=== PATIENT | male | born 1935 | race Caucasian/White ===

== ENCOUNTER 2019-04-30 08:38 | Emergency (ER) | payer MEDICARE, BC ==
[2019-04-30 08:59] VITALS: BP 128/71
[2019-04-30] MEDS ORDERED: Sodium Chloride 0.9% 10 ML Syringe FLUSH PRN (09:13)
--- NOTE | 2019-04-30 09:22 | EDM.PDOC ---
ED HPI GENERAL MEDICAL PROBLEM - General Chief Complaint: General Stated Complaint: FEELING WEAK AFTER HAVING DAILYSIS PORT PUT IN Time Seen by Provider: 04/30/19 08:53 Source of Information: Reports: Patient, Family History Limitations: Reports: No Limitations - History of Present Illness INITIAL COMMENTS - FREE TEXT/NARRATIVE: The patient presents with generalized weakness. This started yesterday. On Thursday he had a fistula put in his right arm. He had fistula put in back in December but it failed. He says his legs feel like they are giving out. He feels weak to move. He has no fever but he has chills at times. He has no cough or chest pain. He does have shortness of breath at times but that is normal for him. He has no abdominal pain, nausea or vomiting and he is eating okay. He has a history of bladder cancer that was treated with chemo. He is not sure why his kidney's failed he thought it may be related to the chemo and cancer from a few years ago. He has a pacemaker. That was put in years ago and he is not sure why. He has no dysuria or diarrhea. Onset: Gradual Duration: Day(s): (Yesterday) Severity: Moderate Improves with: Reports: None Worsens with: Reports: None Associated Symptoms: Reports: Fever/Chills, Shortness of Breath. Denies: Chest Pain, Cough, Headaches, Nausea/Vomiting - Related Data Allergies Allergy/AdvReac Type Severity Reaction Status Date / Time No Known Allergies Allergy Verified 04/30/19 08:59 Home Meds: Home Meds Aspirin 81 mg PO DAILY 09/30/15 [History] Desonide [Desowen] 60 gm TP BID PRN 09/30/15 [History] Finasteride [Proscar] 5 mg PO DAILY 09/30/15 [History] Metoprolol Succinate [Toprol XL] 50 mg PO BEDTIME 09/30/15 [History] Simvastatin [Zocor] 40 mg PO BEDTIME 09/30/15 [History] Tamsulosin [Flomax] 0.4 mg PO BEDTIME 09/30/15 [History] Cefpodoxime [Vantin] 400 mg PO BID #12 tab 10/07/15 [Rx] Past Medical History HEENT History: Reports: Hard of Hearing, Impaired Vision Other HEENT History: wears glasses Cardiovascular History: Reports: Afib, High Cholesterol, Hypertension, Pacemaker Genitourinary History: Reports: BPH, UTI, Recurrent, Other (See Below) Other Genitourinary History: enlarged prostate Musculoskeletal History: Reports: Arthritis, Gout Oncologic (Cancer) History: Reports: Bladder - Past Surgical History HEENT Surgical History: Reports: Cataract Surgery GI Surgical History: Reports: Colonoscopy Male Surgical History: Reports: TURBT-Transurethral Resection of Bladder Tumor ED ROS GENERAL - Review of Systems Review Of Systems: See Below Constitutional: Reports: Chills, Malaise, Weakness, Fatigue. Denies: Fever HEENT: Reports: No Symptoms Respiratory: Reports: No Symptoms Cardiovascular: Reports: No Symptoms Endocrine: Reports: No Symptoms GI/Abdominal: Reports: No Symptoms : Reports: No Symptoms Musculoskeletal: Reports: No Symptoms Skin: Reports: No Symptoms ED EXAM, GENERAL - Physical Exam Exam: See Below Exam Limited By: No Limitations General Appearance: Alert, No Apparent Distress Ears: Normal External Exam Nose: Normal Inspection Head: Atraumatic, Normocephalic Neck: Normal Inspection Respiratory/Chest: No Respiratory Distress, Lungs Clear, Normal Breath Sounds Cardiovascular: Regular Rate, Rhythm, No Edema, No Murmur GI/Abdominal: Soft, Non-Tender, No Organomegaly, No Mass Extremities: Other (Right arm has an incision in the distal upper arm. Palpable thril is noted. Mild edema in the distal arm.) Course - Vital Signs Last Recorded V/S: Last Vital Signs Temp 97.9 F 04/30/19 08:56 Pulse 79 04/30/19 08:56 Resp 16 04/30/19 08:56 BP 128/71 04/30/19 08:56 Pulse Ox 100 04/30/19 08:56 - Orders/Labs/Meds Orders: Active Orders 24 hr Category Date Time Status Cardiac Monitoring [RC] . DIRECTED Care 04/30/19 09:13 Active EKG Documentation Completion [RC] STAT Care 04/30/19 09:14 Active Peripheral IV Care [RC] . DIRECTED Care 04/30/19 09:14 Active Chest 1V Frontal [CR] Stat Exams 04/30/19 09:14 Taken Sodium Chloride 0.9% [Saline Flush] Med 04/30/19 09:13 Active 10 ml FLUSH ASDIRECTED PRN Peripheral IV Insertion Adult [OM.PC] Stat Oth 04/30/19 09:13 Ordered Medication Orders Sodium Chloride (Saline Flush) 10 ml FLUSH ASDIRECTED PRN PRN Reason: Keep Vein Open Labs: Laboratory Tests 04/30/19 04/30/19 04/30/19 Range/Units 09:35 09:35 11:38 WBC 8.79 (4.23-9.07) K/mm3 RBC 3.39 L (4.63-6.08) M/mm3 Hgb 9.2 L (13.7-17.5) gm/L Hct 30.6 L (40.1-51.0) % MCV 90.3 (79.0-92.2) fl MCH 27.1 (25.7-32.2) pg MCHC 30.1 L (32.2-35.5) g/dl RDW Std Deviation 46.7 H (35.1-43.9) fL Plt Count 181 (163-337) K/mm3 MPV 9.8 (9.4-12.3) fl Neut % (Auto) 73.8 H (34.0-67.9) % Lymph % (Auto) 9.6 L (21.8-53.1) % Parker % (Auto) 8.5 (5.3-12.2) % Eos % (Auto) 7.6 H (0.8-7.0) Baso % (Auto) 0.3 (0.1-1.2) % Neut # (Auto) 6.48 H (1.78-5.38) K/mm3 Lymph # (Auto) 0.84 L (1.32-3.57) K/mm3 Parker # (Auto) 0.75 (0.30-0.82) K/mm3 Eos # (Auto) 0.67 H (0.04-0.54) K/mm3 Baso # (Auto) 0.03 (0.01-0.08) K/mm3 Manual Slide Review Abnormal smear Sodium 141 (136-145) mEq/L Potassium 3.9 (3.5-5.1) mEq/L Chloride 104 (98-107) mEq/L Carbon Dioxide 22 (21-32) mEq/L Anion Gap 18.9 H (5-15) BUN 90 H D (7-18) mg/dL Creatinine 4.4 H D (0.7-1.3) mg/dL Est Cr Clr Drug Dosing 14.45 mL/min Estimated GFR (MDRD) 13 (>60) mL/min BUN/Creatinine Ratio 20.5 H (14-18) Glucose 114 (83-115) mg/dL Calcium 9.0 (8.5-10.1) mg/dL Magnesium 1.9 (1.8-2.4) mg/dl Total Bilirubin 0.3 (0.2-1.0) mg/dL AST 16 (15-37) U/L ALT 16 (16-63) U/L Alkaline Phosphatase 43 L (46-116) U/L Troponin I 0.078 H* (0.00-0.056) ng/mL Total Protein 6.3 L (6.4-8.2) g/dl Albumin 2.8 L (3.4-5.0) g/dl Globulin 3.5 gm/dL Albumin/Globulin Ratio 0.8 L (1-2) Urine Color Yellow (Yellow) Urine Appearance Clear (Clear) Urine pH 7.0 (5.0-8.0) Ur Specific [place] 1.015 (1.005-1.030) Urine Protein 2+ H (Negative) Urine Glucose (UA) Negative (Negative) Urine Ketones Negative (Negative) Urine Occult Blood 1+ H (Negative) Urine Nitrite Negative (Negative) Urine Bilirubin Negative (Negative) Urine Urobilinogen 0.2 (0.2-1.0) Ur Leukocyte Esterase 1+ H (Negative) Urine RBC 0-5 (0-5) /hpf Urine WBC 0-5 (0-5) /hpf Ur Epithelial Cells 0-5 (0-5) /hpf Urine Bacteria Rare (FEW) /hpf Urine Mucus Not seen (FEW) /hpf 04/30/19 Range/Units 12:00 WBC (4.23-9.07) K/mm3 RBC (4.63-6.08) M/mm3 Hgb (13.7-17.5) gm/L Hct (40.1-51.0) % MCV (79.0-92.2) fl MCH (25.7-32.2) pg MCHC (32.2-35.5) g/dl RDW Std Deviation (35.1-43.9) fL Plt Count (163-337) K/mm3 MPV (9.4-12.3) fl Neut % (Auto) (34.0-67.9) % Lymph % (Auto) (21.8-53.1) % Parker % (Auto) (5.3-12.2) % Eos % (Auto) (0.8-7.0) Baso % (Auto) (0.1-1.2) % Neut # (Auto) (1.78-5.38) K/mm3 Lymph # (Auto) (1.32-3.57) K/mm3 Parker # (Auto) (0.30-0.82) K/mm3 Eos # (Auto) (0.04-0.54) K/mm3 Baso # (Auto) (0.01-0.08) K/mm3 Manual Slide Review Sodium (136-145) mEq/L Potassium (3.5-5.1) mEq/L Chloride (98-107) mEq/L Carbon Dioxide (21-32) mEq/L Anion Gap (5-15) BUN (7-18) mg/dL Creatinine (0.7-1.3) mg/dL Est Cr Clr Drug Dosing mL/min Estimated GFR (MDRD) (>60) mL/min BUN/Creatinine Ratio (14-18) Glucose (83-115) mg/dL Calcium (8.5-10.1) mg/dL Magnesium (1.8-2.4) mg/dl Total Bilirubin (0.2-1.0) mg/dL AST (15-37) U/L ALT (16-63) U/L Alkaline Phosphatase (46-116) U/L Troponin I 0.080 H* (0.00-0.056) ng/mL Total Protein (6.4-8.2) g/dl Albumin (3.4-5.0) g/dl Globulin gm/dL Albumin/Globulin Ratio (1-2) Urine Color (Yellow) Urine Appearance (Clear) Urine pH (5.0-8.0) Ur Specific [place] (1.005-1.030) Urine Protein (Negative) Urine Glucose (UA) (Negative) Urine Ketones (Negative) Urine Occult Blood (Negative) Urine Nitrite (Negative) Urine Bilirubin (Negative) Urine Urobilinogen (0.2-1.0) Ur Leukocyte Esterase (Negative) Urine RBC (0-5) /hpf Urine WBC (0-5) /hpf Ur Epithelial Cells (0-5) /hpf Urine Bacteria (FEW) /hpf Urine Mucus (FEW) /hpf Meds: Medications Generic Name Dose Route Start Last Admin Trade Name Freq PRN Reason Stop Dose Admin Sodium Chloride 10 ml 04/30/19 09:13 Saline Flush FLUSH ASDIRECTED PRN Keep Vein Open - Re-Assessments/Exams Free Text/Narrative Re-Assessment/Exam: 04/30/19 09:24 I ordered an IV saline lock, EKG, CXR, labs and UA. 04/30/19 13:14 His EKG shows a NSR with PVCs and Q waves in the anterior leads. 04/30/19 13:15 His WBC is normal at 8.79. His Hgb was low at 9.2. That is near baseline for him of 9.4. His anion gap was elevated at 18.9. His BUN was is elevated at 90. His creatinine was elevated at 4.4. His troponin is elevated at 0.078. I rechecked a troponin and it was 0.08. I called [facility] and talked to the coil repair technician Dr Lopez and he said this is normal. I will discharge him to home. Departure - Departure Time of Disposition: 13:20 Disposition: Home, Self-Care 01 Condition: Good Clinical Impression: Generalized weakness, Kidney disease Anemia Qualifiers: Anemia type: other cause Other causes of anemia: other cause, not classified Qualified Code(s): D64.89 - Other specified anemias - Discharge Information *PRESCRIPTION DRUG MONITORING PROGRAM REVIEWED*: No *COPY OF PRESCRIPTION DRUG MONITORING REPORT IN PATIENT [place]: No Referrals: Jasper Haines MD [Primary Care Provider] - 1 Week Forms: ED Department Discharge Additional Instructions: Take your medication as prescribed. Follow up with your doctor within 1 week. Please return if you are worse. - My Orders Last 24 Hours: My Active Orders 04/30/19 09:13 Cardiac Monitoring [RC] . DIRECTED Sodium Chloride 0.9% [Saline Flush] 10 ml FLUSH ASDIRECTED PRN Peripheral IV Insertion Adult [OM.PC] Stat 04/30/19 09:14 EKG Documentation Completion [RC] STAT Peripheral IV Care [RC] . DIRECTED Chest 1V Frontal [CR] Stat - Assessment/Plan Last 24 Hours: My Active Orders 04/30/19 09:13 Cardiac Monitoring [RC] . DIRECTED Sodium Chloride 0.9% [Saline Flush] 10 ml FLUSH ASDIRECTED PRN Peripheral IV Insertion Adult [OM.PC] Stat 04/30/19 09:14 EKG Documentation Completion [RC] STAT Peripheral IV Care [RC] . DIRECTED Chest 1V Frontal [CR] Stat
--- NOTE | 2019-05-01 11:46 | CR ---
Chest: Portable view of the chest was obtained. Comparison: Prior chest x-ray of 10/02/15. Heart size and mediastinum are within normal limits for portable technique. Nodular density is seen adjacent to the upper left cardiac apex within the left lung which appears stable from previous exam. No acute parenchymal change is appreciated. Bichamber pacemaker is present. Bony structures are grossly intact. Impression: 1. Stable findings as noted above. 2. Nothing acute is appreciated on portable chest x-ray. Diagnostic code #2
== END 2019-04-30 13:34 | disposition home or self-care (01) ==
LOC: JD.ED 08:38
DX: R53.1 Weakness (principal); D64.89 Other specified anemias; N28.9 Disorder of kidney and ureter, unspecified; I10 Essential (primary) hypertension; I48.91 Unspecified atrial fibrillation; E78.00 Pure hypercholesterolemia, unspecified; N40.0 Benign prostatic hyperplasia without lower urinary tract symptoms; M19.90 Unspecified osteoarthritis, unspecified site; M10.9 Gout, unspecified; Z79.82 Long term (current) use of aspirin; Z79.899 Other long term (current) drug therapy
CPT/HCPCS: 36415; 71045; 71045-26; 80053; 81001; 83735; 84484; 85025; 93005; 99285-25

== ENCOUNTER 2019-05-06 01:47 | Emergency (ER) | payer MEDICARE, BC ==
[2019-05-06 01:58] VITALS: BP 124/66
--- NOTE | 2019-05-06 02:37 | EDM.PDOC ---
ED HPI GENERAL MEDICAL PROBLEM - General Chief Complaint: Fever Stated Complaint: [facility] Time Seen by Provider: 05/06/19 02:11 Source of Information: Reports: Patient, Family (, son) History Limitations: Reports: No Limitations - History of Present Illness INITIAL COMMENTS - FREE TEXT/NARRATIVE: Mr. Tucker is a very pleasant 83-year-old gentleman with a past medical history significant for stage V renal insufficiency and paroxysmal atrial fibrillation, who underwent a right AV fistula placement on 04/26/2019 at [facility]. He was seen in our emergency department on 04/30/2019 with a complaint of generalized weakness. He was found to be hemodynamically stable and afebrile. Workup included a CBC, a CMP, a troponin I, a urinalysis, a chest x- ray, and an ECG. His workup was, for the most part, unremarkable, with the exception that his BUN/Cr were elevated at 90/4.4, and his troponin elevated at 0.078, likely due to his renal insufficiency. The patient was discharged home with a prescription for Bactrim, to treat possible right arm cellulitis. The patient now returns to the ED with a complaint of continued generalized weakness, worse since 21:00 last night, then a fever of 102.8 measured just before midnight tonight. The patient also vomited once tonight. He has not had a cough. No recent watery diarrhea. The patient reports chronic mild dyspnea, that is unchanged. In the ED, the patient was found to be in atrial fibrillation, confirmed by ECG. He is afebrile, saturating 95% on room air. The patient's PCP is Dr. Jasper Haines. His Vascular Surgeon is Dr. Chas Bernard. His Health Lead is Dr. Danial Cohen. His Steel Sampler is Dr. Mala Flanagan. - Related Data Allergies Allergy/AdvReac Type Severity Reaction Status Date / Time No Known Allergies Allergy Verified 04/30/19 08:59 Home Meds: Home Meds Aspirin 81 mg PO DAILY 09/30/15 [History] Metoprolol Succinate [Toprol XL] 50 mg PO BEDTIME 09/30/15 [History] Simvastatin [Zocor] 40 mg PO BEDTIME 09/30/15 [History] Tamsulosin [Flomax] 0.4 mg PO BEDTIME 09/30/15 [History] Allopurinol [Zyloprim] 200 mg PO DAILY 05/06/19 [History] Dutasteride [Avodart] 0.5 mg PO DAILY 05/06/19 [History] Furosemide 20 mg PO DAILY 05/06/19 [History] Sodium Bicarbonate 650 mg PO DAILY 05/06/19 [History] Past Medical History HEENT History: Reports: Hard of Hearing, Impaired Vision Other HEENT History: wears glasses Cardiovascular History: Reports: Afib (paroxysmal), High Cholesterol, Hypertension Genitourinary History: Reports: BPH, Chronic Renal Insuffiency (Stage V) Musculoskeletal History: Reports: Arthritis, Gout (suspected, not confirmed) Oncologic (Cancer) History: Reports: Bladder (dx'd 2013, s/p TURBT + CTx) - Past Surgical History HEENT Surgical History: Reports: Cataract Surgery (bilateral) Cardiovascular Surgical History: Reports: Brook (2009) GI Surgical History: Reports: Colonoscopy (x 1). Denies: EGD Male Surgical History: Reports: TURBT-Transurethral Resection of Bladder Tumor (2013) Social & Family History - Tobacco Use Smoking Status *Q: Former Smoker Years of Tobacco use: 12 Packs/Tins Daily: 0.8 Month/Year Tobacco Last Used: Quit 1975 - Caffeine Use Caffeine Use: Reports: Coffee - Alcohol Use Alcohol Use History: No - Recreational Drug Use Recreational Drug Use: No - Living Situation & Occupation Living situation: Reports: , with Spouse Occupation: Retired ED ROS GENERAL - Review of Systems Review Of Systems: ROS reveals no pertinent complaints other than HPI. ED EXAM, SEPSIS - Physical Exam Exam: See Below Exam Limited By: No Limitations General Appearance: Alert, WD/WN, No Apparent Distress Eye Exam: Bilateral Eye: EOMI, Normal Inspection Ears: Normal External Exam, Hearing Loss Nose: Normal Inspection Throat/Mouth: Normal Inspection, Normal Lips, Normal Voice, No Airway Compromise Head: Atraumatic, Normocephalic Neck: Normal Inspection, Full Range of Motion. No: Lymphadenopathy (L), Lymphadenopathy (R) Respiratory/Chest: No Respiratory Distress, Lungs Clear, Normal Breath Sounds, No Accessory Muscle Use. No: Decreased Breath Sounds, Crackles, Rhonchi, Wheezing, Stridor, Prolonged Expiration Cardiovascular: Normal Peripheral Pulses, No Gallop, No JVD, No Murmur, No Rub, Tachycardia, Irregularly Irregular Peripheral Pulses: 4+: Radial (L), Radial (R) GI/Abdominal Exam: Normal Bowel Sounds, Soft, Non-Tender, No Organomegaly, No Distention, No Abnormal Bruit, No Mass (Male) Exam: Deferred Rectal (Males) Exam: Deferred Back: Normal Inspection, Full Range of Motion, NT Extremities: Normal Inspection, Normal Range of Motion, Normal Capillary Refill , Other (1+ pitting pretibial edema bilaterally. Good thrill over right antecubetal AVF. No associated erythema, swelling, or tenderness.) Neurological: Alert, Oriented, Normal Cognition, No Motor/Sensory Deficits Psychiatric: Normal Affect Skin: Warm, Dry, Intact, Normal Color, No Rash Lymphatic: Bilateral: No Adenopathy EKG INTERPRETATION EKG Date: 05/06/19 Time: 02:11 Rhythm: Other (NSR with 2 PVCs to A-fib with RVR) Rate (Beats/Min): 157 [place]: Normal P-Wave: Present (for part of the ECG. When present, no AE or AVB) QRS: Normal ST-T: Normal QT: Normal Comparison: Change From Previous EKG (Was in NSR 04/30/2019) Course - Vital Signs Last Recorded V/S: Last Vital Signs Temp 37.8 C 05/06/19 01:54 Pulse 136 H 05/06/19 01:54 Resp 15 05/06/19 01:54 BP 124/66 05/06/19 01:54 Pulse Ox 95 05/06/19 01:54 - Orders/Labs/Meds Orders: Active Orders 24 hr Category Date Time Status EKG Documentation Completion [RC] ROUTINE Care 05/06/19 02:03 Active Chest 1V Frontal [CR] Stat Exams 05/06/19 02:13 Taken CULTURE BLOOD [BC] Stat Lab 05/06/19 02:45 Received CULTURE BLOOD [BC] Stat Lab 05/06/19 03:00 Received Linezolid [Zyvox] 600 mg Med 05/06/19 04:09 Active Premix Bag 1 bag IV ONETIME Sodium Chloride 0.9% [Normal Saline] 1,000 ml Med 05/06/19 02:45 Active IV ASDIRECTED Blood Culture x2 Reflex Set [OM.PC] Stat Oth 05/06/19 02:13 Ordered Medication Orders Sodium Chloride (Normal Saline) 1,000 mls @ 150 mls/hr IV ASDIRECTED DOUGLAS Last Admin: 05/06/19 02:51 Dose: 150 mls/hr Linezolid 600 mg/ Premix 300 mls @ 300 mls/hr IV ONETIME STA Stop: 05/06/19 05:08 Last Admin: 05/06/19 04:23 Dose: 300 mls/hr Labs: Laboratory Tests 05/06/19 05/06/19 05/06/19 Range/Units 02:35 02:45 02:45 WBC 11.24 H (4.23-9.07) K/mm3 RBC 3.04 L (4.63-6.08) M/mm3 Hgb 8.3 L (13.7-17.5) gm/L Hct 26.8 L (40.1-51.0) % MCV 88.2 (79.0-92.2) fl MCH 27.3 (25.7-32.2) pg MCHC 31.0 L (32.2-35.5) g/dl RDW Std Deviation 45.6 H (35.1-43.9) fL Plt Count 208 (163-337) K/mm3 MPV 9.3 L (9.4-12.3) fl Neutrophils % (Manual) 81 H (40-60) % Band Neutrophils % 5 (0-10) % Lymphocytes % (Manual) 3 L (20-40) % Atypical Lymphs % 0 % Monocytes % (Manual) 9 (2-10) % Eosinophils % (Manual) 2 (0.8-7.0) % Basophils % (Manual) 0 L (0.2-1.2) Toxic Granulation 1+ slight Platelet Estimate Adequate Plt Morphology Comment Normal Hypochromasia 1+ slight Anisocytosis 1+ slight Ovalocytes 1+ slight RBC Morph Comment Not Reportable D-Dimer, Quantitative 3.18 H (0.19-0.50) mg/L Puncture Site Lt radial ABG pH 7.47 H (7.35-7.45) ABG pCO2 23.0 L (35.0-45.0) mmHg ABG pO2 64.0 L (80.0-100.0) mmHg ABG HCO3 16.4 L (22.0-26.0) meq/L ABG O2 Saturation 93.3 L (96.0-97.0) % ABG Base Excess -6.1 L (-2-2.0) Chirag Test Positive A-a Gradient 57 mmHg O2 Delivery Device Room air Oxygen Flow Rate 0.0 FiO2 21.00 (21.00-100.00) % Sodium (136-145) mEq/L Potassium (3.5-5.1) mEq/L Chloride (98-107) mEq/L Carbon Dioxide (21-32) mEq/L Anion Gap (5-15) BUN (7-18) mg/dL Creatinine (0.7-1.3) mg/dL Est Cr Clr Drug Dosing mL/min Estimated GFR (MDRD) (>60) mL/min BUN/Creatinine Ratio (14-18) Glucose (83-115) mg/dL Lactic Acid (0.4-2.0) mmol/L Calcium (8.5-10.1) mg/dL Magnesium (1.8-2.4) mg/dl Total Bilirubin (0.2-1.0) mg/dL AST (15-37) U/L ALT (16-63) U/L Alkaline Phosphatase (46-116) U/L Troponin I (0.00-0.056) ng/mL Total Protein (6.4-8.2) g/dl Albumin (3.4-5.0) g/dl Globulin gm/dL Albumin/Globulin Ratio (1-2) Urine Color (Yellow) Urine Appearance (Clear) Urine pH (5.0-8.0) Ur Specific [place] (1.005-1.030) Urine Protein (Negative) Urine Glucose (UA) (Negative) Urine Ketones (Negative) Urine Occult Blood (Negative) Urine Nitrite (Negative) Urine Bilirubin (Negative) Urine Urobilinogen (0.2-1.0) Ur Leukocyte Esterase (Negative) Urine RBC (0-5) /hpf Urine WBC (0-5) /hpf Ur Squamous Epith Cells (0-5) /hpf Urine Bacteria (FEW) /hpf Hyaline Casts (0-5) /lpf Urine Mucus (FEW) /hpf 05/06/19 05/06/19 05/06/19 Range/Units 02:45 02:45 03:15 WBC (4.23-9.07) K/mm3 RBC (4.63-6.08) M/mm3 Hgb (13.7-17.5) gm/L Hct (40.1-51.0) % MCV (79.0-92.2) fl MCH (25.7-32.2) pg MCHC (32.2-35.5) g/dl RDW Std Deviation (35.1-43.9) fL Plt Count (163-337) K/mm3 MPV (9.4-12.3) fl Neutrophils % (Manual) (40-60) % Band Neutrophils % (0-10) % Lymphocytes % (Manual) (20-40) % Atypical Lymphs % % Monocytes % (Manual) (2-10) % Eosinophils % (Manual) (0.8-7.0) % Basophils % (Manual) (0.2-1.2) Toxic Granulation Platelet Estimate Plt Morphology Comment Hypochromasia Anisocytosis Ovalocytes RBC Morph Comment D-Dimer, Quantitative (0.19-0.50) mg/L Puncture Site ABG pH (7.35-7.45) ABG pCO2 (35.0-45.0) mmHg ABG pO2 (80.0-100.0) mmHg ABG HCO3 (22.0-26.0) meq/L ABG O2 Saturation (96.0-97.0) % ABG Base Excess (-2-2.0) Chirag Test A-a Gradient mmHg O2 Delivery Device Oxygen Flow Rate FiO2 (21.00-100.00) % Sodium 136 (136-145) mEq/L Potassium 4.3 (3.5-5.1) mEq/L Chloride 102 (98-107) mEq/L Carbon Dioxide 18 L (21-32) mEq/L Anion Gap 20.3 H (5-15) BUN 104 H (7-18) mg/dL Creatinine 5.6 H D (0.7-1.3) mg/dL Est Cr Clr Drug Dosing 11.36 mL/min Estimated GFR (MDRD) 10 (>60) mL/min BUN/Creatinine Ratio 18.6 H (14-18) Glucose 131 H (83-115) mg/dL Lactic Acid 1.5 (0.4-2.0) mmol/L Calcium 8.6 (8.5-10.1) mg/dL Magnesium 2.0 (1.8-2.4) mg/dl Total Bilirubin 0.2 (0.2-1.0) mg/dL AST 16 (15-37) U/L ALT 20 (16-63) U/L Alkaline Phosphatase 45 L (46-116) U/L Troponin I 0.098 H* (0.00-0.056) ng/mL Total Protein 6.4 (6.4-8.2) g/dl Albumin 2.8 L (3.4-5.0) g/dl Globulin 3.6 gm/dL Albumin/Globulin Ratio 0.8 L (1-2) Urine Color Yellow (Yellow) Urine Appearance Clear (Clear) Urine pH 7.0 (5.0-8.0) Ur Specific [place] 1.020 (1.005-1.030) Urine Protein 2+ H (Negative) Urine Glucose (UA) Negative (Negative) Urine Ketones Negative (Negative) Urine Occult Blood 1+ H (Negative) Urine Nitrite Negative (Negative) Urine Bilirubin Negative (Negative) Urine Urobilinogen 0.2 (0.2-1.0) Ur Leukocyte Esterase 1+ H (Negative) Urine RBC 0-5 (0-5) /hpf Urine WBC 0-5 (0-5) /hpf Ur Squamous Epith Cells 0-5 (0-5) /hpf Urine Bacteria Moderate H (FEW) /hpf Hyaline Casts 0-5 (0-5) /lpf Urine Mucus Few (FEW) /hpf Meds: Medications Generic Name Dose Route Start Last Admin Trade Name Freq PRN Reason Stop Dose Admin Sodium Chloride 1,000 mls @ 150 mls/hr 05/06/19 02:45 05/06/19 02:51 Normal Saline IV 150 mls/hr ASDIRECTED DOUGLAS Administration Linezolid 600 mg/ Premix 300 mls @ 300 mls/hr 05/06/19 04:09 05/06/19 04:23 IV 05/06/19 05:08 300 mls/hr ONETIME STA Administration Discontinued Medications Generic Name Dose Route Start Last Admin Trade Name Freq PRN Reason Stop Dose Admin Ondansetron HCl 4 mg 05/06/19 04:19 05/06/19 04:27 Zofran IVPUSH 05/06/19 04:20 4 mg ONETIME ONE Administration - Re-Assessments/Exams Free Text/Narrative Re-Assessment/Exam: 05/06/19 02:35 Although the patient is afebrile here in the ED, I am concerned by the 's report of a temperature of 102.8 at home, and the patient's generalized weakness and vomiting. His physical exam is nonfocal. He has a good thrill in his right AV fistula, but I'm concerned about an underlying infection, in particular, endocarditis. I have ordered a workup that included blood cultures, as well as a lactic acid, a CBC with a manual differential, and a chest x-ray. 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 I would consider treating with diltiazem, however, his blood pressure is only 91 /55, therefore I don't believe that would be holloway. At this time, I will treat him with some IV fluid. 05/06/19 03:19 Portable chest radiograph reviewed. The cardiac silhouette is within normal limits. No pulmonary vascular congestion. No pleural effusions seen on this AP view. No focal infiltrate. No pneumothorax. 3 granulomas noted within the left lung. 2-chamber left-sided pacer incidentally noted. Formal read per the Radiologist pending. 05/06/19 03:35 The patient's CBC is remarkable for a WBC count elevated at 11.24 with 5% bandemia, and an H/H depressed at 8.3/26.8. The remainder of the CBC is unremarkable. His CMP is remarkable for a bicarbonate depressed at 18, with an anion gap of 20.3. His BUN/Cr are significantly elevated at 104/5.6. His blood glucose is slightly elevated at 131. His albumin is depressed at 2.8. The remainder of the CMP is unremarkable. His magnesium level is within normal limits at 2.0. His troponin is slightly elevated at 0.098. His lactic acid is within normal limits at 1.5. His D-dimer is elevated at 3.18. His ABG demonstrates either a partially compensated primary respiratory alkalosis, versus acute on chronic respiratory alkalosis, versus a mixed primary respiratory alkalosis with small metabolic acidosis. The urinalysis results are still pending. Albeit modest, the patient does have an elevated WBC count with a left shift, indicating an underlying bacterial infection. While I do not hear a murmur on cardiac auscultation, I am concerned about infective endocarditis. The patient's metabolic acidosis may be in part in response to the patient's primary respiratory alkalosis, however, is most likely related to his renal insufficiency. Similarly, the patient's elevated troponin and D-dimer are most likely due to his renal insufficiency. There is a possibility that he could have a pulmonary embolus as the cause of his respiratory alkalosis, and this should not be discounted, however, given the degree of his renal insufficiency, I don't believe that it would be prudent to perform a CT angiogram of the chest , as the iodinated contrast could conceivably push the patient into dialysis. I think it is more likely that the patient's respiratory alkalosis is in response to his atrial fibrillation with RVR. 05/06/19 04:08 Case discussed with Sid at [facility] One Call at 03:44. Case then discussed with Dr. Farmer, Hospitalist at [facility], at 04:04. He accepted the patient for transfer to their facility. When asked what empiric antibiotic he would prefer, he recommended linezolid (Zyvox). I will order 600 mg of IV linezolid. The patient will be transported by ground ambulance. 05/06/19 04:38 The patient's urinalysis is unremarkable. Departure - Departure Time of Disposition: 04:20 Disposition: DC/Tfer to Acute Hospital 02 Condition: Fair Clinical Impression: Fever, Nausea & vomiting, Paroxysmal atrial fibrillation with rapid ventricular response, Chronic renal insufficiency, stage V, Respiratory alkalosis, High anion gap metabolic acidosis - Discharge Information *PRESCRIPTION DRUG MONITORING PROGRAM REVIEWED*: Not Applicable *COPY OF PRESCRIPTION DRUG MONITORING REPORT IN PATIENT SAVANAH: Not Applicable Referrals: Jasper Haines MD [Primary Care Provider] - Danial Cohen MD [Ordering Only Provider] - Chas Bernard MD [Ordering Only Provider] - Mala Flanagan MD [Ordering Only Provider] - - My Orders Last 24 Hours: My Active Orders 05/06/19 02:03 EKG Documentation Completion [RC] ROUTINE 05/06/19 02:13 Chest 1V Frontal [CR] Stat Blood Culture x2 Reflex Set [OM.PC] Stat 05/06/19 02:45 CULTURE BLOOD [BC] Stat Sodium Chloride 0.9% [Normal Saline] 1,000 ml IV ASDIRECTED 05/06/19 03:00 CULTURE BLOOD [BC] Stat 05/06/19 04:09 Linezolid [Zyvox] 600 mg Premix Bag 1 bag IV ONETIME - Assessment/Plan Last 24 Hours: My Active Orders 05/06/19 02:03 EKG Documentation Completion [RC] ROUTINE 05/06/19 02:13 Chest 1V Frontal [CR] Stat Blood Culture x2 Reflex Set [OM.PC] Stat 05/06/19 02:45 CULTURE BLOOD [BC] Stat Sodium Chloride 0.9% [Normal Saline] 1,000 ml IV ASDIRECTED 05/06/19 03:00 CULTURE BLOOD [BC] Stat 05/06/19 04:09 Linezolid [Zyvox] 600 mg Premix Bag 1 bag IV ONETIME
[2019-05-06] MEDS ORDERED: Sodium Chloride 0.9% 1,000 ML IV SCH (02:45)
[2019-05-06] MEDS ORDERED: Linezolid 600 MG in Premix Bag 1 BAG IV STA (04:09)
[2019-05-06] MEDS ORDERED: Ondansetron 4 MG/2 ML SDV IVPUSH ONE (04:19)
--- NOTE | 2019-05-06 09:10 | CR ---
Chest: Frontal view of the chest was obtained. Comparison: Prior chest x-ray of 04/30/19. Heart size and mediastinum are within normal limits. Bichamber pacemaker is seen. Lungs are clear with no acute parenchymal change. Bony structures are grossly intact. Impression: 1. Nothing acute is seen on frontal chest x-ray. Diagnostic code #2
== END 2019-05-06 04:56 ==
LOC: JD.ED 01:47
DX: I48.0 Paroxysmal atrial fibrillation (principal); I13.11 Hypertensive heart and chronic kidney disease without heart failure, with stage 5 chronic kidney disease, or end stage renal disease; N18.5 Chronic kidney disease, stage 5; E87.3 Alkalosis; E87.2 Acidosis; R50.9 Fever, unspecified; E78.00 Pure hypercholesterolemia, unspecified; M10.9 Gout, unspecified; N40.0 Benign prostatic hyperplasia without lower urinary tract symptoms; Z87.891 Personal history of nicotine dependence; Z79.82 Long term (current) use of aspirin; Z79.899 Other long term (current) drug therapy
CPT/HCPCS: 36415; 36600; 71045; 80053; 81001; 82803; 83605; 83735; 84484; 85007; 85027; 85379; 87040; 93005; 96361; 96365; 96375; 99285; J2020; J2405; J7040; 93010

== ENCOUNTER 2020-04-14 18:32 | Emergency (ER) | payer MEDICARE, BC ==
--- NOTE | 2020-04-14 19:06 | EDM.PDOC ---
ED HPI GENERAL MEDICAL PROBLEM - General Chief Complaint: Fever Stated Complaint: FEVER Time Seen by Provider: 04/14/20 19:05 - History of Present Illness INITIAL COMMENTS - FREE TEXT/NARRATIVE: 84-year-old male presents the emergency room with fevers today. Patient has noticed fevers little higher than 101 today he does not seem to hurt anywhere. Patient has had a history of urinary tract infections however he is on hemodialysis. His last dialysis was today his next 1 will be Thursday.. Patient has had new nausea vomiting and no significant abdominal pain he really does not feel sick at this point but is worried about getting sicker. He denies a cough. - Related Data Allergies Allergy/AdvReac Type Severity Reaction Status Date / Time No Known Allergies Allergy Verified 04/30/19 08:59 Home Meds: Home Meds Aspirin 81 mg PO DAILY 09/30/15 [History] Metoprolol Succinate [Toprol XL] 50 mg PO BEDTIME 09/30/15 [History] Tamsulosin [Flomax] 0.4 mg PO BEDTIME 09/30/15 [History] Dutasteride [Avodart] 0.5 mg PO DAILY 05/06/19 [History] Furosemide 20 mg PO DAILY 05/06/19 [History] Sodium Bicarbonate 650 mg PO DAILY 05/06/19 [History] allopurinoL [Zyloprim] 200 mg PO DAILY 05/06/19 [History] levoFLOXacin [Levaquin] 250 mg PO ASDIRECTED #3 tab 04/14/20 [Rx] Past Medical History HEENT History: Reports: Hard of Hearing, Impaired Vision Other HEENT History: wears glasses Cardiovascular History: Reports: Afib (paroxysmal), High Cholesterol, Hyperten reyes Other Cardiovascular History: sick sinus syndrome Genitourinary History: Reports: BPH, Chronic Renal Insuffiency (Stage V) Other Genitourinary History: enlarged prostate Musculoskeletal History: Reports: Arthritis, Gout (suspected, not confirmed) Oncologic (Cancer) History: Reports: Bladder (dx'd 2013, s/p TURBT + CTx) - Past Surgical History HEENT Surgical History: Reports: Cataract Surgery (bilateral) Cardiovascular Surgical History: Reports: Pacer (2008) GI Surgical History: Reports: Colonoscopy (x 1). Denies: EGD Male Surgical History: Reports: TURBT-Transurethral Resection of Bladder Tumor (2013) Social & Family History - Family History Family Medical History: Noncontributory - Caffeine Use Caffeine Use: Reports: Coffee - Living Situation & Occupation Living situation: Reports: , with Spouse Occupation: Retired ED ROS GENERAL - Review of Systems Review Of Systems: See Below Constitutional: Reports: Fever. Denies: Chills, Weakness, Decreased Appetite, Weight Loss HEENT: Reports: No Symptoms Respiratory: Reports: No Symptoms Cardiovascular: Reports: No Symptoms GI/Abdominal: Reports: No Symptoms : Reports: No Symptoms Musculoskeletal: Reports: No Symptoms Skin: Reports: No Symptoms Neurological: Reports: No Symptoms Psychiatric: Reports: No Symptoms ED EXAM, GENERAL - Physical Exam Exam: See Below Exam Limited By: No Limitations General Appearance: Alert, No Apparent Distress Head: Atraumatic, Normocephalic Neck: Normal Inspection, Supple, Non-Tender, Full Range of Motion. No: Lymphadenopathy (L), Lymphadenopathy (R) Respiratory/Chest: No Respiratory Distress, Lungs Clear, Normal Breath Sounds Cardiovascular: Normal Peripheral Pulses, Regular Rate, Rhythm, No Edema GI/Abdominal: Normal Bowel Sounds, Soft, Non-Tender Back Exam: Normal Inspection. No: CVA Tenderness (L), CVA Tenderness (R) Extremities: Normal Inspection, No Pedal Edema Course - Vital Signs Last Recorded V/S: Last Vital Signs Temp 38.8 C H 04/14/20 19:07 Pulse 92 04/14/20 19:07 Resp 20 04/14/20 19:07 BP 114/68 04/14/20 19:07 Pulse Ox 91 L 04/14/20 19:07 - Orders/Labs/Meds Orders: Active Orders 24 hr Category Date Time Status Chest 1V Frontal [CR] Stat Exams 04/14/20 19:59 Taken CULTURE BLOOD [BC] Stat Lab 04/14/20 20:15 Received CULTURE BLOOD [BC] Stat Lab 04/14/20 20:20 Received CULTURE URINE [RM] Stat Lab 04/14/20 20:28 Received Blood Culture x2 Reflex Set [OM.PC] Stat Oth 04/14/20 19:55 Ordered Labs: Laboratory Tests 04/14/20 04/14/20 04/14/20 Range/Units 20:15 20:20 20:20 WBC 9.30 H (4.23-9.07) K/mm3 RBC 3.70 L (4.63-6.08) M/mm3 Hgb 11.6 L D (13.7-17.5) gm/dl Hct 37.4 L (40.1-51.0) % MCV 101.1 H D (79.0-92.2) fl MCH 31.4 (25.7-32.2) pg MCHC 31.0 L (32.2-35.5) g/dl RDW Std Deviation 48.4 H (35.1-43.9) fL Plt Count 210 (163-337) K/mm3 MPV 9.1 L (9.4-12.3) fl Neut % (Auto) 77.9 H (34.0-67.9) % Lymph % (Auto) 9.4 L (21.8-53.1) % [place] % (Auto) 11.0 (5.3-12.2) % Eos % (Auto) 1.1 (0.8-7.0) Baso % (Auto) 0.3 (0.1-1.2) % Neut # (Auto) 7.25 H (1.78-5.38) K/mm3 Lymph # (Auto) 0.87 L (1.32-3.57) K/mm3 [place]er # (Auto) 1.02 H (0.30-0.82) K/mm3 Eos # (Auto) 0.10 (0.04-0.54) K/mm3 Baso # (Auto) 0.03 (0.01-0.08) K/mm3 Manual Slide Review Abnormal smear Sodium 135 L (136-145) mEq/L Potassium 4.1 (3.5-5.1) mEq/L Chloride 97 L (98-107) mEq/L Carbon Dioxide 32 D (21-32) mEq/L Anion Gap 10.1 (5-15) BUN 31 H D (7-18) mg/dL Creatinine 4.0 H D (0.7-1.3) mg/dL Est Cr Clr Drug Dosing 15.63 mL/min Estimated GFR (MDRD) 14 (>60) mL/min BUN/Creatinine Ratio 7.8 L (14-18) Glucose 100 (83-115) mg/dL Lactic Acid 1.1 (0.4-2.0) mmol/L Calcium 8.5 (8.5-10.1) mg/dL Total Bilirubin 0.4 (0.2-1.0) mg/dL AST 11 L (15-37) U/L ALT 17 (16-63) U/L Alkaline Phosphatase 64 (46-116) U/L Total Protein 7.0 (6.4-8.2) g/dl Albumin 3.1 L (3.4-5.0) g/dl Globulin 3.9 gm/dL Albumin/Globulin Ratio 0.8 L (1-2) Urine Color (Yellow) Urine Appearance (Clear) Urine pH (5.0-8.0) Ur Specific [place] (1.005-1.030) Urine Protein (Negative) Urine Glucose (UA) (Negative) Urine Ketones (Negative) Urine Occult Blood (Negative) Urine Nitrite (Negative) Urine Bilirubin (Negative) Urine Urobilinogen (0.2-1.0) Ur Leukocyte Esterase (Negative) Urine RBC (0-5) /hpf Urine WBC (0-5) /hpf Ur Squamous Epith Cells (0-5) /hpf Urine Bacteria (FEW) /hpf Urine Mucus (FEW) /hpf 08/15/20 Range/Units 20:28 WBC (4.23-9.07) K/mm3 RBC (4.63-6.08) M/mm3 Hgb (13.7-17.5) gm/dl Hct (40.1-51.0) % MCV (79.0-92.2) fl MCH (25.7-32.2) pg MCHC (32.2-35.5) g/dl RDW Std Deviation (35.1-43.9) fL Plt Count (163-337) K/mm3 MPV (9.4-12.3) fl Neut % (Auto) (34.0-67.9) % Lymph % (Auto) (21.8-53.1) % [place] % (Auto) (5.3-12.2) % Eos % (Auto) (0.8-7.0) Baso % (Auto) (0.1-1.2) % Neut # (Auto) (1.78-5.38) K/mm3 Lymph # (Auto) (1.32-3.57) K/mm3 [place] # (Auto) (0.30-0.82) K/mm3 Eos # (Auto) (0.04-0.54) K/mm3 Baso # (Auto) (0.01-0.08) K/mm3 Manual Slide Review Sodium (136-145) mEq/L Potassium (3.5-5.1) mEq/L Chloride (98-107) mEq/L Carbon Dioxide (21-32) mEq/L Anion Gap (5-15) BUN (7-18) mg/dL Creatinine (0.7-1.3) mg/dL Est Cr Clr Drug Dosing mL/min Estimated GFR (MDRD) (>60) mL/min BUN/Creatinine Ratio (14-18) Glucose (83-115) mg/dL Lactic Acid (0.4-2.0) mmol/L Calcium (8.5-10.1) mg/dL Total Bilirubin (0.2-1.0) mg/dL AST (15-37) U/L ALT (16-63) U/L Alkaline Phosphatase (46-116) U/L Total Protein (6.4-8.2) g/dl Albumin (3.4-5.0) g/dl Globulin gm/dL Albumin/Globulin Ratio (1-2) Urine Color Yellow (Yellow) Urine Appearance Turbid H (Clear) Urine pH 8.5 H (5.0-8.0) Ur Specific [place] 1.025 (1.005-1.030) Urine Protein 3+ H (Negative) Urine Glucose (UA) Negative (Negative) Urine Ketones Negative (Negative) Urine Occult Blood 2+ H (Negative) Urine Nitrite Negative (Negative) Urine Bilirubin Negative (Negative) Urine Urobilinogen 0.2 (0.2-1.0) Ur Leukocyte Esterase 3+ H (Negative) Urine RBC 0-5 (0-5) /hpf Urine WBC >100 H (0-5) /hpf Ur Squamous Epith Cells 0-5 (0-5) /hpf Urine Bacteria Moderate H (FEW) /hpf Urine Mucus Not seen (FEW) /hpf Meds: Medications Discontinued Medications Generic Name Dose Route Start Last Admin Trade Name Freq PRN Reason Stop Dose Admin Levofloxacin 500 mg 04/14/20 21:06 Levaquin PO 04/14/20 21:07 ONETIME ONE - Re-Assessments/Exams Free Text/Narrative Re-Assessment/Exam: 04/14/20 20:57 cHest x-ray nondiagnostic urinalysis is suspicious. Even on dialysis he still makes some urine, and this is suspicious for an infection. Labs noncontributory for gentleman on dialysis. 04/14/20 21:11 Discussed treatment options with Dr. Oneill, on-call for Dr. Cohen. We will start the patient on Levaquin 500 mg p.o. now then 250 mg after dialysis on Thursday and Thursday. They will recheck his urine at dialysis on the . Departure - Departure Time of Disposition: 21:13 Disposition: Home, Self-Care 01 Clinical Impression: UTI (urinary tract infection) - Discharge Information Referrals: Jasper Haines MD [Primary Care Provider] - Forms: ED Department Discharge Additional Instructions: Return to the emergency room with any questions problems or worsening symptoms. You have been started on Levaquin, this is an antibiotic, for the urinary tract infection. This medication is cleared by the kidneys. You have been given a dose here in the emergency room take your next 3 doses after dialysis this coming Thursday and Thursday and then you will be done. On the you should have a repeat urinalysis done at dialysis. Sepsis Event Note (ED) - Focused Exam Vital Signs: Vital Signs Temp Pulse Resp BP Pulse Ox 04/14/20 19:07 38.8 C H 92 20 114/68 91 L - My Orders Last 24 Hours: My Active Orders 04/14/20 19:55 Blood Culture x2 Reflex Set [OM.PC] Stat 04/14/20 19:59 Chest 1V Frontal [CR] Stat 04/14/20 20:15 CULTURE BLOOD [BC] Stat 04/14/20 20:20 CULTURE BLOOD [BC] Stat 04/14/20 20:28 CULTURE URINE [RM] Stat - Assessment/Plan Last 24 Hours: My Active Orders 04/14/20 19:55 Blood Culture x2 Reflex Set [OM.PC] Stat 04/14/20 19:59 Chest 1V Frontal [CR] Stat 04/14/20 20:15 CULTURE BLOOD [BC] Stat 04/14/20 20:20 CULTURE BLOOD [BC] Stat 04/14/20 20:28 CULTURE URINE [RM] Stat
[2020-04-14 19:13] VITALS: BP 114/68; PULSE 92
[2020-04-14] MEDS ORDERED: Levofloxacin 500 MG Tab PO ONE (21:06)
--- NOTE | 2020-04-15 13:29 | CR ---
Chest: Frontal view of the chest was obtained. Comparison: Prior chest x-ray of 05/06/19. Bichamber pacemaker is noted. Lungs are clear with no acute parenchymal change. Bony structures are grossly intact. Impression: 1. Nothing acute is seen on frontal chest x-ray. Diagnostic code #2 This report was dictated in MDT
== END 2020-04-14 21:24 | disposition home or self-care (01) ==
LOC: JD.ED 18:32
DX: N39.0 Urinary tract infection, site not specified (principal); I48.0 Paroxysmal atrial fibrillation; E78.00 Pure hypercholesterolemia, unspecified; I12.9 Hypertensive chronic kidney disease with stage 1 through stage 4 chronic kidney disease, or unspecified chronic kidney disease; N18.9 Chronic kidney disease, unspecified; Z79.82 Long term (current) use of aspirin; Z79.899 Other long term (current) drug therapy
CPT/HCPCS: 36415; 71045; 80053; 81001; 83605; 85025; 87040; 87086; 99284; A9270; 99283

== ENCOUNTER 2020-08-07 16:56 | Emergency (ER) | payer MEDICARE, BC ==
[2020-08-07 17:24] VITALS: BP 134/80; PULSE 100
[2020-08-07] MEDS ORDERED: Sodium Chloride 0.9% 10 ML Syringe FLUSH PRN (17:31)
[2020-08-07] MEDS ORDERED: Ondansetron 4 MG/2 ML SDV IVPUSH ONE (17:36)
--- NOTE | 2020-08-07 17:39 | EDM.PDOC ---
ED HPI GENERAL MEDICAL PROBLEM - General Chief Complaint: General Stated Complaint: CHILLS/SHAKING/NAUSEA Time Seen by Provider: 08/07/20 17:21 Source of Information: Reports: Patient History Limitations: Reports: No Limitations - History of Present Illness INITIAL COMMENTS - FREE TEXT/NARRATIVE: The patient presents for not feeling well after dialysis. He was here this morning for dialysis and everything was fine. He went home feeling good. He got lightheaded and has nausea. He also has some shortness of breath. He denies fever, chills, and cough. He has no chest pain. He has no dysuria. He still makes urine. He has a history of UTIs. He has no abdominal pain, diarrhea or vomiting. Onset: Gradual Duration: Hour(s): Severity: Moderate Improves with: Reports: None Worsens with: Reports: None Associated Symptoms: Reports: Nausea/Vomiting, Shortness of Breath. Denies: Chest Pain, Cough, Fever/Chills, Headaches - Related Data Allergies Allergy/AdvReac Type Severity Reaction Status Date / Time No Known Allergies Allergy Verified 08/07/20 17:24 Home Meds: Home Meds Aspirin 81 mg PO DAILY 09/30/15 [History] Metoprolol Succinate [Toprol XL] 50 mg PO BEDTIME 09/30/15 [History] Tamsulosin [Flomax] 0.4 mg PO BEDTIME 09/30/15 [History] Dutasteride [Avodart] 0.5 mg PO DAILY 05/06/19 [History] Furosemide 20 mg PO DAILY 05/06/19 [History] Sodium Bicarbonate 650 mg PO DAILY 05/06/19 [History] allopurinoL [Zyloprim] 200 mg PO DAILY 05/06/19 [History] levoFLOXacin [Levaquin] 250 mg PO ASDIRECTED #3 tab 04/14/20 [Rx] Past Medical History HEENT History: Reports: Hard of Hearing, Impaired Vision Other HEENT History: wears glasses Cardiovascular History: Reports: Afib, High Cholesterol, Hypertension Other Cardiovascular History: sick sinus syndrome Genitourinary History: Reports: BPH, Chronic Renal Insuffiency, UTI, Recurrent Other Genitourinary History: enlarged prostate Musculoskeletal History: Reports: Arthritis, Gout Oncologic (Cancer) History: Reports: Bladder - Past Surgical History HEENT Surgical History: Reports: Cataract Surgery Cardiovascular Surgical History: Reports: Pacer GI Surgical History: Reports: Colonoscopy Male Surgical History: Reports: TURBT-Transurethral Resection of Bladder Tumor Social & Family History - Family History Family Medical History: No Pertinent Family History - Tobacco Use Tobacco Use Status *Q: Never Tobacco User Second Hand Smoke Exposure: No - Caffeine Use Caffeine Use: Reports: Coffee - Recreational Drug Use Recreational Drug Use: No - Living Situation & Occupation Living situation: Reports: , with Spouse Occupation: Retired ED ROS GENERAL - Review of Systems Review Of Systems: See Below Constitutional: Reports: Malaise, Weakness. Denies: Fever, Chills HEENT: Reports: No Symptoms Respiratory: Reports: Shortness of Breath. Denies: Cough Cardiovascular: Reports: No Symptoms Endocrine: Reports: No Symptoms GI/Abdominal: Reports: Nausea. Denies: Abdominal Pain, Diarrhea, Vomiting : Reports: No Symptoms Musculoskeletal: Reports: No Symptoms Skin: Reports: No Symptoms Neurological: Reports: No Symptoms ED EXAM, GENERAL - Physical Exam Exam: See Below Exam Limited By: No Limitations General Appearance: Alert, No Apparent Distress Ears: Normal External Exam Nose: Normal Inspection Head: Atraumatic, Normocephalic Neck: Normal Inspection Respiratory/Chest: No Respiratory Distress, Lungs Clear, Normal Breath Sounds Cardiovascular: Regular Rate, Rhythm, No Edema, No Murmur GI/Abdominal: Soft, Non-Tender, No Organomegaly, No Mass Back Exam: Normal Inspection Extremities: Normal Inspection Course - Vital Signs Last Recorded V/S: Last Vital Signs Temp 99.0 F 08/07/20 17:21 Pulse 100 08/07/20 17:21 Resp 14 08/07/20 17:21 BP 134/80 08/07/20 17:21 Pulse Ox 90 L 08/07/20 17:21 - Orders/Labs/Meds Orders: Active Orders 24 hr Category Date Time Status Peripheral IV Care [RC] . DIRECTED Care 08/07/20 17:32 Active COVID-19/FLU A+B [MOLEC] Stat Lab 08/07/20 18:40 Received CULTURE BLOOD [BC] Stat Lab 08/07/20 17:50 Received CULTURE BLOOD [BC] Stat Lab 08/07/20 18:00 Received Sodium Chloride 0.9% [Normal Saline] 1,000 ml Med 08/07/20 18:45 Active IV ASDIRECTED Sodium Chloride 0.9% [Saline Flush] Med 08/07/20 17:31 Active 10 ml FLUSH ASDIRECTED PRN cefTRIAXone [Rocephin] 2 gm Med 08/07/20 18:44 Active Sodium Chloride 0.9% [Normal Saline] 100 ml IV ONETIME Blood Culture x2 Reflex Set [OM.PC] Stat Ot 08/07/20 17:31 Ordered Peripheral IV Insertion Adult [OM.PC] Stat Oth 08/07/20 17:31 Ordered Medication Orders Sodium Chloride (Normal Saline) 1,000 mls @ 150 mls/hr IV ASDIRECTED DOUGLAS Last Admin: 08/07/20 18:52 Dose: 150 mls/hr Documented by: HOWARD Sodium Chloride (Saline Flush) 10 ml FLUSH ASDIRECTED PRN PRN Reason: Keep Vein Open Last Admin: 08/07/20 17:58 Dose: 10 ml Documented by: HOWARD Labs: Laboratory Tests 08/07/20 08/07/20 08/07/20 Range/Units 17:50 17:50 17:50 WBC 13.90 H (4.23-9.07) K/mm3 RBC 3.53 L (4.63-6.08) M/mm3 Hgb 11.5 L (13.7-17.5) gm/dl Hct 36.6 L (40.1-51.0) % MCV 103.7 H (79.0-92.2) fl MCH 32.6 H (25.7-32.2) pg MCHC 31.4 L (32.2-35.5) g/dl RDW Std Deviation 52.0 H (35.1-43.9) fL Plt Count 203 (163-337) K/mm3 MPV 9.8 (9.4-12.3) fl Neut % (Auto) 88.1 H (34.0-67.9) % Lymph % (Auto) 4.0 L (21.8-53.1) % [place] % (Auto) 7.3 (5.3-12.2) % Eos % (Auto) 0.2 L (0.8-7.0) Baso % (Auto) 0.1 (0.1-1.2) % Neut # (Auto) 12.24 H (1.78-5.38) K/mm3 Lymph # (Auto) 0.56 L (1.32-3.57) K/mm3 [place] # (Auto) 1.01 H (0.30-0.82) K/mm3 Eos # (Auto) 0.03 L (0.04-0.54) K/mm3 Baso # (Auto) 0.02 (0.01-0.08) K/mm3 Manual Slide Review Abnormal smear Sodium 135 L (136-145) mEq/L Potassium 4.0 (3.5-5.1) mEq/L Chloride 96 L (98-107) mEq/L Carbon Dioxide 29 (21-32) mEq/L Anion Gap 14.0 (5-15) BUN 28 H (7-18) mg/dL Creatinine 3.8 H (0.7-1.3) mg/dL Est Cr Clr Drug Dosing 16.45 mL/min Estimated GFR (MDRD) 15 (>60) mL/min BUN/Creatinine Ratio 7.4 L (14-18) Glucose 109 (83-115) mg/dL Lactic Acid 2.1 H* (0.4-2.0) mmol/L Calcium 9.1 (8.5-10.1) mg/dL Total Bilirubin 0.4 (0.2-1.0) mg/dL AST 20 (15-37) U/L ALT 24 (16-63) U/L Alkaline Phosphatase 79 (46-116) U/L Troponin I 0.041 (0.00-0.056) ng/mL Total Protein 7.3 (6.4-8.2) g/dl Albumin 3.6 (3.4-5.0) g/dl Globulin 3.7 gm/dL Albumin/Globulin Ratio 1.0 (1-2) Urine Color (Yellow) Urine Appearance (Clear) Urine pH (5.0-8.0) Ur Specific [place] (1.005-1.030) Urine Protein (Negative) Urine Glucose (UA) (Negative) Urine Ketones (Negative) Urine Occult Blood (Negative) Urine Nitrite (Negative) Urine Bilirubin (Negative) Urine Urobilinogen (0.2-1.0) Ur Leukocyte Esterase (Negative) Urine RBC (0-5) /hpf Urine WBC (0-5) /hpf Ur Squamous Epith Cells (0-5) /hpf Ur Renal Epithelial Cell (0-5) /hpf Urine Bacteria (FEW) /hpf Urine Mucus (FEW) /hpf 08/07/20 Range/Units 18:00 WBC (4.23-9.07) K/mm3 RBC (4.63-6.08) M/mm3 Hgb (13.7-17.5) gm/dl Hct (40.1-51.0) % MCV (79.0-92.2) fl MCH (25.7-32.2) pg MCHC (32.2-35.5) g/dl RDW Std Deviation (35.1-43.9) fL Plt Count (163-337) K/mm3 MPV (9.4-12.3) fl Neut % (Auto) (34.0-67.9) % Lymph % (Auto) (21.8-53.1) % [place] % (Auto) (5.3-12.2) % Eos % (Auto) (0.8-7.0) Baso % (Auto) (0.1-1.2) % Neut # (Auto) (1.78-5.38) K/mm3 Lymph # (Auto) (1.32-3.57) K/mm3 [place] # (Auto) (0.30-0.82) K/mm3 Eos # (Auto) (0.04-0.54) K/mm3 Baso # (Auto) (0.01-0.08) K/mm3 Manual Slide Review Sodium (136-145) mEq/L Potassium (3.5-5.1) mEq/L Chloride (98-107) mEq/L Carbon Dioxide (21-32) mEq/L Anion Gap (5-15) BUN (7-18) mg/dL Creatinine (0.7-1.3) mg/dL Est Cr Clr Drug Dosing mL/min Estimated GFR (MDRD) (>60) mL/min BUN/Creatinine Ratio (14-18) Glucose (83-115) mg/dL Lactic Acid (0.4-2.0) mmol/L Calcium (8.5-10.1) mg/dL Total Bilirubin (0.2-1.0) mg/dL AST (15-37) U/L ALT (16-63) U/L Alkaline Phosphatase (46-116) U/L Troponin I (0.00-0.056) ng/mL Total Protein (6.4-8.2) g/dl Albumin (3.4-5.0) g/dl Globulin gm/dL Albumin/Globulin Ratio (1-2) Urine Color Yellow (Yellow) Urine Appearance Slt cloudy H (Clear) Urine pH 8.5 H (5.0-8.0) Ur Specific [place] 1.020 (1.005-1.030) Urine Protein 2+ H (Negative) Urine Glucose (UA) Negative (Negative) Urine Ketones Negative (Negative) Urine Occult Blood 2+ H (Negative) Urine Nitrite Negative (Negative) Urine Bilirubin Negative (Negative) Urine Urobilinogen 0.2 (0.2-1.0) Ur Leukocyte Esterase Negative (Negative) Urine RBC 40-50 H (0-5) /hpf Urine WBC 0-5 (0-5) /hpf Ur Squamous Epith Cells 0-5 (0-5) /hpf Ur Renal Epithelial Cell 0-5 (0-5) /hpf Urine Bacteria Few (FEW) /hpf Urine Mucus Not seen (FEW) /hpf Meds: Medications Generic Name Dose Route Start Last Admin Trade Name Freq PRN Reason Stop Dose Admin Sodium Chloride 1,000 mls @ 150 mls/hr 08/07/20 18:45 08/07/20 18:52 Normal Saline IV 150 mls/hr ASDIRECTED DOUGLAS Administration Sodium Chloride 10 ml 08/07/20 17:31 08/07/20 17:58 Saline Flush FLUSH 10 ml ASDIRECTED PRN Administration Keep Vein Open Discontinued Medications Generic Name Dose Route Start Last Admin Trade Name Freq PRN Reason Stop Dose Admin Ceftriaxone Sodium 2 gm/ 100 mls @ 200 mls/hr 08/07/20 18:44 08/07/20 18:53 Sodium Chloride IV 08/07/20 19:13 200 mls/hr ONETIME ONE Administration Ondansetron HCl 4 mg 08/07/20 17:36 08/07/20 17:55 Zofran IVPUSH 08/07/20 17:37 4 mg ONETIME ONE Administration - Re-Assessments/Exams Free Text/Narrative Re-Assessment/Exam: 08/07/20 19:20 I ordered an IV saline lock, CXR, COVID 19 test, UA, blood cultures, and lactic acid. His CXR looks good. His WBC was elevated at 13.9. His Hgb was a little low at 11.5. His Na was 135. His creatinine is elevated at 3.8. His GFR is low at 15. His lactic acid is elevated at 2.1. His troponin is negative. He rules in for severe sepsis. I ordered IV NS at 150ml/hr and rocephin 2 grams IV. His UA shows no UTI. He could still have bacteremia. I feel he needs to be admitted for IV antibiotics pending the results of the blood cultures. He is a dialysis patient so he needs to be admitted in [place]. We also have no beds here. I am waiting for the COVID results before I call [facility] in [place]. 08/07/20 19:38 He is COVID negative. 08/07/20 19:46 I called [facility] in [place] and [facility] in [place] and both hospitals are full. I called [facility] in [place] and talked with Dr Pickard with the hospitalist service and he accepted the patient. 08/07/20 19:51. Dr Pickard requested a culture off of the dialysis cath but no one here was comfortable doing it. The patient will go by [facility]. Departure - Departure Time of Disposition: 20:10 Disposition: DC/Tfer to Acute Hospital 02 Condition: Serious Clinical Impression: Chronic kidney disease with end stage renal failure on dialysis, Severe sepsis - Discharge Information Referrals: Jasper Haines MD [Primary Care Provider] - Forms: ED Department Discharge Sepsis Event Note (ED) - Evaluation Sepsis Screening Result: No Definite Risk - Focused Exam Vital Signs: Vital Signs Temp Pulse Resp BP Pulse Ox 08/07/20 17:21 99.0 F 100 14 134/80 90 L - My Orders Last 24 Hours: My Active Orders 08/07/20 17:31 Sodium Chloride 0.9% [Saline Flush] 10 ml FLUSH ASDIRECTED PRN Blood Culture x2 Reflex Set [OM.PC] Stat Peripheral IV Insertion Adult [OM.PC] Stat 08/07/20 17:32 Peripheral IV Care [RC] . DIRECTED 08/07/20 17:50 CULTURE BLOOD [BC] Stat 08/07/20 18:00 CULTURE BLOOD [BC] Stat 08/07/20 18:40 COVID-19/FLU A+B [MOLEC] Stat 08/07/20 18:44 cefTRIAXone [Rocephin] 2 gm Sodium Chloride 0.9% [Normal Saline] 100 ml IV ONETIME 08/07/20 18:45 Sodium Chloride 0.9% [Normal Saline] 1,000 ml IV ASDIRECTED - Assessment/Plan Last 24 Hours: My Active Orders 08/07/20 17:31 Sodium Chloride 0.9% [Saline Flush] 10 ml FLUSH ASDIRECTED PRN Blood Culture x2 Reflex Set [OM.PC] Stat Peripheral IV Insertion Adult [OM.PC] Stat 08/07/20 17:32 Peripheral IV Care [RC] . DIRECTED 08/07/20 17:50 CULTURE BLOOD [BC] Stat 08/07/20 18:00 CULTURE BLOOD [BC] Stat 08/07/20 18:40 COVID-19/FLU A+B [MOLEC] Stat 08/07/20 18:44 cefTRIAXone [Rocephin] 2 gm Sodium Chloride 0.9% [Normal Saline] 100 ml IV ONETIME 08/07/20 18:45 Sodium Chloride 0.9% [Normal Saline] 1,000 ml IV ASDIRECTED
--- NOTE | 2020-08-07 18:31 | CR ---
Chest: Portable view of the chest was obtained. Comparison: Prior chest x-ray of 04/14/20. Findings: Heart size and mediastinum: Heart size and mediastinum are normal. No discrete mediastinal mass is seen. There is a right-sided infusion catheter being seen as an interval change from prior study which appears within normal limits by radiographic technique. Bichamber pacemaker is noted. Lungs: Lungs are clear with no acute parenchymal change. Osseous structures: No discrete bony abnormality is appreciated. Impression: 1. Findings as noted above. 2. Nothing acute is appreciated. Diagnostic code #2
[2020-08-07] MEDS ORDERED: cefTRIAXone 2 GM in Sodium Chloride 0.9% 100 ML IV ONE (18:44)
[2020-08-07] MEDS ORDERED: Sodium Chloride 0.9% 1,000 ML IV SCH (18:45)
[2020-08-07 19:24] LABS: CORONAVIRUS COVID-19 NAA NEGATIVE (NEGATIVE)
== END 2020-08-07 20:39 ==
LOC: JD.ED 16:56
DX: A41.9 Sepsis, unspecified organism (principal); N18.6 End stage renal disease; R65.20 Severe sepsis without septic shock; I12.0 Hypertensive chronic kidney disease with stage 5 chronic kidney disease or end stage renal disease; D72.829 Elevated white blood cell count, unspecified; R74.8 Abnormal levels of other serum enzymes; I48.91 Unspecified atrial fibrillation; N40.0 Benign prostatic hyperplasia without lower urinary tract symptoms; M10.9 Gout, unspecified; Z99.2 Dependence on renal dialysis; Z79.82 Long term (current) use of aspirin; Z79.899 Other long term (current) drug therapy; Z20.828 Contact with and (suspected) exposure to other viral communicable diseases
CPT/HCPCS: 0240U; 36415; 71045; 80053; 81001; 83605; 84484; 85025; 87040; 87077; 87186; 96365; 96375; 99285; J0696; J2405; J7030; J7050

== ENCOUNTER 2020-09-12 21:41 | Emergency (ER) | payer MEDICARE, BC ==
[2020-09-12 22:02] VITALS: BP 132/74; PULSE 86
[2020-09-12] MEDS ORDERED: Sodium Chloride 0.9% 10 ML Syringe FLUSH PRN (22:15)
--- NOTE | 2020-09-12 22:21 | EDM.PDOC ---
ED HPI GENERAL MEDICAL PROBLEM - General Chief Complaint: Fever Stated Complaint: FEVER/CHILLS/JUST GOT OVER A STAFF INFECTION Time Seen by Provider: 09/12/20 22:16 Source of Information: Reports: Patient, Family (spouse) History Limitations: Reports: No Limitations - History of Present Illness INITIAL COMMENTS - FREE TEXT/NARRATIVE: 85-year-old male who looks younger than his stated age presents to the ED complaining of some mild chills last night before going to bed and then recurrent chills this afternoon and again this evening. Patient is leery as he had a staph aureus sepsis with all 4 blood cultures growing out staph coccus aureus infection August 07. He was sent to [facility] in [place] for treatment due to no beds being available in [place]. He is a hemodialysis patient for the last 1 year. He is not sure why he has renal failure. He does not have diabetes. He states his appetite has been fair today. No documented fever. He is still making about 2 tablespoons of urine daily. Has not noticed a foul smell to the urine. Tends to dribble urine at nighttime. Known to have a very large prostate. Previous history of urinary bladder cancer 5 years ago treated with fulguration and cauterization and I believe BCG treatments. He has not been identified to have any recurrence. When he was in [place] the source of the infection was felt to be illnesses catheter right upper anterior chest or Broviac catheter had been used only sparingly. Previous dialysis catheter in that area had plugged up and was not able to be opened. A second catheter was placed was used only the one time. Otherwise they have been using his AV fistula right arm. And it was removed. He has dialysis is being done Tuesdays and Saturdays through an AV fistula in the medial distal right arm. Last dialysis was yesterday. No past history of COVID-19 illness or exposure. Denies cough or sputum production. No diarrhea no abdominal pain no sore throat. Onset: Gradual Onset Date: 09/11/20 (Appreciated some mild chills before going to bed last night. Recurrence of chills this afternoon and again this evening.) Duration: Hour(s):, Intermittent, Waxing/Waning Location: Reports: Generalized (Generalized chills with need to cover up with more blankets.) Quality: Reports: Other Severity: Moderate (Recurrent chills with no defined fever) Improves with: Reports: None Worsens with: Reports: None Context: Reports: Other (He is at risk as he is immunocompromised). Denies: Activity, Exercise, Lifting, Sick Contact, Trauma Associated Symptoms: Reports: Fever/Chills, Malaise, Other (Leaking some urine or dribbling.). Denies: Confusion ( due to being a hemodialysis patient.), Chest Pain, Cough, cough w sputum, Diaphoresis, Headaches, Loss of Appetite, Nausea/Vomiting (Chills but no documented fever), Rash, Seizure, Shortness of Breath, Syncope, Weakness Treatments [employer] WR[employer]: Reports: Other (see below) (Only his regular medications.) - Related Data Allergies Allergy/AdvReac Type Severity Reaction Status Date / Time No Known Allergies Allergy Verified 09/12/20 22:02 Home Meds: Home Meds Aspirin 81 mg PO DAILY 09/30/15 [History] Metoprolol Succinate [Toprol XL] 50 mg PO BEDTIME 09/30/15 [History] Dutasteride [Avodart] 0.5 mg PO DAILY 05/06/19 [History] Furosemide 20 mg PO DAILY 05/06/19 [History] allopurinoL [Zyloprim] 200 mg PO DAILY 05/06/19 [History] Cefdinir [Omnicef] 300 mg PO BID #16 cap 09/13/20 [Rx] Past Medical History HEENT History: Reports: Hard of Hearing, Impaired Vision Other HEENT History: wears glasses Cardiovascular History: Reports: Afib, High Cholesterol, Hypertension Other Cardiovascular History: sick sinus syndrome Genitourinary History: Reports: BPH, Chronic Renal Insuffiency, UTI, Recurrent Other Genitourinary History: enlarged prostate--he states he dribbles urine often during the night. He believes he is down to passing about 2 tablespoons of urine only per day. Has been a hemodialysis patient for 1 year. Musculoskeletal History: Reports: Arthritis, Gout Oncologic (Cancer) History: Reports: Bladder - Past Surgical History HEENT Surgical History: Reports: Cataract Surgery Cardiovascular Surgical History: Reports: Pacer GI Surgical History: Reports: Colonoscopy Male Surgical History: Reports: TURBT-Transurethral Resection of Bladder Tumor Social & Family History - Family History Family Medical History: No Pertinent Family History - Tobacco Use Tobacco Use Status *Q: Former Tobacco User Used Tobacco, but Quit: Yes Month/Year Tobacco Last Used: 1979 - Caffeine Use Caffeine Use: Reports: Coffee - Recreational Drug Use Recreational Drug Use: No - Living Situation & Occupation Living situation: Reports: , with Spouse Occupation: Retired ED ROS GENERAL - Review of Systems Review Of Systems: See Below Constitutional: Reports: Chills, Malaise, Weakness, Fatigue. Denies: Fever, Night Sweats, Diaphoresis, Decreased Appetite, Weight Loss HEENT: Reports: Glasses (Glasses for reading.) Respiratory: Denies: Shortness of Breath, Wheezing, Pleuritic Chest Pain, Cough, Sputum Cardiovascular: Reports: Blood Pressure Problem (Controlled with medication), Dyspnea on Exertion, Edema (Both lower extremities chronically.). Denies: Chest Pain, Claudication, Lightheadedness, Orthopnea, Palpitations Endocrine: Reports: Fatigue GI/Abdominal: Reports: No Symptoms. Denies: Diarrhea, Decreased Appetite, Nausea, Vomiting : Reports: Urgency, Other (States he leaks urine during the night. He believes he is only passing about 2 tablespoons of urine per day. He is a hemodialysis patient.) Musculoskeletal: Reports: No Symptoms Skin: Reports: No Symptoms Neurological: Reports: No Symptoms Psychiatric: Reports: No Symptoms Hematologic/Lymphatic: Reports: No Symptoms Immunologic: Reports: No Symptoms ED EXAM, SEPSIS - Physical Exam Exam: See Below Exam Limited By: No Limitations General Appearance: Alert, WD/WN, No Apparent Distress, Other (He is afebrile on exam temperature is 36.8 heart rate 86 in sinus respiratory of 17 with O2 sats 94 to 95% room air BP 1 3274) Eye Exam: Bilateral Eye: Normal Inspection (Patient does have very mild blepharal pallor. No scleral icterus.), PERRL Ears: Normal TMs Throat/Mouth: Normal Inspection, Normal Lips, Normal Oropharynx, Other Head: Atraumatic (Tongue is minimally dry.), Normocephalic Neck: Normal Inspection, Supple, Non-Tender, Full Range of Motion. No: Lymphadenopathy (L), Lymphadenopathy (R) Respiratory/Chest: No Respiratory Distress, Lungs Clear, Normal Breath Sounds, No Accessory Muscle Use, Other (Wound right upper anterior chest at previous dialysis catheter placement site is healed well. Pacemaker is present left upper anterior chest quite lateral in the anterior axillary line.) Cardiovascular: Regular Rate, Rhythm, No Gallop, No Murmur, No Rub Peripheral Pulses: 1+: Posterior Tibial (L) (Is difficult to palpate his at the posterior tibials due to), Posterior Tibial (R), Dorsalis Pedis (L), Dorsalis Pedis (R), 2+: Carotid (L), Carotid (R) GI/Abdominal Exam: Normal Bowel Sounds ( bilateral dependent edema in the lower extremities up to the tibial tuberosities.), Soft, Non-Tender, No Organomegaly, No Mass, Pelvis Stable, Other. No: Guarding, Rigid (Jose obese. No masses identified), Rebound, Tender Back: Normal Inspection, Full Range of Motion. No: CVA Tenderness (L), CVA Tenderness (R) Extremities: Normal Inspection, Normal Range of Motion, Non-Tender, Pedal Edema (2-3+ pitting edema up to the tibial tuberosities bilaterally. Slightly worse on the right as compared to the left) Neurological: Alert, Oriented, CN II-XII Intact, Normal Cognition Psychiatric: Normal Affect, Normal Mood Skin: Warm, Dry, Intact, Normal Color, No Rash #1 Interpretation EKG Date: 09/12/20 Time: 23:00 Rhythm: NSR Rate (Beats/Min): 77 (Occasional PVCs) [place]: LAD-Left [place] Deviation (Minimal left axis deviation of -6 degrees.) P-Wave: Enlarged QRS: Other (Consider left atrial hypertrophy Q wave V1 and V2 consider old anteroseptal myocardial infarction. Decreased voltage throughout the limb leads.) QT: Prolonged (Mildly prolonged) EKG Interpretation Comments: Abnormal ECG Course - Vital Signs Last Recorded V/S: Last Vital Signs Temp 36.8 C 09/12/20 21:59 Pulse 86 09/12/20 21:59 Resp 17 09/12/20 21:59 BP 132/74 09/12/20 21:59 Pulse Ox 94 L 09/12/20 21:59 - Orders/Labs/Meds Orders: Active Orders 24 hr Category Date Time Status Chest 1V Frontal [CR] Stat Exams 09/12/20 22:13 Taken CULTURE BLOOD [BC] Stat Lab 09/12/20 22:40 Received CULTURE BLOOD [BC] Stat Lab 09/12/20 22:52 Received Blood Culture x2 Reflex Set [OM.PC] Stat Oth 09/12/20 22:14 Ordered Peripheral IV Insertion Adult [OM.PC] Stat Ot 09/12/20 22:14 Ordered Labs: Laboratory Tests 09/12/20 09/12/20 09/12/20 Range/Units 22:40 22:40 22:40 WBC 8.71 (4.23-9.07) K/mm3 RBC 3.40 L (4.63-6.08) M/mm3 Hgb 10.8 L (13.7-17.5) gm/dl Hct 34.6 L (40.1-51.0) % MCV 101.8 H (79.0-92.2) fl MCH 31.8 (25.7-32.2) pg MCHC 31.2 L (32.2-35.5) g/dl RDW Std Deviation 49.7 H (35.1-43.9) fL Plt Count 147 L (163-337) K/mm3 MPV 9.9 (9.4-12.3) fl Neutrophils % (Manual) 84 H (40-60) % Band Neutrophils % 0 (0-10) % Lymphocytes % (Manual) 13 L (20-40) % Atypical Lymphs % 0 % Monocytes % (Manual) 1 L (2-10) % Eosinophils % (Manual) 1 (0.8-7.0) % Basophils % (Manual) 1 (0.2-1.2) Platelet Estimate Adequate Anisocytosis 1+ slight Macrocytosis 1+ slight ESR (0-15) mm/hr PT 10.7 (9.7-12.0) SECONDS INR 1.00 APTT 28.3 (21.7-31.4) SECONDS Sodium 138 (136-145) mEq/L Potassium 4.8 (3.5-5.1) mEq/L Chloride 101 (98-107) mEq/L Carbon Dioxide 27 (21-32) mEq/L Anion Gap 14.8 (5-15) BUN 64 H D (7-18) mg/dL Creatinine 5.3 H D (0.7-1.3) mg/dL Est Cr Clr Drug Dosing 11.59 mL/min Estimated GFR (MDRD) 10 (>60) mL/min BUN/Creatinine Ratio 12.1 L (14-18) Glucose 102 (83-115) mg/dL Lactic Acid (0.4-2.0) mmol/L Uric Acid (3.5-7.2) mg/dL Calcium 8.6 (8.5-10.1) mg/dL Magnesium 1.7 L (1.8-2.4) mg/dl Total Bilirubin 0.4 (0.2-1.0) mg/dL AST 31 (15-37) U/L ALT 24 (16-63) U/L Alkaline Phosphatase 86 (46-116) U/L Troponin I 0.036 (0.00-0.056) ng/mL C-Reactive Protein 6.6 H* (<1.0) mg/dL NT-Pro-B Natriuret Pep (0-450) pg/mL Total Protein 6.4 (6.4-8.2) g/dl Albumin 3.3 L (3.4-5.0) g/dl Globulin 3.1 gm/dL Albumin/Globulin Ratio 1.1 (1-2) Urine Color (Yellow) Urine Appearance (Clear) Urine pH (5.0-8.0) Ur Specific Warner (1.005-1.030) Urine Protein (Negative) Urine Glucose (UA) (Negative) Urine Ketones (Negative) Urine Occult Blood (Negative) Urine Nitrite (Negative) Urine Bilirubin (Negative) Urine Urobilinogen (0.2-1.0) Ur Leukocyte Esterase (Negative) U Hyaline Cast (Auto) (0-5) /lpf Urine RBC (0-5) /hpf Urine WBC (0-5) /hpf Ur Squamous Epith Cells (0-5) /hpf Urine Bacteria (FEW) /hpf Urine Mucus (FEW) /hpf SARS-CoV-2 RNA (NATHANIEL) (NEGATIVE) 09/12/20 09/12/20 09/12/20 Range/Units 22:40 22:40 22:40 WBC (4.23-9.07) K/mm3 RBC (4.63-6.08) M/mm3 Hgb (13.7-17.5) gm/dl Hct (40.1-51.0) % MCV (79.0-92.2) fl MCH (25.7-32.2) pg MCHC (32.2-35.5) g/dl RDW Std Deviation (35.1-43.9) fL Plt Count (163-337) K/mm3 MPV (9.4-12.3) fl Neutrophils % (Manual) (40-60) % Band Neutrophils % (0-10) % Lymphocytes % (Manual) (20-40) % Atypical Lymphs % % Monocytes % (Manual) (2-10) % Eosinophils % (Manual) (0.8-7.0) % Basophils % (Manual) (0.2-1.2) Platelet Estimate Anisocytosis Macrocytosis ESR 40 H (0-15) mm/hr PT (9.7-12.0) SECONDS INR APTT (21.7-31.4) SECONDS Sodium (136-145) mEq/L Potassium (3.5-5.1) mEq/L Chloride (98-107) mEq/L Carbon Dioxide (21-32) mEq/L Anion Gap (5-15) BUN (7-18) mg/dL Creatinine (0.7-1.3) mg/dL Est Cr Clr Drug Dosing mL/min Estimated GFR (MDRD) (>60) mL/min BUN/Creatinine Ratio (14-18) Glucose (83-115) mg/dL Lactic Acid 0.9 (0.4-2.0) mmol/L Uric Acid (3.5-7.2) mg/dL Calcium (8.5-10.1) mg/dL Magnesium (1.8-2.4) mg/dl Total Bilirubin (0.2-1.0) mg/dL AST (15-37) U/L ALT (16-63) U/L Alkaline Phosphatase (46-116) U/L Troponin I (0.00-0.056) ng/mL C-Reactive Protein (<1.0) mg/dL NT-Pro-B Natriuret Pep 1965 H (0-450) pg/mL Total Protein (6.4-8.2) g/dl Albumin (3.4-5.0) g/dl Globulin gm/dL Albumin/Globulin Ratio (1-2) Urine Color (Yellow) Urine Appearance (Clear) Urine pH (5.0-8.0) Ur Specific Warner (1.005-1.030) Urine Protein (Negative) Urine Glucose (UA) (Negative) Urine Ketones (Negative) Urine Occult Blood (Negative) Urine Nitrite (Negative) Urine Bilirubin (Negative) Urine Urobilinogen (0.2-1.0) Ur Leukocyte Esterase (Negative) U Hyaline Cast (Auto) (0-5) /lpf Urine RBC (0-5) /hpf Urine WBC (0-5) /hpf Ur Squamous Epith Cells (0-5) /hpf Urine Bacteria (FEW) /hpf Urine Mucus (FEW) /hpf SARS-CoV-2 RNA (NATHANIEL) (NEGATIVE) 09/12/20 09/12/20 09/12/20 Range/Units 22:40 22:45 23:47 WBC (4.23-9.07) K/mm3 RBC (4.63-6.08) M/mm3 Hgb (13.7-17.5) gm/dl Hct (40.1-51.0) % MCV (79.0-92.2) fl MCH (25.7-32.2) pg MCHC (32.2-35.5) g/dl RDW Std Deviation (35.1-43.9) fL Plt Count (163-337) K/mm3 MPV (9.4-12.3) fl Neutrophils % (Manual) (40-60) % Band Neutrophils % (0-10) % Lymphocytes % (Manual) (20-40) % Atypical Lymphs % % Monocytes % (Manual) (2-10) % Eosinophils % (Manual) (0.8-7.0) % Basophils % (Manual) (0.2-1.2) Platelet Estimate Anisocytosis Macrocytosis ESR (0-15) mm/hr PT (9.7-12.0) SECONDS INR APTT (21.7-31.4) SECONDS Sodium (136-145) mEq/L Potassium (3.5-5.1) mEq/L Chloride (98-107) mEq/L Carbon Dioxide (21-32) mEq/L Anion Gap (5-15) BUN (7-18) mg/dL Creatinine (0.7-1.3) mg/dL Est Cr Clr Drug Dosing mL/min Estimated GFR (MDRD) (>60) mL/min BUN/Creatinine Ratio (14-18) Glucose (83-115) mg/dL Lactic Acid (0.4-2.0) mmol/L Uric Acid 4.6 (3.5-7.2) mg/dL Calcium (8.5-10.1) mg/dL Magnesium (1.8-2.4) mg/dl Total Bilirubin (0.2-1.0) mg/dL AST (15-37) U/L ALT (16-63) U/L Alkaline Phosphatase (46-116) U/L Troponin I (0.00-0.056) ng/mL C-Reactive Protein (<1.0) mg/dL NT-Pro-B Natriuret Pep (0-450) pg/mL Total Protein (6.4-8.2) g/dl Albumin (3.4-5.0) g/dl Globulin gm/dL Albumin/Globulin Ratio (1-2) Urine Color Yellow (Yellow) Urine Appearance Clear (Clear) Urine pH 7.5 (5.0-8.0) Ur Specific [place] 1.020 (1.005-1.030) Urine Protein 2+ H (Negative) Urine Glucose (UA) Negative (Negative) Urine Ketones Negative (Negative) Urine Occult Blood 2+ H (Negative) Urine Nitrite Negative (Negative) Urine Bilirubin Negative (Negative) Urine Urobilinogen 0.2 (0.2-1.0) Ur Leukocyte Esterase Negative (Negative) U Hyaline Cast (Auto) 0-5 (0-5) /lpf Urine RBC 10-20 H (0-5) /hpf Urine WBC Not seen (0-5) /hpf Ur Squamous Epith Cells 0-5 (0-5) /hpf Urine Bacteria Rare (FEW) /hpf Urine Mucus Rare (FEW) /hpf SARS-CoV-2 RNA (NATHANIEL) Negative (NEGATIVE) Meds: Medications Discontinued Medications Generic Name Dose Route Start Last Admin Trade Name Umerq PRN Reason Stop Dose Admin Ceftriaxone Sodium 2 gm/ 100 mls @ 200 mls/hr 09/12/20 23:45 09/12/20 23:57 Sodium Chloride IV 09/13/20 00:14 200 mls/hr ONETIME ONE Administration Sodium Chloride 10 ml 09/12/20 22:15 09/12/20 22:31 Saline Flush FLUSH 10 ml ASDIRECTED PRN Administration Keep Vein Open - Radiology Interpretation Free Text/Narrative:: 85-year-old male presents to the ED with some chills that he first experienced last night before going to bed and then they reoccurred about mid afternoon today and again a little bit before bed tonight. No noted fever. He is a hemodialysis patient for the last 1 year. He is currently using an AV fistula in his right medial distal arm. He was admitted to hospital in [facility] August 07 after he presented to our hospital with sepsis symptoms and was diagnosed with all 4 blood cultures growing out Staph aureus. The source of the infection was felt to be his Broviac catheters or dialysis catheters and they were removed from his right upper anterior chest. He still makes 2 tablespoons of urine per day has not noticed any foul smell but he dribbles urine to good deal during the night. He has a history of previous bladder cancer treated 5 years ago with fulguration and cauterization and I believe BCG treatments. So far he has had no evidence of recurrence on recurrent cystoscopy. He has not sure why he went into renal failure. He is currently receiving dialysis Tuesdays and Saturdays. His AV fistula appears to be normal with no signs of increased warmth or tenderness at recent puncture sites. He denies cough or sputum production benign abdominal exam. Therefore no obvious source of infection is present. He will have a repeat COVID-19 screen although he is not been exposed to it to his knowledge. Chest x-ray septic work-up to be carried out. - Re-Assessments/Exams Free Text/Narrative Re-Assessment/Exam: 09/12/20 23:25 PT is 10.7 with an INR of 1.00 PTT is 28.3. Portable chest x-ray reveals some scar tissue in the inferior portion of the right lung field. Cardiac silhouette upper limits of normal pacemaker left upper anterior chest no pneumothorax no pulmonary infiltrate to suggest pneumonia 09/12/20 23:41 White count is 8.71 with 84% neutrophils however. No bands cells reported hemoglobin is 10.8 with a hematocrit of 34.6. MCV elevated 1-1.8. Platelet count low normal 147,000. The slide shows a few anisocytosis and macrocytosis. Sodium 138 with a potassium of 4.8 chloride 101 with a bicarb of 27 anion gap is 14.8. BUN is 64 with a creatinine of 5.3. Glucose is 102 lactic acid 0.9. Uric acid 4.6 calcium 8.6. Magnesium slightly low at 1.7 liver function normal troponin I less than 0.036 C-reactive protein mildly elevated at 6.6. BNP 1965. Total protein 6.4 with an albumin fraction of 3.3 COVID-19 screen is negative. Patient has passed some urine and it will be sent over for analysis. Since he is not acutely ill I am going to start him on 2 g of Rocephin intravenously with the plan then to send him home. He will then be started on Omnicef 300 mg twice daily for another 8 days. 09/13/20 00:46 Urinalysis obtained by catheterization shows 2+ proteinuria 2+ occult blood leukocyte esterase negative with 10-20 RBCs per high-power field no signs of white blood cells. Patient has completed his 2 g of IV Rocephin. He will be discharged home at this time. We will await the results of his blood cultures. He is going home since he is afebrile low white count and not really sick in any other way. He will return to care if he continues to have any fever chills over the next 48 hours. Departure - Departure Time of Disposition: 00:49 Disposition: Home, Self-Care 01 Condition: Fair Clinical Impression: Chills (without fever), Dialysis patient - Discharge Information *PRESCRIPTION DRUG MONITORING PROGRAM REVIEWED*: Not Applicable *COPY OF PRESCRIPTION DRUG MONITORING REPORT IN PATIENT SAVANAH: Not Applicable Prescriptions: Cefdinir [Omnicef] 300 mg PO BID #16 cap Referrals: Jasper Haines MD [Primary Care Provider] - Forms: ED Department Discharge Additional Instructions: Evaluation in the emergency room tonight in regards to development of some chills last evening and then again this afternoon and tonight before bed. The source of the chills is unclear. No documented fever identified while in the emergency department. History of recent staph aureus bloodstream infection in July of last year which was felt to be coming from right upper anterior chest catheter is being used for dialysis management. These were removed while you were in [place]. At the present time I cannot identify any obvious source of infection to account for chills. However the white blood cell count is normal but does show a left shift suggesting it is fighting off an infection and markers for inflammation called a CRP are mildly elevated as well. The urinalysis came back negative for infection. Decision made to treat you with antibiotics to be on the safe side. You were given a dose of Rocephin 2 g intravenously while in the emergency department. You will need to start an oral antibiotic called Omnicef 300 mg twice daily with the first tablet taken tomorrow after your dialysis treatment for the next 8 days to clear up any staph aureus infection sinus or chest infection. You would need to return to medical care if you continue to have fever and chills over the next 48- 72 hours. Ultras have been done and may shed some light on potential source of an infection. Notified immediately if any of these come back positive. Sepsis Event Note (ED) - Evaluation Sepsis Screening Result: No Definite Risk - Focused Exam Vital Signs: Vital Signs Temp Pulse Resp BP Pulse Ox 09/12/20 21:59 36.8 C 86 17 132/74 94 L - My Orders Last 24 Hours: My Active Orders 09/12/20 22:13 Chest 1V Frontal [CR] Stat 09/12/20 22:14 Blood Culture x2 Reflex Set [OM.PC] Stat Peripheral IV Insertion Adult [OM.PC] Stat 09/12/20 22:40 CULTURE BLOOD [BC] Stat 09/12/20 22:52 CULTURE BLOOD [BC] Stat - Assessment/Plan Last 24 Hours: My Active Orders 09/12/20 22:13 Chest 1V Frontal [CR] Stat 09/12/20 22:14 Blood Culture x2 Reflex Set [OM.PC] Stat Peripheral IV Insertion Adult [OM.PC] Stat 09/12/20 22:40 CULTURE BLOOD [BC] Stat 09/12/20 22:52 CULTURE BLOOD [BC] Stat
[2020-09-12] MEDS ORDERED: cefTRIAXone 2 GM in Sodium Chloride 0.9% 100 ML IV ONE (23:45)
--- NOTE | 2020-09-13 09:40 | CR ---
Chest: Portable view of the chest was obtained. Comparison: Prior chest x-ray of 08/07/20. Heart size and mediastinum are within normal limits. Lungs show no acute parenchymal change. Bichamber pacemaker is noted. Osseous structures show nothing acute. Impression: 1. Pacemaker. 2. Nothing acute is identified. Diagnostic code #2
== END 2020-09-13 01:02 | disposition home or self-care (01) ==
LOC: JD.ED 21:41
DX: R68.83 Chills (without fever) (principal); I48.91 Unspecified atrial fibrillation; N40.0 Benign prostatic hyperplasia without lower urinary tract symptoms; I12.9 Hypertensive chronic kidney disease with stage 1 through stage 4 chronic kidney disease, or unspecified chronic kidney disease; N18.9 Chronic kidney disease, unspecified; Z99.2 Dependence on renal dialysis; Z79.82 Long term (current) use of aspirin; Z79.899 Other long term (current) drug therapy; Z87.891 Personal history of nicotine dependence; Z20.822 Contact with and (suspected) exposure to COVID-19
CPT/HCPCS: 36415; 71045; 80053; 81001; 83605; 83735; 83880; 84484; 84550; 85007; 85027; 85610; 85652; 85730; 86140; 87040; 93005; 96365; 99284; J0696; J7050; U0002; 93010; 99283

== ENCOUNTER 2020-09-15 06:55 | Emergency (ER) | payer MEDICARE, BC ==
[2020-09-15 07:35] VITALS: BP 134/85; PULSE 81
--- NOTE | 2020-09-15 07:57 | EDM.PDOC ---
ED HPI GENERAL MEDICAL PROBLEM - General Chief Complaint: Respiratory Problem Stated Complaint: CHILLS/WEAKNESS/FATIGUE Time Seen by Provider: 09/15/20 07:30 Source of Information: Reports: Patient, Family, RN Notes Reviewed - History of Present Illness INITIAL COMMENTS - FREE TEXT/NARRATIVE: 85 yr old male comes in with concern about generalized weakness, dizziness this morning. Has been have chills off and on the past few days. Was seen here in the ED with similar sx 3 days ago, had full septic workup at that time, see that record for details. He is a dialysis pt, hx of staph sepsis about a month ago. He has not been coughing or short of breath. His covid screen 3 days ago was neg. No abd pain, vomiting or diarrhea. He is supposed to be getting dialysis this AM, Last run 2 days ago. - Related Data Allergies Allergy/AdvReac Type Severity Reaction Status Date / Time No Known Allergies Allergy Verified 09/15/20 07:27 Home Meds: Home Meds Aspirin 81 mg PO DAILY 09/30/15 [History] Metoprolol Succinate [Toprol XL] 50 mg PO BEDTIME 09/30/15 [History] Dutasteride [Avodart] 0.5 mg PO DAILY 05/06/19 [History] allopurinoL [Zyloprim] 200 mg PO DAILY 05/06/19 [History] Cefdinir [Omnicef] 300 mg PO BID #16 cap 09/13/20 [Rx] Simvastatin 5 mg PO DAILY 09/15/20 [History] Past Medical History HEENT History: Reports: Hard of Hearing, Impaired Vision Other HEENT History: wears glasses Cardiovascular History: Reports: Afib, High Cholesterol, Hypertension Other Cardiovascular History: sick sinus syndrome Genitourinary History: Reports: BPH, Chronic Renal Insuffiency, UTI, Recurrent Other Genitourinary History: enlarged prostate--he states he dribbles urine often during the night. He believes he is down to passing about 2 tablespoons of urine only per day. Has been a hemodialysis patient for 1 year. Musculoskeletal History: Reports: Arthritis, Gout Oncologic (Cancer) History: Reports: Bladder - Past Surgical History HEENT Surgical History: Reports: Cataract Surgery Cardiovascular Surgical History: Reports: Pacer GI Surgical History: Reports: Colonoscopy Male Surgical History: Reports: TURBT-Transurethral Resection of Bladder Tumor Social & Family History - Family History Family Medical History: No Pertinent Family History - Tobacco Use Tobacco Use Status *Q: Never Tobacco User - Caffeine Use Caffeine Use: Reports: None - Recreational Drug Use Recreational Drug Use: No - Living Situation & Occupation Living situation: Reports: , with Spouse Occupation: Retired ED ROS GENERAL - Review of Systems Review Of Systems: See Below Constitutional: Reports: Fever, Chills. Denies: Diaphoresis HEENT: Reports: Throat Pain (last evening, gone) Respiratory: Denies: No Symptoms, Shortness of Breath Cardiovascular: Denies: Chest Pain Endocrine: Reports: Fatigue GI/Abdominal: Denies: Abdominal Pain, Diarrhea, Nausea, Vomiting Musculoskeletal: Reports: No Symptoms Skin: Reports: No Symptoms Neurological: Reports: Dizziness, Weakness (generalized) ED EXAM, GENERAL - Physical Exam Exam: See Below General Appearance: Alert, No Apparent Distress Eye Exam: Bilateral Eye: PERRL Throat/Mouth: Normal Inspection Head: Atraumatic. No: Facial Swelling Neck: Supple, Full Range of Motion Respiratory/Chest: No Respiratory Distress, Lungs Clear, Normal Breath Sounds. No: Rales, Rhonchi, Wheezing Cardiovascular: Regular Rate, Rhythm GI/Abdominal: Soft, Non-Tender Extremities: Normal Inspection. No: Pedal Edema, Leg Pain, Increased Warmth, Redness Neurological: Alert, Oriented, No Motor/Sensory Deficits Skin Exam: Warm, Dry, Normal Color, No Rash Course - Vital Signs Last Recorded V/S: Last Vital Signs Temp 99.4 F 09/15/20 11:03 Pulse 81 09/15/20 07:29 Resp 13 09/15/20 07:29 BP 134/85 09/15/20 07:29 Pulse Ox 99 09/15/20 07:29 - Orders/Labs/Meds Orders: Active Orders 24 hr Category Date Time Status CULTURE BLOOD [BC] Stat Lab 09/15/20 08:20 Received CULTURE BLOOD [BC] Stat Lab 09/15/20 08:35 Received CULTURE URINE [RM] Stat Lab 09/15/20 09:31 Received Labs: Laboratory Tests 09/15/20 09/15/20 09/15/20 Range/Units 08:20 08:20 08:20 WBC 9.65 H (4.23-9.07) K/mm3 RBC 3.50 L (4.63-6.08) M/mm3 Hgb 11.1 L (13.7-17.5) gm/dl Hct 35.1 L (40.1-51.0) % MCV 100.3 H (79.0-92.2) fl MCH 31.7 (25.7-32.2) pg MCHC 31.6 L (32.2-35.5) g/dl RDW Std Deviation 48.6 H (35.1-43.9) fL Plt Count 180 (163-337) K/mm3 MPV 9.7 (9.4-12.3) fl Neut % (Auto) 83.6 H (34.0-67.9) % Lymph % (Auto) 5.2 L (21.8-53.1) % Gates % (Auto) 7.8 (5.3-12.2) % Eos % (Auto) 3.1 (0.8-7.0) Baso % (Auto) 0.1 (0.1-1.2) % Neut # (Auto) 8.07 H (1.78-5.38) K/mm3 Lymph # (Auto) 0.50 L (1.32-3.57) K/mm3 Gates # (Auto) 0.75 (0.30-0.82) K/mm3 Eos # (Auto) 0.30 (0.04-0.54) K/mm3 Baso # (Auto) 0.01 (0.01-0.08) K/mm3 Manual Slide Review Abnormal smear Sodium 137 (136-145) mEq/L Potassium 4.3 (3.5-5.1) mEq/L Chloride 99 (98-107) mEq/L Carbon Dioxide 28 (21-32) mEq/L Anion Gap 14.3 (5-15) BUN 57 H (7-18) mg/dL Creatinine 5.3 H (0.7-1.3) mg/dL Est Cr Clr Drug Dosing 12.62 mL/min Estimated GFR (MDRD) 10 (>60) mL/min BUN/Creatinine Ratio 10.8 L (14-18) Glucose 97 (83-115) mg/dL Lactic Acid 0.9 (0.4-2.0) mmol/L Calcium 9.0 (8.5-10.1) mg/dL Ferritin (26-388) ng/ml Total Bilirubin 0.5 (0.2-1.0) mg/dL AST 34 (15-37) U/L ALT 34 (16-63) U/L Alkaline Phosphatase 106 (46-116) U/L Lactate Dehydrogenase 227 (85-227) U/L C-Reactive Protein 12.7 H* (<1.0) mg/dL Total Protein 6.7 (6.4-8.2) g/dl Albumin 3.1 L (3.4-5.0) g/dl Globulin 3.6 gm/dL Albumin/Globulin Ratio 0.9 L (1-2) Urine Color (Yellow) Urine Appearance (Clear) Urine pH (5.0-8.0) Ur Specific [place] (1.005-1.030) Urine Protein (Negative) Urine Glucose (UA) (Negative) Urine Ketones (Negative) Urine Occult Blood (Negative) Urine Nitrite (Negative) Urine Bilirubin (Negative) Urine Urobilinogen (0.2-1.0) Ur Leukocyte Esterase (Negative) Urine RBC (0-5) /hpf Urine WBC (0-5) /hpf Ur Epithelial Cells (0-5) /hpf Urine Bacteria (FEW) /hpf Urine Mucus (FEW) /hpf SARS-CoV-2 RNA (NATHANIEL) (NEGATIVE) 09/15/20 09/15/20 09/15/20 Range/Units 08:20 09:31 09:35 WBC (4.23-9.07) K/mm3 RBC (4.63-6.08) M/mm3 Hgb (13.7-17.5) gm/dl Hct (40.1-51.0) % MCV (79.0-92.2) fl MCH (25.7-32.2) pg MCHC (32.2-35.5) g/dl RDW Std Deviation (35.1-43.9) fL Plt Count (163-337) K/mm3 MPV (9.4-12.3) fl Neut % (Auto) (34.0-67.9) % Lymph % (Auto) (21.8-53.1) % Gates % (Auto) (5.3-12.2) % Eos % (Auto) (0.8-7.0) Baso % (Auto) (0.1-1.2) % Neut # (Auto) (1.78-5.38) K/mm3 Lymph # (Auto) (1.32-3.57) K/mm3 Gates # (Auto) (0.30-0.82) K/mm3 Eos # (Auto) (0.04-0.54) K/mm3 Baso # (Auto) (0.01-0.08) K/mm3 Manual Slide Review Sodium (136-145) mEq/L Potassium (3.5-5.1) mEq/L Chloride (98-107) mEq/L Carbon Dioxide (21-32) mEq/L Anion Gap (5-15) BUN (7-18) mg/dL Creatinine (0.7-1.3) mg/dL Est Cr Clr Drug Dosing mL/min Estimated GFR (MDRD) (>60) mL/min BUN/Creatinine Ratio (14-18) Glucose (83-115) mg/dL Lactic Acid (0.4-2.0) mmol/L Calcium (8.5-10.1) mg/dL Ferritin 1396 H (26-388) ng/ml Total Bilirubin (0.2-1.0) mg/dL AST (15-37) U/L ALT (16-63) U/L Alkaline Phosphatase (46-116) U/L Lactate Dehydrogenase (85-227) U/L C-Reactive Protein (<1.0) mg/dL Total Protein (6.4-8.2) g/dl Albumin (3.4-5.0) g/dl Globulin gm/dL Albumin/Globulin Ratio (1-2) Urine Color Yellow (Yellow) Urine Appearance Clear (Clear) Urine pH 8.5 H (5.0-8.0) Ur Specific [place] 1.020 (1.005-1.030) Urine Protein 2+ H (Negative) Urine Glucose (UA) Negative (Negative) Urine Ketones Negative (Negative) Urine Occult Blood 1+ H (Negative) Urine Nitrite Negative (Negative) Urine Bilirubin Negative (Negative) Urine Urobilinogen 0.2 (0.2-1.0) Ur Leukocyte Esterase Trace H (Negative) Urine RBC 10-20 H (0-5) /hpf Urine WBC 0-5 (0-5) /hpf Ur Epithelial Cells 0-5 (0-5) /hpf Urine Bacteria Not seen (FEW) /hpf Urine Mucus Not seen (FEW) /hpf SARS-CoV-2 RNA (NATHANIEL) Negative (NEGATIVE) - Re-Assessments/Exams Free Text/Narrative Re-Assessment/Exam: 09/15/20 11:22 CXR nl, covid again was neg. UA shows trace leukocyte positive. urine culture ordered. He is on cefdinir. He is afebrile., WBC 9,600. He is stable to go over for his dialysis. Discharge instr. as documented. He has a Urology appt. next week. Departure - Departure Time of Disposition: 10:32 Disposition: Home, Self-Care 01 Condition: Fair Clinical Impression: UTI (urinary tract infection), Dizziness - Discharge Information Instructions: Urinary Tract Infection, Adult, [id number] Referrals: Jasper Haines MD [Primary Care Provider] - Forms: ED Department Discharge Additional Instructions: Ua shows mild evidence for UTI. Continue the cefdinir antibiotic prescribed 3 days ago. Urine culture has been done. Dialysis today as planned. See your Urologist next week as planned. Bring your discharge paperwork and lab work from today for that appointment. Return to ED as needed if symptoms worsening in any way. Sepsis Event Note (ED) - Evaluation Sepsis Screening Result: No Definite Risk - Focused Exam Vital Signs: Vital Signs Temp Pulse Resp BP Pulse Ox 09/15/20 11:03 99.4 F 09/15/20 07:29 98.6 F 81 13 134/85 99 - My Orders Last 24 Hours: My Active Orders 09/15/20 08:20 CULTURE BLOOD [BC] Stat 09/15/20 08:35 CULTURE BLOOD [BC] Stat 09/15/20 09:31 CULTURE URINE [RM] Stat - Assessment/Plan Last 24 Hours: My Active Orders 09/15/20 08:20 CULTURE BLOOD [BC] Stat 09/15/20 08:35 CULTURE BLOOD [BC] Stat 09/15/20 09:31 CULTURE URINE [RM] Stat
--- NOTE | 2020-09-15 08:52 | CR ---
Chest: Portable view of the chest was obtained. Comparison: Prior chest x-ray of 09/12/20. Heart size and mediastinum are normal. Bichamber pacemaker is present. Lungs are clear with no acute parenchymal change. No acute osseous abnormality is appreciated. Impression: 1. Nothing acute is seen on portable chest x-ray. Diagnostic code #2
== END 2020-09-15 11:04 | disposition home or self-care (01) ==
LOC: JD.ED 06:55
DX: N39.0 Urinary tract infection, site not specified (principal); R42 Dizziness and giddiness; Z20.822 Contact with and (suspected) exposure to COVID-19; I48.91 Unspecified atrial fibrillation; E78.00 Pure hypercholesterolemia, unspecified; I12.9 Hypertensive chronic kidney disease with stage 1 through stage 4 chronic kidney disease, or unspecified chronic kidney disease; N18.9 Chronic kidney disease, unspecified; M10.9 Gout, unspecified; Z79.82 Long term (current) use of aspirin; Z79.899 Other long term (current) drug therapy
CPT/HCPCS: 36415; 71045; 80053; 81001; 82728; 83605; 83615; 85025; 86140; 87040; 87086; 99285; U0002; 99283

== ENCOUNTER 2020-10-25 12:50 | Emergency (ER) | payer MEDICARE, BC ==
[2020-10-25 13:14] VITALS: BP 109/85; PULSE 70
--- NOTE | 2020-10-25 13:25 | EDM.PDOC ---
ED HPI GENERAL MEDICAL PROBLEM - General Chief Complaint: Syncope Stated Complaint: [facility] Time Seen by Provider: 10/25/20 12:52 Source of Information: Reports: Patient, EMS, Family () - History of Present Illness INITIAL COMMENTS - FREE TEXT/NARRATIVE: Pt was standing, walking not long after getting home from dialysis when he became very dizzy, weak, lightheaded. He did not pass out but felt he was about to pass out. No chest pain or difficulty breathing. He states he did experience a fair amount of bleeding during dialysis, there was unnoticed bleeding for awhile from his shunt. No recent vomiting or diarrha. Labs checked about 6 weeks ago showed a hgb of 11.1. - Related Data Allergies Allergy/AdvReac Type Severity Reaction Status Date / Time No Known Allergies Allergy Verified 09/15/20 07:27 Home Meds: Home Meds Aspirin 81 mg PO DAILY 09/30/15 [History] Metoprolol Succinate [Toprol XL] 50 mg PO BEDTIME 09/30/15 [History] Dutasteride [Avodart] 0.5 mg PO DAILY 05/06/19 [History] allopurinoL [Zyloprim] 200 mg PO DAILY 05/06/19 [History] Cefdinir [Omnicef] 300 mg PO BID #16 cap 09/13/20 [Rx] Simvastatin 5 mg PO DAILY 09/15/20 [History] Past Medical History HEENT History: Reports: Hard of Hearing, Impaired Vision Other HEENT History: wears glasses Cardiovascular History: Reports: Afib, High Cholesterol, Hypertension Other Cardiovascular History: sick sinus syndrome Genitourinary History: Reports: BPH, Chronic Renal Insuffiency, Dialysis, UTI, Recurrent Other Genitourinary History: enlarged prostate--he states he dribbles urine often during the night. He believes he is down to passing about 2 tablespoons of urine only per day. Has been a hemodialysis patient for 1 year. 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: Immunosuppression Oncologic (Cancer) History: Reports: Bladder - Past Surgical History HEENT Surgical History: Reports: Cataract Surgery Cardiovascular Surgical History: Reports: Pacer GI Surgical History: Reports: Colonoscopy Male Surgical History: Reports: TURBT-Transurethral Resection of Bladder Tumor Social & Family History - Family History Family Medical History: No Pertinent Family History - Tobacco Use Tobacco Use Status *Q: Never Tobacco User Second Hand Smoke Exposure: No - Caffeine Use Caffeine Use: Reports: Coffee - Recreational Drug Use Recreational Drug Use: No - Living Situation & Occupation Living situation: Reports: , with Spouse Occupation: Retired ED ROS GENERAL - Review of Systems Review Of Systems: See Below Constitutional: Denies: Fever, Chills HEENT: Reports: No Symptoms Respiratory: Denies: Shortness of Breath, Cough Cardiovascular: Denies: Chest Pain GI/Abdominal: Denies: Abdominal Pain, Nausea Musculoskeletal: Reports: No Symptoms Skin: Reports: Pallor Neurological: Reports: Dizziness (severe lightheadedness, gone) ED EXAM, DIZZINESS - Physical Exam Exam: See Below General Appearance: Alert, No Apparent Distress Eye Exam: Bilateral Eye: PERRL, Other (has a small R sunconjunctival hemorrhage) Ears: Normal External Exam Nose: Normal Inspection Head Exam: Atraumatic Neck: Supple Respiratory/Chest: No Respiratory Distress, Lungs Clear, Normal Breath Sounds. No: Rhonchi, Wheezing Cardiovascular: Regular Rate, Rhythm Neurological: Alert, No Motor/Sensory Deficits Extremities: Normal Inspection, Pedal Edema (mild bilat) Skin Exam: Warm, Dry, Normal Color Course - Vital Signs Last Recorded V/S: Last Vital Signs Temp 95.8 F L 10/25/20 12:50 Pulse 70 10/25/20 12:50 Resp 12 10/25/20 12:50 BP 109/85 10/25/20 12:50 Pulse Ox 98 10/25/20 12:50 - Orders/Labs/Meds Labs: Laboratory Tests 10/25/20 Range/Units 13:22 WBC 5.45 (4.23-9.07) K/mm3 RBC 3.34 L (4.63-6.08) M/mm3 Hgb 10.3 L (13.7-17.5) gm/dl Hct 33.6 L (40.1-51.0) % MCV 100.6 H (79.0-92.2) fl MCH 30.8 (25.7-32.2) pg MCHC 30.7 L (32.2-35.5) g/dl RDW Std Deviation 52.7 H (35.1-43.9) fL Plt Count 144 L (163-337) K/mm3 MPV 10.2 (9.4-12.3) fl Neut % (Auto) 71.0 H (34.0-67.9) % Lymph % (Auto) 17.4 L (21.8-53.1) % [place] % (Auto) 8.6 (5.3-12.2) % Eos % (Auto) 2.4 (0.8-7.0) Baso % (Auto) 0.2 (0.1-1.2) % Neut # (Auto) 3.87 (1.78-5.38) K/mm3 Lymph # (Auto) 0.95 L (1.32-3.57) K/mm3 [place] # (Auto) 0.47 (0.30-0.82) K/mm3 Eos # (Auto) 0.13 (0.04-0.54) K/mm3 Baso # (Auto) 0.01 (0.01-0.08) K/mm3 - Re-Assessments/Exams Free Text/Narrative Re-Assessment/Exam: 10/25/20 14:22 Hgb today is 10.3, down from about 11.1 6 wks ago, likely a reflection of the bleeding he had at dialysis this past morning. His BP has been good while here int ED, have given about 400 ml IV fluid. He has been resting comfortably. Discharge instr. as documented. Departure - Departure Time of Disposition: 13:57 Disposition: Home, Self-Care 01 Condition: Fair Clinical Impression: Near syncope Anemia Qualifiers: Anemia type: other cause Other causes of anemia: other cause, not classified Qualified Code(s): D64.89 - Other specified anemias - Discharge Information Instructions: Near-Syncope, [id number] Referrals: Jasper Haines MD [Primary Care Provider] - Forms: ED Department Discharge Care Plan Goals: Rest. Continue current medications. If you do get dizzy or lightheaded sitting or standing lie down or get your head down as discussed. Return to ED as needed if symptoms worsening in any way. Sepsis Event Note (ED) - Evaluation Sepsis Screening Result: No Definite Risk - Focused Exam Vital Signs: Vital Signs Temp Pulse Resp BP Pulse Ox 10/25/20 12:50 95.8 F L 70 12 109/85 98
== END 2020-10-25 14:15 | disposition home or self-care (01) ==
LOC: SUPCPDRO 12:50 → JD.ED 12:50
DX: R55 Syncope and collapse (principal); D64.89 Other specified anemias; H11.31 Conjunctival hemorrhage, right eye; I48.91 Unspecified atrial fibrillation; E78.00 Pure hypercholesterolemia, unspecified; I12.0 Hypertensive chronic kidney disease with stage 5 chronic kidney disease or end stage renal disease; E11.22 Type 2 diabetes mellitus with diabetic chronic kidney disease; N18.6 End stage renal disease; M10.9 Gout, unspecified; Z99.2 Dependence on renal dialysis; Z79.82 Long term (current) use of aspirin; Z79.899 Other long term (current) drug therapy
CPT/HCPCS: 36415; 85025; 99283; 99285

== ENCOUNTER 2021-03-24 17:18 | Emergency (ER) | payer MEDICARE, BC ==
--- NOTE | 2021-03-24 17:41 | EDM.PDOC ---
ED HPI GENERAL MEDICAL PROBLEM - General Chief Complaint: Genitourinary Problem Stated Complaint: BURNING WHILE URINATING Time Seen by Provider: 03/24/21 17:39 - History of Present Illness INITIAL COMMENTS - FREE TEXT/NARRATIVE: 85-year-old male presents the emergency room with painful urination. Patient is a dialysis patient last had dialysis yesterday. He still makes urine. On Thursday, now 2 days ago the patient had a cystoscopy I believe for follow-up with a history of bladder cancer in the past. Since that time the patient has had worsening discomfort with voiding. He is also running fevers and feeling weak. He has been feverish he has decreased appetite. - Related Data Allergies Allergy/AdvReac Type Severity Reaction Status Date / Time No Known Allergies Allergy Verified 03/24/21 17:44 Home Meds: Home Meds Aspirin 81 mg PO DAILY 09/30/15 [History] Metoprolol Succinate [Toprol XL] 50 mg PO BEDTIME 09/30/15 [History] Dutasteride [Avodart] 0.5 mg PO DAILY 05/06/19 [History] allopurinoL [Zyloprim] 200 mg PO DAILY 05/06/19 [History] Simvastatin 5 mg PO DAILY 09/15/20 [History] Midodrine 10 mg PO ASDIRECTED 03/24/21 [History] Past Medical History HEENT History: Reports: Hard of Hearing, Impaired Vision Other HEENT History: wears glasses Cardiovascular History: Reports: Afib, High Cholesterol, Hypertension Other Cardiovascular History: sick sinus syndrome Genitourinary History: Reports: BPH, Chronic Renal Insuffiency, Dialysis, UTI, Recurrent Other Genitourinary History: enlarged prostate--he states he dribbles urine often during the night. He believes he is down to passing about 2 tablespoons of urine only per day. Has been a hemodialysis patient for 1 year. 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: Immunosuppression Oncologic (Cancer) History: Reports: Bladder - Past Surgical History HEENT Surgical History: Reports: Cataract Surgery Cardiovascular Surgical History: Reports: Pacer GI Surgical History: Reports: Colonoscopy Male Surgical History: Reports: TURBT-Transurethral Resection of Bladder Tumor Social & Family History - Family History Family Medical History: No Pertinent Family History - Caffeine Use Caffeine Use: Reports: Coffee - Living Situation & Occupation Living situation: Reports: , with Spouse Occupation: Retired ED ROS GENERAL - Review of Systems Review Of Systems: See Below Constitutional: Reports: Fever, Chills, Weakness, Fatigue HEENT: Reports: No Symptoms Respiratory: Reports: No Symptoms Cardiovascular: Reports: No Symptoms Endocrine: Reports: No Symptoms GI/Abdominal: Reports: No Symptoms : Reports: Dysuria Musculoskeletal: Reports: No Symptoms Skin: Reports: No Symptoms Neurological: Reports: No Symptoms Psychiatric: Reports: No Symptoms ED EXAM, GENERAL - Physical Exam Exam: See Below Exam Limited By: No Limitations General Appearance: Alert, No Apparent Distress Head: Atraumatic, Normocephalic Neck: Normal Inspection, Supple, Non-Tender, Full Range of Motion Respiratory/Chest: No Respiratory Distress, Lungs Clear, Normal Breath Sounds Cardiovascular: Regular Rate, Rhythm, No Edema, No Murmur GI/Abdominal: Normal Bowel Sounds, Soft, Tender (Suprapubic discomfort), Other (Mild suprapubic discomfort). No: Guarding, Rigid, Rebound Back Exam: Normal Inspection. No: CVA Tenderness (L), CVA Tenderness (R) Extremities: Normal Inspection, Pedal Edema (Scant amount) Neurological: Alert, Oriented, Normal Cognition Psychiatric: Normal Affect, Normal Mood Skin Exam: Warm, Dry, Intact #1 Interpretation EKG Date: 03/24/21 Rhythm: NSR [place]: LAD-Left [place] Deviation (Borderline) P-Wave: Present QRS: Other (Waves V1 V2 decreased voltage in the limb leads) ST-T: Normal QT: Prolonged Comparison: Change From Previous EKG (QTC is slightly prolonged compared to September 12 of this year) EKG Interpretation Comments: Abnormal EKG Course - Vital Signs Last Recorded V/S: Last Vital Signs Temp 38.2 C H 03/24/21 17:41 Pulse 109 H 03/24/21 17:41 Resp 16 03/24/21 17:41 BP 165/84 H 03/24/21 17:41 Pulse Ox 93 L 03/24/21 17:41 - Orders/Labs/Meds Orders: Active Orders 24 hr Category Date Time Status EKG Documentation Completion [RC] STAT Care 03/24/21 17:53 Active BLOOD CULTURE [MREF] Stat Lab 03/24/21 18:15 Received BLOOD CULTURE [MREF] Stat Lab 03/24/21 18:25 Received CORONAVIRUS COVID-19 NATHANIEL [MOLEC] Stat Lab 03/24/21 20:45 Received CULTURE URINE [MREF] Stat Lab 03/24/21 19:00 Received cefTRIAXone [Rocephin] 1 gm Med 03/24/21 21:00 Active Sodium Chloride 0.9% [Normal Saline] 100 ml IV Q24H Blood Culture x2 Reflex Set [OM.PC] Stat Oth 03/24/21 17:52 Ordered Medication Orders Ceftriaxone Sodium 1 gm/ (Sodium Chloride) 100 mls @ 200 mls/hr IV Q24H DOUGLAS Last Admin: 03/24/21 21:00 Dose: 200 mls/hr Documented by: Labs: Laboratory Tests 03/24/21 03/24/21 03/24/21 Range/Units 17:45 17:45 17:45 WBC 13.79 H (4.23-9.07) K/mm3 RBC 3.81 L (4.63-6.08) M/mm3 Hgb 11.6 L (13.7-17.5) gm/dl Hct 37.2 L (40.1-51.0) % MCV 97.6 H D (79.0-92.2) fl MCH 30.4 (25.7-32.2) pg MCHC 31.2 L (32.2-35.5) g/dl RDW Std Deviation 49.7 H (35.1-43.9) fL Plt Count 199 (163-337) K/mm3 MPV 9.6 (9.4-12.3) fl Neut % (Auto) 82.7 H (34.0-67.9) % Lymph % (Auto) 7.7 L (21.8-53.1) % [place] % (Auto) 8.9 (5.3-12.2) % Eos % (Auto) 0.4 L (0.8-7.0) Baso % (Auto) 0.1 (0.1-1.2) % Neut # (Auto) 11.40 H (1.78-5.38) K/mm3 Lymph # (Auto) 1.06 L (1.32-3.57) K/mm3 [place] # (Auto) 1.23 H (0.30-0.82) K/mm3 Eos # (Auto) 0.05 (0.04-0.54) K/mm3 Baso # (Auto) 0.02 (0.01-0.08) K/mm3 Manual Slide Review Abnormal smear PT 10.6 (9.7-12.0) SECONDS INR 0.99 APTT 28.6 (21.7-31.4) SECONDS Sodium 139 (136-145) mEq/L Potassium 4.3 (3.5-5.1) mEq/L Chloride 102 (98-107) mEq/L Carbon Dioxide 27 (21-32) mEq/L Anion Gap 14.3 (5-15) BUN 30 H D (7-18) mg/dL Creatinine 4.2 H (0.7-1.3) mg/dL Est Cr Clr Drug Dosing 14.63 mL/min Estimated GFR (MDRD) 14 (>60) mL/min BUN/Creatinine Ratio 7.1 L (14-18) Glucose 118 H (70-99) mg/dL Lactic Acid (0.4-2.0) mmol/L Calcium 9.1 (8.5-10.1) mg/dL Total Bilirubin 0.5 (0.2-1.0) mg/dL AST 11 L (15-37) U/L ALT 13 L (16-63) U/L Alkaline Phosphatase 75 (46-116) U/L Troponin I 0.046 (0.00-0.056) ng/mL Total Protein 7.0 (6.4-8.2) g/dl Albumin 3.6 (3.4-5.0) g/dl Globulin 3.4 gm/dL Albumin/Globulin Ratio 1.1 (1-2) Urine Color (Yellow) Urine Appearance (Clear) Urine pH (5.0-8.0) Ur Specific [place] (1.005-1.030) Urine Protein (Negative) Urine Glucose (UA) (Negative) Urine Ketones (Negative) Urine Occult Blood (Negative) Urine Nitrite (Negative) Urine Bilirubin (Negative) Urine Urobilinogen (0.2-1.0) Ur Leukocyte Esterase (Negative) Urine RBC (0-5) /hpf Urine WBC (0-5) /hpf Ur Epithelial Cells (0-5) /hpf Urine Bacteria (FEW) /hpf Urine Mucus (FEW) /hpf 03/24/21 03/24/21 Range/Units 18:15 19:00 WBC (4.23-9.07) K/mm3 RBC (4.63-6.08) M/mm3 Hgb (13.7-17.5) gm/dl Hct (40.1-51.0) % MCV (79.0-92.2) fl MCH (25.7-32.2) pg MCHC (32.2-35.5) g/dl RDW Std Deviation (35.1-43.9) fL Plt Count (163-337) K/mm3 MPV (9.4-12.3) fl Neut % (Auto) (34.0-67.9) % Lymph % (Auto) (21.8-53.1) % [place] % (Auto) (5.3-12.2) % Eos % (Auto) (0.8-7.0) Baso % (Auto) (0.1-1.2) % Neut # (Auto) (1.78-5.38) K/mm3 Lymph # (Auto) (1.32-3.57) K/mm3 [place] # (Auto) (0.30-0.82) K/mm3 Eos # (Auto) (0.04-0.54) K/mm3 Baso # (Auto) (0.01-0.08) K/mm3 Manual Slide Review PT (9.7-12.0) SECONDS INR APTT (21.7-31.4) SECONDS Sodium (136-145) mEq/L Potassium (3.5-5.1) mEq/L Chloride (98-107) mEq/L Carbon Dioxide (21-32) mEq/L Anion Gap (5-15) BUN (7-18) mg/dL Creatinine (0.7-1.3) mg/dL Est Cr Clr Drug Dosing mL/min Estimated GFR (MDRD) (>60) mL/min BUN/Creatinine Ratio (14-18) Glucose (70-99) mg/dL Lactic Acid 1.3 (0.4-2.0) mmol/L Calcium (8.5-10.1) mg/dL Total Bilirubin (0.2-1.0) mg/dL AST (15-37) U/L ALT (16-63) U/L Alkaline Phosphatase (46-116) U/L Troponin I (0.00-0.056) ng/mL Total Protein (6.4-8.2) g/dl Albumin (3.4-5.0) g/dl Globulin gm/dL Albumin/Globulin Ratio (1-2) Urine Color [place] H (Yellow) Urine Appearance Cloudy H (Clear) Urine pH 8.5 H (5.0-8.0) Ur Specific [place] 1.020 (1.005-1.030) Urine Protein 3+ H (Negative) Urine Glucose (UA) Negative (Negative) Urine Ketones Negative (Negative) Urine Occult Blood 3+ H (Negative) Urine Nitrite Negative (Negative) Urine Bilirubin Negative (Negative) Urine Urobilinogen 0.2 (0.2-1.0) Ur Leukocyte Esterase 3+ H (Negative) Urine RBC >100 H (0-5) /hpf Urine WBC Too numerous to cnt H (0-5) /hpf Ur Epithelial Cells Not seen (0-5) /hpf Urine Bacteria Moderate H (FEW) /hpf Urine Mucus Not seen (FEW) /hpf Meds: Medications Generic Name Dose Route Start Last Admin Trade Name Freq PRN Reason Stop Dose Admin Ceftriaxone Sodium 1 gm/ 100 mls @ 200 mls/hr 03/24/21 21:00 03/24/21 21:00 Sodium Chloride IV 200 mls/hr Q24H DOUGLAS Administration - Re-Assessments/Exams Free Text/Narrative Re-Assessment/Exam: 03/24/21 19:03 Urine sample just obtained 03/24/21 20:52 Patient appears to have pyuria. Case discussed with Dr. Rojas, hospitalist at who is kind enough to accept the patient we will give him a gram of Rocephin prior to transfer please refer to labs. Limited fluids given to the patient because of fluids dialysis Departure - Departure Time of Disposition: 20:53 Disposition: DC/Tfer to Acute Hospital 02 Clinical Impression: Bacteriuria with pyuria - Discharge Information Referrals: Jasper Haines MD [Primary Care Provider] - Forms: ED Department Discharge Sepsis Event Note (ED) - Focused Exam Vital Signs: Vital Signs Temp Pulse Resp BP Pulse Ox 03/24/21 17:41 38.2 C H 109 H 16 165/84 H 93 L - My Orders Last 24 Hours: My Active Orders 03/24/21 17:52 Blood Culture x2 Reflex Set [OM.PC] Stat 03/24/21 17:53 EKG Documentation Completion [RC] STAT 03/24/21 18:15 BLOOD CULTURE [MREF] Stat 03/24/21 18:25 BLOOD CULTURE [MREF] Stat 03/24/21 19:00 CULTURE URINE [MREF] Stat 03/24/21 20:45 CORONAVIRUS COVID-19 NATHANIEL [MOLEC] Stat 03/24/21 21:00 cefTRIAXone [Rocephin] 1 gm Sodium Chloride 0.9% [Normal Saline] 100 ml IV Q24H - Assessment/Plan Last 24 Hours: My Active Orders 03/24/21 17:52 Blood Culture x2 Reflex Set [OM.PC] Stat 03/24/21 17:53 EKG Documentation Completion [RC] STAT 03/24/21 18:15 BLOOD CULTURE [MREF] Stat 03/24/21 18:25 BLOOD CULTURE [MREF] Stat 03/24/21 19:00 CULTURE URINE [MREF] Stat 03/24/21 20:45 CORONAVIRUS COVID-19 NATHANIEL [MOLEC] Stat 03/24/21 21:00 cefTRIAXone [Rocephin] 1 gm Sodium Chloride 0.9% [Normal Saline] 100 ml IV Q24H
[2021-03-24 17:44] VITALS: BP 165/84; PULSE 109
--- NOTE | 2021-03-24 19:34 | CR ---
Chest: Portable view of the chest was obtained. Comparison: Prior chest x-rays of 09/15/20 and 09/12/20. Heart size and mediastinum are within normal limits. Bichamber pacemaker is seen. Lungs show very slight increased central lung markings most likely representing mild bronchitis. Lungs otherwise are clear. Bony structures are grossly intact. Impression: 1. Findings suspicious for mild bronchitis. This could be viral in etiology. 2. Other findings as noted above which are stable. Diagnostic code #3
[2021-03-24] MEDS ORDERED: cefTRIAXone 1 GM in Sodium Chloride 0.9% 100 ML IV SCH (21:00)
== END 2021-03-24 21:23 ==
LOC: JD.ED 17:18
DX: R82.81 Pyuria (principal); R82.71 Bacteriuria; I48.91 Unspecified atrial fibrillation; E78.00 Pure hypercholesterolemia, unspecified; I12.9 Hypertensive chronic kidney disease with stage 1 through stage 4 chronic kidney disease, or unspecified chronic kidney disease; E11.22 Type 2 diabetes mellitus with diabetic chronic kidney disease; N18.9 Chronic kidney disease, unspecified; M10.9 Gout, unspecified; Z79.899 Other long term (current) drug therapy
CPT/HCPCS: 36415; 71045; 80053; 81001; 83605; 84484; 85025; 85610; 85730; 87040; 87086; 93005; 96365; 99285; J0696; 93010; 99284

== ENCOUNTER 2021-04-13 10:56 | Emergency (ER) | payer MEDICARE, BC ==
[2021-04-13 11:12] VITALS: BP 143/85; PULSE 86
--- NOTE | 2021-04-13 11:41 | EDM.PDOC ---
ED HPI GENERAL MEDICAL PROBLEM - General Chief Complaint: General Stated Complaint: LETHARGIC/DIZZY/WEAK/CONFUSION Time Seen by Provider: 04/13/21 11:11 Source of Information: Reports: Patient, Family, RN Notes Reviewed History Limitations: Reports: No Limitations - History of Present Illness INITIAL COMMENTS - FREE TEXT/NARRATIVE: Patient is an 85-year-old male presenting to the emergency department with complaints of weakness, confusion, and nausea with a single episode of vomiting this morning. Patient reports that he took a tramadol late yesterday afternoon and has been feeling somewhat confused and disoriented since that time. He has been having problems with the neck pain for which she has seen his primary care provider. He has been having weakness ever since his neck pain started. Had imaging completed at [place] on Thursday. He was advised to take the tramadol and yesterday was the first time that he is used it. This morning, he had a single episode of vomiting but denies any significant nausea at this time. Denies sudden onset of headache or vision changes. He has had no chest pain, shortness of breath, fever, chills, or diarrhea. He does have a history of urinary tract infections which his states seem to occur after each time he has cystoscopy completed. He has this done every 6 months for history of bladder cancer. They report it was a couple weeks ago when he had his last cystoscopy done. Patient in end-stage renal failure and was scheduled to be at dialysis this morning, however was told by the individual at the door to come to ER instead of going to dialysis. - Related Data Allergies Allergy/AdvReac Type Severity Reaction Status Date / Time No Known Allergies Allergy Verified 04/13/21 11:08 Home Meds: Home Meds Aspirin 81 mg PO DAILY 09/30/15 [History] Metoprolol Succinate [Toprol XL] 50 mg PO BEDTIME 09/30/15 [History] Dutasteride [Avodart] 0.5 mg PO DAILY 05/06/19 [History] allopurinoL [Zyloprim] 200 mg PO DAILY 05/06/19 [History] Simvastatin 5 mg PO DAILY 09/15/20 [History] Midodrine 10 mg PO ASDIRECTED 03/24/21 [History] Sulfamethoxazole/Trimethoprim [Bactrim 400-80 MG] 1 each PO BID #14 tablet 04/13/21 [Rx] Past Medical History HEENT History: Reports: Hard of Hearing, Impaired Vision Other HEENT History: wears glasses Cardiovascular History: Reports: Afib, High Cholesterol, Hypertension Other Cardiovascular History: sick sinus syndrome Genitourinary History: Reports: BPH, Chronic Renal Insuffiency, Dialysis, UTI, Recurrent Other Genitourinary History: enlarged prostate--he states he dribbles urine often during the night. He believes he is down to passing about 2 tablespoons of urine only per day. Has been a hemodialysis patient for 1 year. 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: Immunosuppression Oncologic (Cancer) History: Reports: Bladder - Past Surgical History HEENT Surgical History: Reports: Cataract Surgery Cardiovascular Surgical History: Reports: Pacer GI Surgical History: Reports: Colonoscopy Male Surgical History: Reports: TURBT-Transurethral Resection of Bladder Tumor Musculoskeletal Surgical History: Reports: Knee Replacement Social & Family History - Family History Family Medical History: No Pertinent Family History - Tobacco Use Tobacco Use Status *Q: Never Tobacco User Second Hand Smoke Exposure: No - Caffeine Use Caffeine Use: Reports: Coffee - Recreational Drug Use Recreational Drug Use: No - Living Situation & Occupation Living situation: Reports: , with Spouse Occupation: Retired ED ROS GENERAL - Review of Systems Review Of Systems: Comprehensive ROS is negative, except as noted in HPI. ED EXAM, GENERAL - Physical Exam Exam: See Below Exam Limited By: No Limitations General Appearance: Alert, WD/WN, No Apparent Distress Eye Exam: Bilateral Eye: PERRL Head: Atraumatic, Normocephalic Respiratory/Chest: No Respiratory Distress, Lungs Clear, Normal Breath Sounds, No Accessory Muscle Use, Chest Non-Tender Cardiovascular: Normal Peripheral Pulses, Regular Rate, Rhythm, No Edema, No Gallop, No JVD, No Murmur, No Rub GI/Abdominal: Normal Bowel Sounds, Soft, Non-Tender, No Organomegaly, No Distention, No Abnormal Bruit, No Mass Neurological: Alert, Oriented, CN II-XII Intact, Normal Cognition, Normal Gait, Normal Reflexes, No Motor/Sensory Deficits Psychiatric: Normal Affect, Normal Mood Skin Exam: Warm, Dry, Intact, Normal Color, No Rash #1 Interpretation EKG Date: 04/13/21 Time: 11:03 Rhythm: NSR Rate (Beats/Min): 88 [place]: Normal P-Wave: Present QRS: Normal ST-T: Normal QT: Prolonged Course - Vital Signs Last Recorded V/S: Last Vital Signs Temp 97.6 F 04/13/21 11:08 Pulse 86 04/13/21 11:08 Resp 16 04/13/21 11:08 BP 143/85 H 04/13/21 11:08 Pulse Ox 94 L 04/13/21 11:08 - Orders/Labs/Meds Labs: Laboratory Tests 04/13/21 04/13/21 04/13/21 Range/Units 11:10 11:10 11:26 WBC 7.72 (4.23-9.07) K/mm3 RBC 3.81 L (4.63-6.08) M/mm3 Hgb 11.5 L (13.7-17.5) gm/dl Hct 37.2 L (40.1-51.0) % MCV 97.6 H (79.0-92.2) fl MCH 30.2 (25.7-32.2) pg MCHC 30.9 L (32.2-35.5) g/dl RDW Std Deviation 51.1 H (35.1-43.9) fL Plt Count 238 (163-337) K/mm3 MPV 9.7 (9.4-12.3) fl Neut % (Auto) 76.9 H (34.0-67.9) % Lymph % (Auto) 13.1 L (21.8-53.1) % [place] % (Auto) 6.7 (5.3-12.2) % Eos % (Auto) 2.7 (0.8-7.0) Baso % (Auto) 0.5 (0.1-1.2) % Neut # (Auto) 5.93 H (1.78-5.38) K/mm3 Lymph # (Auto) 1.01 L (1.32-3.57) K/mm3 [place] # (Auto) 0.52 (0.30-0.82) K/mm3 Eos # (Auto) 0.21 (0.04-0.54) K/mm3 Baso # (Auto) 0.04 (0.01-0.08) K/mm3 Sodium 139 (136-145) mEq/L Potassium 4.3 (3.5-5.1) mEq/L Chloride 101 (98-107) mEq/L Carbon Dioxide 28 (21-32) mEq/L Anion Gap 14.3 (5-15) BUN 39 H (7-18) mg/dL Creatinine 4.5 H (0.7-1.3) mg/dL Est Cr Clr Drug Dosing 13.65 mL/min Estimated GFR (MDRD) 13 (>60) mL/min BUN/Creatinine Ratio 8.7 L (14-18) Glucose 142 H (70-99) mg/dL Calcium 9.0 (8.5-10.1) mg/dL Total Bilirubin 0.4 (0.2-1.0) mg/dL AST 14 L (15-37) U/L ALT 15 L (16-63) U/L Alkaline Phosphatase 65 (46-116) U/L Total Protein 6.9 (6.4-8.2) g/dl Albumin 3.4 (3.4-5.0) g/dl Globulin 3.5 gm/dL Albumin/Globulin Ratio 1.0 (1-2) Urine Color Yellow (Yellow) Urine Appearance Clear (Clear) Urine pH 8.5 H (5.0-8.0) Ur Specific [place] 1.020 (1.005-1.030) Urine Protein 2+ H (Negative) Urine Glucose (UA) Negative (Negative) Urine Ketones Negative (Negative) Urine Occult Blood 2+ H (Negative) Urine Nitrite Negative (Negative) Urine Bilirubin Negative (Negative) Urine Urobilinogen 0.2 (0.2-1.0) Ur Leukocyte Esterase 1+ H (Negative) Urine RBC 30-40 H (0-5) /hpf Urine WBC 5-10 H (0-5) /hpf Ur Squamous Epith Cells 0-5 (0-5) /hpf Urine Bacteria Few (FEW) /hpf Urine Mucus Few (FEW) /hpf - Re-Assessments/Exams Free Text/Narrative Re-Assessment/Exam: 04/13/21 13:35 Hematology was significant for hemoglobin 11.5, BUN 39, creatinine 4.5. Urinalysis was positive for UTI. Head CT, chest x-ray, and EKG showed no acute abnormalities. Patient symptoms are likely due to urinary tract infection however, tramadol is likely contributing as well. We will discharge him so that he may dialyze. This will help to remove the tramadol. I will send prescription for Bactrim and recommend he take this after his dialysis run. Discussed return precautions. Discharge instructions as documented. Departure - Departure Time of Disposition: 11:55 Disposition: Home, Self-Care 01 Condition: Good Clinical Impression: UTI (urinary tract infection) Qualifiers: Urinary tract infection type: site unspecified Hematuria presence: with hematuria Qualified Code(s): N39.0 - Urinary tract infection, site not specified - Discharge Information *PRESCRIPTION DRUG MONITORING PROGRAM REVIEWED*: No *COPY OF PRESCRIPTION DRUG MONITORING REPORT IN PATIENT SAVANAH: No Prescriptions: Sulfamethoxazole/Trimethoprim [Bactrim 400-80 MG] 1 each PO BID #14 tablet Instructions: Urinary Tract Infection, Adult Referrals: Jasper Haines MD [Primary Care Provider] - Forms: ED Department Discharge Additional Instructions: You were seen in the emergency department today for weakness, confusion, nausea, and occasional dizziness. Work-up included blood work, EKG of your heart, chest x-ray, head CT, and urinalysis. Results of your work-up do show that you have a urinary tract infection. The tramadol you took yesterday may also be contributing to your symptoms. I have sent prescription for Bactrim to [facility]. Begin taking this as prescribed after your dialysis run today. Recommend going directly to dialysis. If you should experience any new or wor sening symptoms, please do not hesitate to return to the emergency department for reevaluation. Sepsis Event Note (ED) - Evaluation Sepsis Screening Result: No Definite Risk
--- NOTE | 2021-04-14 07:10 | CR ---
Chest: 2 views of the chest were obtained. Comparison: Prior chest x-ray of 03/24/21. Heart size and mediastinum are normal. Bichamber pacemaker is present. Slight parenchymal density is noted within the left lung base. Blunting of both posterior costophrenic angles are seen presumably due to small pleural effusions. Lungs appear somewhat hyperinflated. No acute osseous abnormality is appreciated. Impression: 1. Findings suspicious for small bilateral pleural effusions. 2. Lungs are hyperinflated compatible with emphysematous change. 3. Minimal density within the left lung base either due to atelectasis or an area of small pneumonia. Diagnostic code #3
--- NOTE | 2021-04-14 08:19 | CT ---
Head CT Technique: Multiple axial sections through the brain were obtained. Intravenous contrast was not utilized. Reconstructed coronal and sagittal images were obtained. Comparison: Prior head CT study of 10/18/11 and prior MRI brain of 10/20/11. Findings: Ventricles along with basal cisterns and sulci over the convexities are mildly prominent. Mild areas of diminished density are seen within the periventricular white matter which is most likely due to small vessel ischemic demyelination change. No other abnormal parenchymal densities are seen. No evidence of intracranial hemorrhage is seen. No midline shift or mass-effect is seen. Bone window settings were reviewed. Visualized mastoid sinuses and paranasal sinuses show nothing acute. Atherosclerotic calcification is seen within the carotid siphon. No acute calvarial abnormality is appreciated. Impression: 1. Senescent change as noted above which has progressed from previous imaging. 2. Nothing acute is appreciated on noncontrast head CT study. Diagnostic code #2 I agree with preliminary report from [facility], finalized on 04/13/21, 1:11 PM CDT, code 1
== END 2021-04-13 12:03 | disposition home or self-care (01) ==
LOC: JD.ED 10:56
DX: N39.0 Urinary tract infection, site not specified (principal); R31.9 Hematuria, unspecified; I12.9 Hypertensive chronic kidney disease with stage 1 through stage 4 chronic kidney disease, or unspecified chronic kidney disease; N18.9 Chronic kidney disease, unspecified; E78.00 Pure hypercholesterolemia, unspecified; E11.9 Type 2 diabetes mellitus without complications; Z79.82 Long term (current) use of aspirin; Z79.899 Other long term (current) drug therapy; R41.0 Disorientation, unspecified
CPT/HCPCS: 36415; 70450; 70450-26; 71046; 71046-26; 80053; 81001; 85025; 87086; 87088; 87186; 93005; 93010; 99284; 99285-25

== ENCOUNTER 2021-04-16 01:26 | Emergency (ER) | payer MEDICARE, BC ==
--- NOTE | 2021-04-16 02:53 | EDM.PDOC ---
ED HPI GENERAL MEDICAL PROBLEM - General Chief Complaint: Neuro Symptoms/Deficits Stated Complaint: CONFUSION/HEADACHES/WAS HERE 3 DAYS AGO FOR UTI Time Seen by Provider: 04/16/21 01:55 Source of Information: Reports: Patient, Family (, son) History Limitations: Reports: No Limitations - History of Present Illness INITIAL COMMENTS - FREE TEXT/NARRATIVE: Mr. Tucker is a very pleasant 85-year-old gentleman who is now brought to the ED by his and son for confusion. The patient's son tells me that the patient was diagnosed with pyelonephritis about 2 weeks ago, and was admitted to [facility] for about 1 week. He then followed up with his PCP this past , 04/11/2021. A urinalysis was not performed, but the patient was complaining of a neck ache that was causing him to have a headache for 2 weeks. Imaging studies of his head and cervical spine were performed, which I am told were unremarkable. He was prescribed tramadol. The patient took his first dose of tramadol this past 04/12/2021, which then caused him to have nausea and confusion. Medical records indicate that the patient was then seen in this ED on 04/13/2021 with a complaint at that time of weakness, confusion, and nausea, with a single episode of emesis that morning. He was found to be hemodynamically stable, afebrile, saturating 94% on room air. His physical exam was unremarkable. Work-up included a CBC, CMP, urinalysis, CT of the head, and chest x-ray. His urinalysis was suggestive of a UTI, while the rest of his work-up was unremarkable. A sample of his urine was sent for culture, and patient was started on oral Bactrim DS, 1 tab po BID #14, which he has been taking as prescribed. Since the patient started taking Bactrim DS, his dysuria, chills, and nausea have resolved, however, his neck and headache and confusion have continued. Examples of his confusion include him having trouble finding the bathroom, and once in the bathroom, having difficulty finding his way out of it, and having difficulty figuring out how to get into a car. Here in the ED tonight, the patient is found to be hemodynamically stable, afebrile, saturating 96% on room air. He appears to be comfortable, in no acute distress. He also appears to be alert and lucid, and the patient's and son agree that the patient is considerably less confused than he was earlier. The patient denies having a recent fever, chills, sore throat, ear pain, nasal or sinus congestion, cough, dyspnea, chest pain, palpitations, constipation, diarrhea, abdominal pain, recent weight gain or weight loss, recent bloody bowel movements or black bowel movements, recent joint aches, or rashes. The patient's PCP is Dr. Jasper Haines. His Monitoring Coordinator is Dr. Danial Cohen. His Urologist is Dr. Mehran Maxwell. His Coat Baster is Dr. Mala Flanagan. He has received 2 COVID vaccinations. - Related Data Allergies Allergy/AdvReac Type Severity Reaction Status Date / Time No Known Allergies Allergy Verified 04/16/21 01:58 Home Meds: Home Meds Aspirin 81 mg PO DAILY 09/30/15 [History] Metoprolol Succinate [Toprol XL] 50 mg PO BEDTIME 09/30/15 [History] Dutasteride [Avodart] 0.5 mg PO DAILY 05/06/19 [History] allopurinoL [Zyloprim] 200 mg PO DAILY 05/06/19 [History] Simvastatin 5 mg PO DAILY 09/15/20 [History] Midodrine 10 mg PO ASDIRECTED 03/24/21 [History] Sulfamethoxazole/Trimethoprim [Bactrim 400-80 MG] 1 each PO BID #14 tablet 04/13/21 [Rx] levoFLOXacin [Levofloxacin] 1 tab PO QAM #5 tablet 04/16/21 [Rx] Past Medical History HEENT History: Reports: Hard of Hearing, Impaired Vision (wears glasses) Cardiovascular History: Reports: Afib (paroxysmal), Arrhythmia (sick sinus syndrome), High Cholesterol, Hypertension Genitourinary History: Reports: BPH, Dialysis (Q , , Sa x 2019) Musculoskeletal History: Reports: Gout (suspected, not confirmed), Osteoarthritis Oncologic (Cancer) History: Reports: Bladder (s/p TURBT, CTx) - Past Surgical History HEENT Surgical History: Reports: Cataract Surgery (bilateral) Cardiovascular Surgical History: Reports: Pacer, Vascular Surgery (RUE AVF) GI Surgical History: Reports: Colonoscopy (x 1 or 2) Male Surgical History: Reports: TURBT-Transurethral Resection of Bladder Tumor Musculoskeletal Surgical History: Reports: Knee Replacement (right) Social & Family History - Tobacco Use Tobacco Use Status *Q: Former Tobacco User Years of Tobacco use: 17 Packs/Tins Daily: 1 Month/Year Tobacco Last Used: Quit 1974 Tobacco Use Comment: Started smoking 1957 - Caffeine Use Caffeine Use: Reports: Coffee - Alcohol Use Alcohol Use History: No - Recreational Drug Use Recreational Drug Use: No - Living Situation & Occupation Living situation: Reports: , with Spouse Occupation: Retired ED ROS GENERAL - Review of Systems Review Of Systems: Comprehensive ROS is negative, except as noted in HPI. ED EXAM, GENERAL - Physical Exam Exam: See Below Exam Limited By: No Limitations General Appearance: Alert, WD/WN, No Apparent Distress Eye Exam: Bilateral Eye: EOMI, Normal Inspection Ears: Normal External Exam, Hearing Grossly Normal Nose: Normal Inspection Throat/Mouth: Normal Inspection, Normal Lips, Normal Voice, No Airway Compromise Head: Atraumatic, Normocephalic Neck: Normal Inspection, Full Range of Motion Respiratory/Chest: No Respiratory Distress, Lungs Clear, Normal Breath Sounds, No Accessory Muscle Use Cardiovascular: Normal Peripheral Pulses, Regular Rate, Rhythm, No Gallop, No JVD, No Murmur, No Rub Peripheral Pulses: 3+: Radial (L), Radial (R) GI/Abdominal: Normal Bowel Sounds, Soft, Non-Tender, No Organomegaly, No Distention, No Abnormal Bruit, No Mass Back Exam: Normal Inspection, Full Range of Motion, NT Extremities: Normal Inspection, Normal Range of Motion, Normal Capillary Refill Neurological: Alert, Oriented, CN II-XII Intact, Normal Cognition, No Motor/Sensory Deficits Psychiatric: Normal Affect Skin Exam: Warm, Dry, Intact, Normal Color, No Rash Course - Vital Signs Last Recorded V/S: Last Vital Signs Temp 36.6 C 04/16/21 01:55 Pulse 80 04/16/21 03:00 Resp 18 04/16/21 03:00 BP 118/73 04/16/21 03:00 Pulse Ox 96 04/16/21 03:00 - Orders/Labs/Meds Orders: Active Orders 24 hr Category Date Time Status CULTURE URINE [MREF] Stat Lab 04/16/21 03:10 Received Labs: Laboratory Tests 04/16/21 04/16/21 04/16/21 Range/Units 03:10 03:14 03:14 WBC 7.07 (4.23-9.07) K/mm3 RBC 3.77 L (4.63-6.08) M/mm3 Hgb 11.3 L (13.7-17.5) gm/dl Hct 35.8 L (40.1-51.0) % MCV 95.0 H (79.0-92.2) fl MCH 30.0 (25.7-32.2) pg MCHC 31.6 L (32.2-35.5) g/dl RDW Std Deviation 49.3 H (35.1-43.9) fL Plt Count 174 (163-337) K/mm3 MPV 9.4 (9.4-12.3) fl Neutrophils % (Manual) 72 H (40-60) % Band Neutrophils % 0 (0-10) % Lymphocytes % (Manual) 11 L (20-40) % Atypical Lymphs % 0 % Monocytes % (Manual) 13 H (2-10) % Eosinophils % (Manual) 4 (0.8-7.0) % Basophils % (Manual) 0 L (0.2-1.2) Platelet Estimate Adequate RBC Morph Comment Normal Sodium 138 (136-145) mEq/L Potassium 4.1 (3.5-5.1) mEq/L Chloride 100 (98-107) mEq/L Carbon Dioxide 28 (21-32) mEq/L Anion Gap 14.1 (5-15) BUN 30 H (7-18) mg/dL Creatinine 5.1 H (0.7-1.3) mg/dL Est Cr Clr Drug Dosing 12.05 mL/min Estimated GFR (MDRD) 11 (>60) mL/min BUN/Creatinine Ratio 5.9 L (14-18) Glucose 89 (70-99) mg/dL Calcium 8.6 (8.5-10.1) mg/dL Total Bilirubin 0.3 (0.2-1.0) mg/dL AST 16 (15-37) U/L ALT 16 (16-63) U/L Alkaline Phosphatase 63 (46-116) U/L Total Protein 6.4 (6.4-8.2) g/dl Albumin 3.3 L (3.4-5.0) g/dl Globulin 3.1 gm/dL Albumin/Globulin Ratio 1.1 (1-2) Urine Color Light yellow (Yellow) Urine Appearance Clear (Clear) Urine pH 8.5 H (5.0-8.0) Ur Specific [place] 1.015 (1.005-1.030) Urine Protein 1+ H (Negative) Urine Glucose (UA) Negative (Negative) Urine Ketones Negative (Negative) Urine Occult Blood 2+ H (Negative) Urine Nitrite Negative (Negative) Urine Bilirubin Negative (Negative) Urine Urobilinogen 0.2 (0.2-1.0) Ur Leukocyte Esterase Trace H (Negative) Urine RBC 20-30 H (0-5) /hpf Urine WBC 5-10 H (0-5) /hpf Urine WBC Clumps Rare (NOT SEEN) /hpf Ur Squamous Epith Cells 0-5 (0-5) /hpf Urine Bacteria Few (FEW) /hpf Urine Mucus Few (FEW) /hpf SARS-CoV-2 RNA (NATHANIEL) (NEGATIVE) 04/16/21 Range/Units 03:28 WBC (4.23-9.07) K/mm3 RBC (4.63-6.08) M/mm3 Hgb (13.7-17.5) gm/dl Hct (40.1-51.0) % MCV (79.0-92.2) fl MCH (25.7-32.2) pg MCHC (32.2-35.5) g/dl RDW Std Deviation (35.1-43.9) fL Plt Count (163-337) K/mm3 MPV (9.4-12.3) fl Neutrophils % (Manual) (40-60) % Band Neutrophils % (0-10) % Lymphocytes % (Manual) (20-40) % Atypical Lymphs % % Monocytes % (Manual) (2-10) % Eosinophils % (Manual) (0.8-7.0) % Basophils % (Manual) (0.2-1.2) Platelet Estimate RBC Morph Comment Sodium (136-145) mEq/L Potassium (3.5-5.1) mEq/L Chloride (98-107) mEq/L Carbon Dioxide (21-32) mEq/L Anion Gap (5-15) BUN (7-18) mg/dL Creatinine (0.7-1.3) mg/dL Est Cr Clr Drug Dosing mL/min Estimated GFR (MDRD) (>60) mL/min BUN/Creatinine Ratio (14-18) Glucose (70-99) mg/dL Calcium (8.5-10.1) mg/dL Total Bilirubin (0.2-1.0) mg/dL AST (15-37) U/L ALT (16-63) U/L Alkaline Phosphatase (46-116) U/L Total Protein (6.4-8.2) g/dl Albumin (3.4-5.0) g/dl Globulin gm/dL Albumin/Globulin Ratio (1-2) Urine Color (Yellow) Urine Appearance (Clear) Urine pH (5.0-8.0) Ur Specific [place] (1.005-1.030) Urine Protein (Negative) Urine Glucose (UA) (Negative) Urine Ketones (Negative) Urine Occult Blood (Negative) Urine Nitrite (Negative) Urine Bilirubin (Negative) Urine Urobilinogen (0.2-1.0) Ur Leukocyte Esterase (Negative) Urine RBC (0-5) /hpf Urine WBC (0-5) /hpf Urine WBC Clumps (NOT SEEN) /hpf Ur Squamous Epith Cells (0-5) /hpf Urine Bacteria (FEW) /hpf Urine Mucus (FEW) /hpf SARS-CoV-2 RNA (NATHANIEL) Negative (NEGATIVE) Meds: Medications Discontinued Medications Generic Name Dose Route Start Last Admin Trade Name Freq PRN Reason Stop Dose Admin Levofloxacin 750 mg 04/16/21 03:51 04/16/21 04:40 Levofloxacin 750 Mg Tab PO 04/16/21 03:52 750 mg ONETIME STA Administration - Re-Assessments/Exams Free Text/Narrative Re-Assessment/Exam: 04/16/21 02:47 As above, the patient was diagnosed with pyelonephritis about 2 weeks ago, and spent 1 week at [facility]. He then followed up with Dr. Haines this past , and was prescribed tramadol for a neck ache and headache that he had had for about 2 weeks. He took a dose on Thursday, which caused nausea and confusion. He was seen in this ER on Thursday, where a urinalysis was suggestive of a UTI. He was prescribed Bactrim. Since then, his dysuria, chills, and nausea have been resolved, but his neck aches, headaches, and confusion have continued. His family reports that he has had trouble finding the bathroom, could not find his way out of the bathroom, and had difficulty in figuring out how to get into a car. His confusion, however, has improved while here in the ED, such that at this time, he is grossly back to normal. His physical exam is unremarkable. I have ordered a work-up that includes a CBC, CMP, swab for the SARS-CoV-2 virus, and a urinalysis by quick catheter. A urine culture from 04/13/2021 is growing >100,000 CFU/ml of gram-negative rods, however, identification and susceptibility are still pending. If the patient's urinalysis tonight is clean, then, what ever bacteria is growing, appears to be susceptible to Bactrim, and I will leave him on it. If, however, his urinalysis tonight looks the same or worse than on Thursday, that it would indicate that the Bactrim is not effective, and I will need to switch him to something broad-spectrum to cover gram-negative rods. 04/16/21 02:53 Notified by Alma BELL that she was able to advance the quick catheter fairly far, but then had an obstruction, most likely his prostate, and was unable to get any urine. She will try a coud catheter. 04/16/21 03:51 The patient's CBC is remarkable for an H/H slightly depressed at 11.3/35.8, with remainder of his CBC being unremarkable. His CMP is remarkable for a BUN/Cr elevated at 30/5.1, and is otherwise unremarkable. His urinalysis is remarkable for 2+ occult blood with 20-30 RBCs, trace leukocyte esterase with 5-10 WBCs, nitrate negative with few bacteria, and 0-5 squamous epithelial cells. Results of his swab for the SARS-CoV-2 virus are still pending. There is only slight improvement in the patient's urinalysis compared to 04/13/2021, therefore I will treat him with a broad-spectrum antibiotic to cover gram-negative rods. The patient will be started on 750 mg of oral levofloxacin. 04/16/21 05:26 The patient's a swab for the SARS-CoV-2 virus is negative. 08/17/21 05:29 Test results discussed with the patient, his , and son. As above, the patient appears to have a UTI which is likely the cause of his confusion. He is already cognitively much better. He has been started on oral Levaquin, and I will submit a prescription for the patient to take 250 mg of Levaquin every morning, starting tomorrow morning, 04/17/2021, to complete a 5-day course. I would like the patient to follow-up with Dr. Strickland later this week, to check on the urine culture results. The patient can undergo his usually scheduled hemodialysis this morning. Departure - Departure Time of Disposition: 05:30 Disposition: Home, Self-Care 01 Condition: Good Clinical Impression: Confusion UTI (urinary tract infection) Qualifiers: Urinary tract infection type: site unspecified Hematuria presence: with hematuria Qualified Code(s): N39.0 - Urinary tract infection, site not specified - Discharge Information *PRESCRIPTION DRUG MONITORING PROGRAM REVIEWED*: Not Applicable *COPY OF PRESCRIPTION DRUG MONITORING REPORT IN PATIENT [place]: Not Applicable Prescriptions: levoFLOXacin [Levofloxacin] 1 tab PO QAM #5 tablet Instructions: Urinary Tract Infection, Adult, [id number], Urosepsis, Adult Referrals: Jasper Haines MD [Primary Care Provider] - Danial Cohen MD [Ordering Only Provider] - Mehran Maxwell MD [Ordering Only Provider] - Mala Flanagan MD [Ordering Only Provider] - Forms: ED Department Discharge Additional Instructions: You were seen in the emergency room for confusion on and off since , 04/11/2021. Work-up in the ER included several blood tests, a urinalysis, a swab for the SARS-CoV-2 virus, and an ECG. Your urinalysis indicated that you continue to have a urinary tract infection, despite being treated with Bactrim. The remainder of your work-up was unremarkable. Your test for COVID-19 was negative.. You have been started on the antibiotic levofloxacin (Levaquin), and a prescription for levofloxacin has been sent to the [facility], located in the [facility] grocery store. Take 1 tablet of levofloxacin every morning, starting tomorrow morning, 04/17/2021, as prescribed. Finish the entire prescription unless told otherwise by your doctor. Stop taking the Bactrim. We recommend that you throw the remaining tablets into the trash. Do not flush them down the toilet or pour them down the drain. You may attend dialysis as scheduled. Please follow-up with your PCP, Dr. Jasper Strickland, on or about , 04/18/2021, to have him check on your urine culture results. If any other problems, please do not hesitate to return to the ER. Sepsis Event Note (ED) - Focused Exam Vital Signs: Vital Signs Temp Pulse Resp BP Pulse Ox 04/16/21 03:00 80 18 118/73 96 04/16/21 01:55 36.6 C 84 18 136/74 96 - My Orders Last 24 Hours: My Active Orders 04/16/21 03:10 CULTURE URINE [MREF] Stat - Assessment/Plan Last 24 Hours: My Active Orders 04/16/21 03:10 CULTURE URINE [MREF] Stat
[2021-04-16 03:14] VITALS: BP 118/73; PULSE 80
[2021-04-16] MEDS ORDERED: Levofloxacin 750 MG Tab PO STA (03:51)
== END 2021-04-16 05:49 | disposition home or self-care (01) ==
LOC: JD.ED 01:26
DX: R41.0 Disorientation, unspecified (principal); N39.0 Urinary tract infection, site not specified; R31.9 Hematuria, unspecified; E78.00 Pure hypercholesterolemia, unspecified; I10 Essential (primary) hypertension; N40.0 Benign prostatic hyperplasia without lower urinary tract symptoms; M19.90 Unspecified osteoarthritis, unspecified site; Z87.891 Personal history of nicotine dependence; Z79.82 Long term (current) use of aspirin; Z79.899 Other long term (current) drug therapy; Z20.822 Contact with and (suspected) exposure to COVID-19
CPT/HCPCS: 36415; 80053; 81001; 85007; 85027; 87086; 99284; A9270; U0002; 51701; 99283

== ENCOUNTER 2021-05-20 19:22 | Emergency (ER) | payer MEDICARE, BC ==
[2021-05-20] MEDS ORDERED: Sodium Chloride 0.9% 10 ML Syringe FLUSH PRN (20:53)
--- NOTE | 2021-05-20 22:17 | EDM.PDOC ---
ED HPI GENERAL MEDICAL PROBLEM - General Chief Complaint: Genitourinary Problem Stated Complaint: POSSIBLE UTI Time Seen by Provider: 05/20/21 20:53 Source of Information: Reports: Patient, Family, RN Notes Reviewed History Limitations: Reports: No Limitations - History of Present Illness INITIAL COMMENTS - FREE TEXT/NARRATIVE: Patient is an 85-year-old female presenting to the emergency department with complaints of mild dysuria, low-grade fever, and some mild confusion earlier in the day. Patient reports that he has a history of urosepsis and was concerned that this may be recurring. Reports that he did have low-grade fever at home, but cannot recall the exact reading. He denies any abdominal pain, nausea, vomiting, or diarrhea. He has had no chest pain or shortness of breath. He reports that he is a chronic cough in the mornings, but this is not worse in any way. Patient is end-stage renal failure on dialysis. He is scheduled to dialyze tomorrow. - Related Data Allergies Allergy/AdvReac Type Severity Reaction Status Date / Time No Known Allergies Allergy Verified 05/20/21 20:14 Home Meds: Home Meds Aspirin 81 mg PO DAILY 09/30/15 [History] Metoprolol Succinate [Toprol XL] 50 mg PO BEDTIME 09/30/15 [History] Dutasteride [Avodart] 0.5 mg PO DAILY 05/06/19 [History] allopurinoL [Zyloprim] 200 mg PO DAILY 05/06/19 [History] Simvastatin 5 mg PO DAILY 09/15/20 [History] Midodrine 10 mg PO ASDIRECTED 03/24/21 [History] Sulfamethoxazole/Trimethoprim [Bactrim 400-80 MG] 1 each PO BID #14 tablet 04/13/21 [Rx] levoFLOXacin [Levofloxacin] 1 tab PO QAM #5 tablet 04/16/21 [Rx] Past Medical History HEENT History: Reports: Hard of Hearing, Impaired Vision (wears glasses) Other HEENT History: wears glasses Cardiovascular History: Reports: Afib (paroxysmal), Arrhythmia (sick sinus syndrome), High Cholesterol, Hypertension Other Cardiovascular History: sick sinus syndrome Genitourinary History: Reports: BPH, Dialysis (Q , , Sa x 2018) Other Genitourinary History: enlarged prostate--he states he dribbles urine often during the night. He believes he is down to passing about 2 tablespoons of urine only per day. Has been a hemodialysis patient for 1 year. Musculoskeletal History: Reports: Gout (suspected, not confirmed), Osteoarthritis Endocrine/Metabolic History: Reports: Diabetes, Type II Hematologic History: Reports: Anemia, Iron Deficiency Immunologic History: Reports: Immunosuppression Oncologic (Cancer) History: Reports: Bladder (s/p TURBT, CTx) - Past Surgical History HEENT Surgical History: Reports: Cataract Surgery (bilateral) Cardiovascular Surgical History: Reports: Pacer, Vascular Surgery (RUE AVF) GI Surgical History: Reports: Colonoscopy (x 1 or 2) Musculoskeletal Surgical History: Reports: Knee Replacement (right) Social & Family History - Family History Family Medical History: No Pertinent Family History - Caffeine Use Caffeine Use: Reports: Coffee - Living Situation & Occupation Living situation: Reports: , with Spouse Occupation: Retired ED ROS GENERAL - Review of Systems Review Of Systems: Comprehensive ROS is negative, except as noted in HPI. ED EXAM, GENERAL - Physical Exam Exam: See Below Exam Limited By: No Limitations General Appearance: Alert, WD/WN, No Apparent Distress Respiratory/Chest: No Respiratory Distress, Lungs Clear, Normal Breath Sounds, No Accessory Muscle Use, Chest Non-Tender Cardiovascular: Normal Peripheral Pulses, Regular Rate, Rhythm, No Edema, No Gallop, No JVD, No Murmur, No Rub GI/Abdominal: Normal Bowel Sounds, Soft, Non-Tender, No Organomegaly, No Distention, No Abnormal Bruit, No Mass Neurological: Alert, Oriented, CN II-XII Intact, Normal Cognition, Normal Gait, Normal Reflexes, No Motor/Sensory Deficits Psychiatric: Normal Affect, Normal Mood Skin Exam: Warm, Dry, Intact, Normal Color, No Rash Course - Vital Signs Last Recorded V/S: Last Vital Signs Temp 100.5 F 05/20/21 20:09 Pulse 78 05/20/21 22:28 Resp 16 05/20/21 22:28 BP 135/82 05/20/21 22:28 Pulse Ox 100 05/20/21 22:28 - Orders/Labs/Meds Orders: Active Orders 24 hr Category Date Time Status Cardiac Monitoring [RC] CONTINUOUS Care 05/20/21 20:53 Active Chest 1V Frontal [CR] Stat Exams 05/20/21 20:53 Taken BLOOD CULTURE [MREF] Stat Lab 05/20/21 21:19 Received BLOOD CULTURE [MREF] Stat Lab 05/20/21 21:26 Received CULTURE URINE [MREF] Stat Lab 05/20/21 23:12 Ordered Sodium Chloride 0.9% [Saline Flush] Med 05/20/21 20:53 Active 10 ml FLUSH ASDIRECTED PRN Blood Culture x2 Reflex Set [OM.PC] Stat Oth 05/20/21 20:53 Ordered Saline Lock Insert [OM.PC] Stat Oth 05/20/21 20:53 Ordered Medication Orders Sodium Chloride (Sodium Chloride 0.9% 10 Ml Syringe) 10 ml FLUSH ASDIRECTED PRN PRN Reason: Keep Vein Open Labs: Laboratory Tests 05/20/21 05/20/21 05/20/21 Range/Units 20:36 21:19 21:19 WBC 10.04 H (4.23-9.07) K/mm3 RBC 3.80 L (4.63-6.08) M/mm3 Hgb 11.2 L (13.7-17.5) gm/dl Hct 36.5 L (40.1-51.0) % MCV 96.1 H (79.0-92.2) fl MCH 29.5 (25.7-32.2) pg MCHC 30.7 L (32.2-35.5) g/dl RDW Std Deviation 52.4 H (35.1-43.9) fL Plt Count 157 L (163-337) K/mm3 MPV 10.5 (9.4-12.3) fl Neutrophils % (Manual) 82 H (40-60) % Band Neutrophils % 1 (0-10) % Lymphocytes % (Manual) 9 L (20-40) % Atypical Lymphs % 0 % Monocytes % (Manual) 5 (2-10) % Eosinophils % (Manual) 3 (0.8-7.0) % Basophils % (Manual) 0 L (0.2-1.2) Platelet Estimate Adequate Hypochromasia 1+ slight Anisocytosis 1+ slight Ovalocytes 1+ slight RBC Morph Comment Not Reportable PT 10.1 (9.7-12.0) SECONDS INR < 0.93 APTT 29.3 (21.7-31.4) SECONDS Sodium (136-145) mEq/L Potassium (3.5-5.1) mEq/L Chloride (98-107) mEq/L Carbon Dioxide (21-32) mEq/L Anion Gap (5-15) BUN (7-18) mg/dL Creatinine (0.7-1.3) mg/dL Est Cr Clr Drug Dosing mL/min Estimated GFR (MDRD) (>60) mL/min BUN/Creatinine Ratio (14-18) Glucose (70-99) mg/dL Lactic Acid (0.4-2.0) mmol/L Calcium (8.5-10.1) mg/dL Total Bilirubin (0.2-1.0) mg/dL AST (15-37) U/L ALT (16-63) U/L Alkaline Phosphatase (46-116) U/L C-Reactive Protein (<1.0) mg/dL Total Protein (6.4-8.2) g/dl Albumin (3.4-5.0) g/dl Globulin gm/dL Albumin/Globulin Ratio (1-2) Urine Color Yellow (Yellow) Urine Appearance Clear (Clear) Urine pH 8.5 H (5.0-8.0) Ur Specific [place] 1.020 (1.005-1.030) Urine Protein 2+ H (Negative) Urine Glucose (UA) Negative (Negative) Urine Ketones Negative (Negative) Urine Occult Blood 2+ H (Negative) Urine Nitrite Negative (Negative) Urine Bilirubin Negative (Negative) Urine Urobilinogen 0.2 (0.2-1.0) Ur Leukocyte Esterase Negative (Negative) Urine RBC 30-40 H (0-5) /hpf Urine WBC 0-5 (0-5) /hpf Ur Squamous Epith Cells 0-5 (0-5) /hpf Urine Bacteria Few (FEW) /hpf Urine Mucus Few (FEW) /hpf SARS-CoV-2 RNA (NATHANIEL) (NEGATIVE) 05/20/21 05/20/21 05/20/21 Range/Units 21:19 21:19 22:05 WBC (4.23-9.07) K/mm3 RBC (4.63-6.08) M/mm3 Hgb (13.7-17.5) gm/dl Hct (40.1-51.0) % MCV (79.0-92.2) fl MCH (25.7-32.2) pg MCHC (32.2-35.5) g/dl RDW Std Deviation (35.1-43.9) fL Plt Count (163-337) K/mm3 MPV (9.4-12.3) fl Neutrophils % (Manual) (40-60) % Band Neutrophils % (0-10) % Lymphocytes % (Manual) (20-40) % Atypical Lymphs % % Monocytes % (Manual) (2-10) % Eosinophils % (Manual) (0.8-7.0) % Basophils % (Manual) (0.2-1.2) Platelet Estimate Hypochromasia Anisocytosis Ovalocytes RBC Morph Comment PT (9.7-12.0) SECONDS INR APTT (21.7-31.4) SECONDS Sodium 136 (136-145) mEq/L Potassium 4.9 (3.5-5.1) mEq/L Chloride 101 (98-107) mEq/L Carbon Dioxide 25 (21-32) mEq/L Anion Gap 14.9 (5-15) BUN 52 H (7-18) mg/dL Creatinine 4.7 H (0.7-1.3) mg/dL Est Cr Clr Drug Dosing 13.07 mL/min Estimated GFR (MDRD) 12 (>60) mL/min BUN/Creatinine Ratio 11.1 L (14-18) Glucose 116 H (70-99) mg/dL Lactic Acid 1.4 (0.4-2.0) mmol/L Calcium 8.9 (8.5-10.1) mg/dL Total Bilirubin 0.3 (0.2-1.0) mg/dL AST 17 (15-37) U/L ALT 22 (16-63) U/L Alkaline Phosphatase 74 (46-116) U/L C-Reactive Protein 4.0 H* (<1.0) mg/dL Total Protein 6.8 (6.4-8.2) g/dl Albumin 3.5 (3.4-5.0) g/dl Globulin 3.3 gm/dL Albumin/Globulin Ratio 1.1 (1-2) Urine Color (Yellow) Urine Appearance (Clear) Urine pH (5.0-8.0) Ur Specific [place] (1.005-1.030) Urine Protein (Negative) Urine Glucose (UA) (Negative) Urine Ketones (Negative) Urine Occult Blood (Negative) Urine Nitrite (Negative) Urine Bilirubin (Negative) Urine Urobilinogen (0.2-1.0) Ur Leukocyte Esterase (Negative) Urine RBC (0-5) /hpf Urine WBC (0-5) /hpf Ur Squamous Epith Cells (0-5) /hpf Urine Bacteria (FEW) /hpf Urine Mucus (FEW) /hpf SARS-CoV-2 RNA (NATHANIEL) Negative (NEGATIVE) Meds: Medications Generic Name Dose Route Start Last Admin Trade Name Freq PRN Reason Stop Dose Admin Sodium Chloride 10 ml 05/20/21 20:53 Sodium Chloride 0.9% 10 Ml Syringe FLUSH ASDIRECTED PRN Keep Vein Open - Re-Assessments/Exams Free Text/Narrative Re-Assessment/Exam: Patient is an 85-year-old male presenting to the emergency department with concerns of possible urinary tract infection. He reports history of urosepsis. States he had some mild dysuria today as well as a low-grade fever and some confusion earlier in the day. States that he feels well at this time. On arrival to ER, temperature was 100.5. I did recheck temperature during my exam and was 99.0. Exam is unremarkable. Lung sounds are clear. I have ordered septic work-up and Covid test. 05/20/21 22:28 Hematology significant for WBC 10.04, hemoglobin 7.2, BUN 52, creatinine 4.7, CRP 4.0. Lactic acid is normal at 1.4. Urinalysis is negative for infection. Chest x-ray shows no evidence of pneumonia. Covid test is pending. 05/20/21 23:14 Covid test is negative. Results discussed with patient and his . They are requesting urine to be sent for culture. I have ordered urine culture. Discussed that they will be notified if the blood cultures or urine cultures to grow out any bacteria. Patient will be discharged home. Discussed return p recautions. Discharge instructions as documented. Departure - Departure Time of Disposition: 23:15 Disposition: Home, Self-Care 01 Condition: Good Clinical Impression: Dysuria - Discharge Information *PRESCRIPTION DRUG MONITORING PROGRAM REVIEWED*: No *COPY OF PRESCRIPTION DRUG MONITORING REPORT IN PATIENT SAVANAH: No Instructions: Dysuria Referrals: Jasper Haines MD [Primary Care Provider] - Forms: ED Department Discharge Additional Instructions: You were seen in the emergency department today for evaluation of painful urination, fever, and some confusion earlier today. Work-up included blood work (including blood cultures), chest x-ray, urinalysis(including urine cultures) and Covid testing. Results of the work-up were found to be normal. There is no evidence of urinary tract infection, or pneumonia. Covid test was negative. You will be notified of the urine and blood culture results should they grow out any bacteria. If you should experience any new or worsening symptoms, please do not hesitate to return to the emergency department for reevaluation. Sepsis Event Note (ED) - Evaluation Sepsis Screening Result: No Definite Risk - Focused Exam Vital Signs: Vital Signs Temp Pulse Resp BP Pulse Ox 05/20/21 22:28 78 16 135/82 100 05/20/21 20:09 100.5 F 89 20 142/84 H 95 - My Orders Last 24 Hours: My Active Orders 05/20/21 20:53 Cardiac Monitoring [RC] CONTINUOUS Chest 1V Frontal [CR] Stat Sodium Chloride 0.9% [Saline Flush] 10 ml FLUSH ASDIRECTED PRN Blood Culture x2 Reflex Set [OM.PC] Stat Saline Lock Insert [OM.PC] Stat 05/20/21 21:19 BLOOD CULTURE [MREF] Stat 05/20/21 21:26 BLOOD CULTURE [MREF] Stat 05/20/21 23:12 CULTURE URINE [MREF] Stat - Assessment/Plan Last 24 Hours: My Active Orders 05/20/21 20:53 Cardiac Monitoring [RC] CONTINUOUS Chest 1V Frontal [CR] Stat Sodium Chloride 0.9% [Saline Flush] 10 ml FLUSH ASDIRECTED PRN Blood Culture x2 Reflex Set [OM.PC] Stat Saline Lock Insert [OM.PC] Stat 05/20/21 21:19 BLOOD CULTURE [MREF] Stat 05/20/21 21:26 BLOOD CULTURE [MREF] Stat 05/20/21 23:12 CULTURE URINE [MREF] Stat
[2021-05-21 00:36] VITALS: BP 143/84; PULSE 79
--- NOTE | 2021-05-21 08:01 | CR ---
Chest: Portable view of the chest was obtained. Comparison: Prior chest x-ray of 04/13/21. Heart size and mediastinum are within normal limits. Lungs are clear with no acute parenchymal change. Bichamber pacemaker is noted. Bony structures show nothing acute. Impression: 1. Nothing acute is seen on portable chest x-ray. Diagnostic code #2
== END 2021-05-20 23:55 | disposition home or self-care (01) ==
LOC: JD.ED 19:22
DX: R30.0 Dysuria (principal); R50.9 Fever, unspecified; I10 Essential (primary) hypertension; I48.91 Unspecified atrial fibrillation; E11.9 Type 2 diabetes mellitus without complications; M10.9 Gout, unspecified; Z20.822 Contact with and (suspected) exposure to COVID-19; Z79.82 Long term (current) use of aspirin; Z79.899 Other long term (current) drug therapy
CPT/HCPCS: 36415; 71045; 80053; 81001; 83605; 85007; 85027; 85610; 85730; 86140; 87040; 87086; 87088; 87186; 99285; U0002; 99283

== ENCOUNTER 2021-05-22 17:47 | Emergency (ER) | payer MEDICARE, BC ==
[2021-05-22] MEDS ORDERED: Sodium Chloride 0.9% 10 ML Syringe FLUSH PRN (18:28)
[2021-05-22] MEDS ORDERED: Ondansetron 4 MG/2 ML SDV IVPUSH ONE (18:39)
--- NOTE | 2021-05-22 19:51 | EDM.PDOC ---
ED HPI GENERAL MEDICAL PROBLEM - General Chief Complaint: Possible Sepsis Stated Complaint: WEAK,NAUSEA FEVER Time Seen by Provider: 05/22/21 18:28 Source of Information: Reports: Patient, Family (), Old Records (visit from 2 days ago), RN Notes Reviewed History Limitations: Reports: No Limitations - History of Present Illness INITIAL COMMENTS - FREE TEXT/NARRATIVE: Patient is an 85-year-old male who presents to the ER with his for the evaluation of his ongoing nausea/fever/urinary discomfort. Patient was seen in this ER 2 days ago, was assessed had multiple labs taken, and everything was essentially within normal limits and he was discharged home. Preliminary report on the urine culture did grow out Enterococcus species. No final sensitivities have been given at this time. He states he is still not feeling well, and is complaining of a temperature as high as 100.8 F at home. He has been using Tylenol for management of this, it seems to help a little bit but it does not really make him feel much better. States that he does have a history of getting quite a few UTIs and urosepsis as well. Patient is also on dialysis attended dialysis yesterday, states he feels generally lethargic after dialysis runs. But he states he feels a little bit better today after this. is concerned because the patient is weakening so much that she cannot transfer him by herself. Patient's not had any ongoing vomiting or diarrhea. states he has had somewhat of a cough but nothing that has been productive. Patient's COVID-19 screen was negative 2 days ago as well. Primary care provider is Dr. Strickland and the patient's case packer and sealer is Dr. Cohen. - Related Data Allergies Allergy/AdvReac Type Severity Reaction Status Date / Time No Known Allergies Allergy Verified 05/22/21 18:03 Home Meds: Home Meds Aspirin 81 mg PO DAILY 09/30/15 [History] Metoprolol Succinate [Toprol XL] 50 mg PO BEDTIME 09/30/15 [History] Dutasteride [Avodart] 0.5 mg PO DAILY 05/06/19 [History] allopurinoL [Zyloprim] 200 mg PO DAILY 05/06/19 [History] Simvastatin 5 mg PO DAILY 09/15/20 [History] Midodrine 10 mg PO ASDIRECTED 03/24/21 [History] Cefdinir [Omnicef] 300 mg PO Q48H #5 cap 05/22/21 [Rx] Past Medical History HEENT History: Reports: Hard of Hearing, Impaired Vision Other HEENT History: wears glasses Cardiovascular History: Reports: Afib, Arrhythmia, High Cholesterol, Hypertension Other Cardiovascular History: sick sinus syndrome Genitourinary History: Reports: BPH, Dialysis Other Genitourinary History: enlarged prostate--he states he dribbles urine often during the night. He believes he is down to passing about 2 tablespoons of urine only per day. Has been a hemodialysis patient for 1 year. Musculoskeletal History: Reports: Gout, Osteoarthritis Other Musculoskeletal History: right knee arthroplasty 12/2020 Endocrine/Metabolic History: Reports: Diabetes, Type II Hematologic History: Reports: Anemia, Iron Deficiency Immunologic History: Reports: Immunosuppression Oncologic (Cancer) History: Reports: Bladder Other Oncologic History: bladder 2014 - Past Surgical History HEENT Surgical History: Reports: Cataract Surgery Cardiovascular Surgical History: Reports: Pacer, Vascular Surgery GI Surgical History: Reports: Colonoscopy Male Surgical History: Reports: TURBT-Transurethral Resection of Bladder Tumor Musculoskeletal Surgical History: Reports: Knee Replacement Social & Family History - Family History Family Medical History: No Pertinent Family History - Tobacco Use Tobacco Use Status *Q: Former Tobacco User Used Tobacco, but Quit: Yes Month/Year Tobacco Last Used: 45 years ago - Caffeine Use Caffeine Use: Reports: Coffee Caffeine Use Comment: 1 cup per day - Recreational Drug Use Recreational Drug Use: No - Living Situation & Occupation Living situation: Reports: , with Spouse Occupation: Retired ED ROS GENERAL - Review of Systems Review Of Systems: Comprehensive ROS is negative, except as noted in HPI. ED EXAM, SEPSIS - Physical Exam Exam: See Below Exam Limited By: No Limitations General Appearance: Alert, WD/WN, No Apparent Distress Respiratory/Chest: No Respiratory Distress, Lungs Clear, Normal Breath Sounds, No Accessory Muscle Use, Chest Non-Tender Cardiovascular: Normal Peripheral Pulses, Regular Rate, Rhythm, No Edema Peripheral Pulses: 2+: Radial (L), Radial (R) Extremities: Normal Inspection, Normal Capillary Refill Neurological: Alert, Oriented, Normal Cognition, No Motor/Sensory Deficits Psychiatric: Normal Affect, Normal Mood Skin: Warm, Dry, Intact, Normal Color, No Rash Course - Vital Signs Last Recorded V/S: Last Vital Signs Temp 98.7 F 05/22/21 17:59 Pulse 106 H 05/22/21 17:59 Resp 18 05/22/21 17:59 BP Pulse Ox 93 L 05/22/21 17:59 - Orders/Labs/Meds Orders: Active Orders 24 hr Category Date Time Status Chest 2V [CR] Stat Exams 05/22/21 18:28 Taken BLOOD CULTURE [MREF] Stat Lab 05/22/21 18:55 Received BLOOD CULTURE [MREF] Stat Lab 05/22/21 19:08 Received CULTURE URINE [MREF] Urgent Lab 05/22/21 21:12 Ordered Sodium Chloride 0.9% [Saline Flush] Med 05/22/21 18:28 Active 10 ml FLUSH ASDIRECTED PRN Blood Culture x2 Reflex Set [OM.PC] Stat Oth 05/22/21 18:28 Ordered Isolation [COMM] Routine Oth 05/22/21 18:31 Ordered Saline Lock Insert [OM.PC] Stat Oth 05/22/21 18:28 Ordered Medication Orders Sodium Chloride (Sodium Chloride 0.9% 10 Ml Syringe) 10 ml FLUSH ASDIRECTED PRN PRN Reason: Keep Vein Open Last Admin: 05/22/21 19:40 Dose: 10 ml Documented by: PATRIC Labs: Laboratory Tests 05/22/21 05/22/21 05/22/21 Range/Units 18:40 18:55 18:55 WBC (4.23-9.07) K/mm3 RBC (4.63-6.08) M/mm3 Hgb (13.7-17.5) gm/dl Hct (40.1-51.0) % MCV (79.0-92.2) fl MCH (25.7-32.2) pg MCHC (32.2-35.5) g/dl RDW Std Deviation (35.1-43.9) fL Plt Count (163-337) K/mm3 MPV (9.4-12.3) fl Neutrophils % (Manual) (40-60) % Band Neutrophils % (0-10) % Lymphocytes % (Manual) (20-40) % Atypical Lymphs % % Monocytes % (Manual) (2-10) % Eosinophils % (Manual) (0.8-7.0) % Basophils % (Manual) (0.2-1.2) Platelet Estimate RBC Morph Comment PT (9.7-12.0) SECONDS INR Sodium 139 (136-145) mEq/L Potassium 4.8 (3.5-5.1) mEq/L Chloride 99 (98-107) mEq/L Carbon Dioxide 27 (21-32) mEq/L Anion Gap 17.8 H (5-15) BUN 38 H (7-18) mg/dL Creatinine 4.1 H (0.7-1.3) mg/dL Est Cr Clr Drug Dosing 14.98 mL/min Estimated GFR (MDRD) 14 (>60) mL/min BUN/Creatinine Ratio 9.3 L (14-18) Glucose 102 H (70-99) mg/dL Lactic Acid 1.8 (0.4-2.0) mmol/L Calcium 9.0 (8.5-10.1) mg/dL Total Bilirubin 0.5 (0.2-1.0) mg/dL AST 32 (15-37) U/L ALT 24 (16-63) U/L Alkaline Phosphatase 71 (46-116) U/L C-Reactive Protein 12.9 H* (<1.0) mg/dL Total Protein 7.1 (6.4-8.2) g/dl Albumin 3.4 (3.4-5.0) g/dl Globulin 3.7 gm/dL Albumin/Globulin Ratio 0.9 L (1-2) Urine Color (Yellow) Urine Appearance (Clear) Urine pH (5.0-8.0) Ur Specific [place] (1.005-1.030) Urine Protein (Negative) Urine Glucose (UA) (Negative) Urine Ketones (Negative) Urine Occult Blood (Negative) Urine Nitrite (Negative) Urine Bilirubin (Negative) Urine Urobilinogen (0.2-1.0) Ur Leukocyte Esterase (Negative) Urine RBC (0-5) /hpf Urine WBC (0-5) /hpf Ur Squamous Epith Cells (0-5) /hpf Urine Bacteria (FEW) /hpf Urine Mucus (FEW) /hpf SARS-CoV-2 RNA (NATHANIEL) Negative (NEGATIVE) 05/22/21 05/22/21 05/22/21 Range/Units 19:08 19:08 20:25 WBC 9.89 H (4.23-9.07) K/mm3 RBC 3.79 L (4.63-6.08) M/mm3 Hgb 11.2 L (13.7-17.5) gm/dl Hct 36.3 L (40.1-51.0) % MCV 95.8 H (79.0-92.2) fl MCH 29.6 (25.7-32.2) pg MCHC 30.9 L (32.2-35.5) g/dl RDW Std Deviation 51.6 H (35.1-43.9) fL Plt Count 168 (163-337) K/mm3 MPV 10.1 (9.4-12.3) fl Neutrophils % (Manual) 80 H (40-60) % Band Neutrophils % 1 (0-10) % Lymphocytes % (Manual) 5 L (20-40) % Atypical Lymphs % 0 % Monocytes % (Manual) 11 H (2-10) % Eosinophils % (Manual) 3 (0.8-7.0) % Basophils % (Manual) 0 L (0.2-1.2) Platelet Estimate Adequate RBC Morph Comment Normal PT 10.4 (9.7-12.0) SECONDS INR 0.93 Sodium (136-145) mEq/L Potassium (3.5-5.1) mEq/L Chloride (98-107) mEq/L Carbon Dioxide (21-32) mEq/L Anion Gap (5-15) BUN (7-18) mg/dL Creatinine (0.7-1.3) mg/dL Est Cr Clr Drug Dosing mL/min Estimated GFR (MDRD) (>60) mL/min BUN/Creatinine Ratio (14-18) Glucose (70-99) mg/dL Lactic Acid (0.4-2.0) mmol/L Calcium (8.5-10.1) mg/dL Total Bilirubin (0.2-1.0) mg/dL AST (15-37) U/L ALT (16-63) U/L Alkaline Phosphatase (46-116) U/L C-Reactive Protein (<1.0) mg/dL Total Protein (6.4-8.2) g/dl Albumin (3.4-5.0) g/dl Globulin gm/dL Albumin/Globulin Ratio (1-2) Urine Color Yellow (Yellow) Urine Appearance Slt cloudy H (Clear) Urine pH 8.5 H (5.0-8.0) Ur Specific [place] 1.020 (1.005-1.030) Urine Protein 2+ H (Negative) Urine Glucose (UA) Negative (Negative) Urine Ketones Negative (Negative) Urine Occult Blood 2+ H (Negative) Urine Nitrite Negative (Negative) Urine Bilirubin Negative (Negative) Urine Urobilinogen 0.2 (0.2-1.0) Ur Leukocyte Esterase Negative (Negative) Urine RBC 30-40 H (0-5) /hpf Urine WBC 0-5 (0-5) /hpf Ur Squamous Epith Cells 0-5 (0-5) /hpf Urine Bacteria Few (FEW) /hpf Urine Mucus Few (FEW) /hpf SARS-CoV-2 RNA (NATHANIEL) (NEGATIVE) Meds: Medications Generic Name Dose Route Start Last Admin Trade Name Freq PRN Reason Stop Dose Admin Sodium Chloride 10 ml 05/22/21 18:28 05/22/21 19:40 Sodium Chloride 0.9% 10 Ml Syringe FLUSH 10 ml ASDIRECTED PRN Administration Keep Vein Open Discontinued Medications Generic Name Dose Route Start Last Admin Trade Name Freq PRN Reason Stop Dose Admin Ceftriaxone Sodium 2 gm/ 100 mls @ 200 mls/hr 05/22/21 21:00 05/22/21 21:13 Sodium Chloride IV 05/22/21 21:29 200 mls/hr ONETIME ONE Administration Ondansetron HCl 4 mg 05/22/21 18:39 05/22/21 19:40 Ondansetron 4 Mg/2 Ml Sdv IVPUSH 05/22/21 18:40 4 mg ONETIME ONE Administration - Re-Assessments/Exams Free Text/Narrative Re-Assessment/Exam: 05/22/21 19:50 Patient presents to the ER for evaluation of his ongoing multitude of symptoms. No septic work-up will be obtained for ongoing evaluation. Patient still feeling nauseous so I did order 4 mg Zofran for initial management. Should the patient necessitate hospitalization, he is a dialysis patient and would need transfer to [place] for ongoing care. Patient's doctors are at [facility]. So we will check there first. 05/22/21 20:45 Patient's laboratory evaluation demonstrates a white count elevated at 9.89 with 80% neutrophils on the auto differential. Metabolic panel is impressive for an elevated anion gap at 17.8, creatinine elevated at 4.1 and a GFR low at 14. This is however somewhat better than his kidney function resulted 2 days ago. BUN also is elevated today at 38 but lower than it was a few days ago. Lactic acid is within normal limits. CRP did elevate to 12.9. Patient's coronavirus screen and flu screen were negative for today's purposes. Urinalysis is still pending. 05/22/21 21:50 Urinalysis was grossly positive for blood in the urine. However again 2 days ago it was growing out an Enterococcus species. We did give him 2 g Rocephin in the ER, the patient is feeling much better right now, and would rather not be hospitalized if he did not have to. This seems okay with me he was ambulated about the ER and did pretty well. We will go ahead and get oral Omnicef ordered for him. Dosing will be 1 tablet every 48 hours after dialysis runs x5 doses. Departure - Departure Time of Disposition: 21:51 Disposition: Home, Self-Care 01 Condition: Good Clinical Impression: UTI (urinary tract infection) due to Enterococcus, Weakness - Discharge Information *PRESCRIPTION DRUG MONITORING PROGRAM REVIEWED*: No *COPY OF PRESCRIPTION DRUG MONITORING REPORT IN PATIENT SAVANAH: No Prescriptions: Cefdinir [Omnicef] 300 mg PO Q48H #5 cap Instructions: Urinary Tract Infection, Adult, [id number] Referrals: Jasper Haines MD [Primary Care Provider] - Forms: ED Department Discharge Additional Instructions: You have been evaluated in the ED for your weakness and ongoing urinary symptoms. Your urinalysis did demonstrate some blood within your urine again. Your urine culture from your previous visit did grow out an Enterococcus species, and you have been started on antibiotics for this. Your first dose of IV antibiotics was given in the ER, you were given 2 g Rocephin at this time. Oral dosing for home will be 1 tablet every 48 hours after your dialysis runs. This medication was electronically [facility] to the [place] [facility] Please increase your oral fluid intake and try to stay adequately hydrated. If you start to feel weak much at all again at home, please do not hesitate to return for further evaluation and management. Please return to the ED if your symptoms change or worsen. Sepsis Event Note (ED) - Evaluation Sepsis Screening Result: No Definite Risk - Focused Exam Vital Signs: Vital Signs Temp Pulse Resp Pulse Ox 05/22/21 17:59 98.7 F 106 H 18 93 L - My Orders Last 24 Hours: My Active Orders 05/22/21 18:28 Chest 2V [CR] Stat Sodium Chloride 0.9% [Saline Flush] 10 ml FLUSH ASDIRECTED PRN Blood Culture x2 Reflex Set [OM.PC] Stat Saline Lock Insert [OM.PC] Stat 05/22/21 18:31 Isolation [COMM] Routine 05/22/21 18:55 BLOOD CULTURE [MREF] Stat 05/22/21 19:08 BLOOD CULTURE [MREF] Stat 05/22/21 21:12 CULTURE URINE [MREF] Urgent - Assessment/Plan Last 24 Hours: My Active Orders 05/22/21 18:28 Chest 2V [CR] Stat Sodium Chloride 0.9% [Saline Flush] 10 ml FLUSH ASDIRECTED PRN Blood Culture x2 Reflex Set [OM.PC] Stat Saline Lock Insert [OM.PC] Stat 05/22/21 18:31 Isolation [COMM] Routine 05/22/21 18:55 BLOOD CULTURE [MREF] Stat 05/22/21 19:08 BLOOD CULTURE [MREF] Stat 05/22/21 21:12 CULTURE URINE [MREF] Urgent
[2021-05-22] MEDS ORDERED: cefTRIAXone 2 GM in Sodium Chloride 0.9% 100 ML IV ONE (21:00)
[2021-05-22 22:39] VITALS: BP 121/83; PULSE 80
--- NOTE | 2021-05-23 06:55 | CR ---
Chest: 2 views of the chest were obtained. Comparison: Prior chest x-ray of 05/20/21. Heart size and mediastinum are within normal limits. Bichamber pacemaker is noted. Lungs are clear with no acute parenchymal change. Bony structures show nothing acute. Impression: 1. Nothing acute is seen on 2 view chest x-ray. Diagnostic code #2
== END 2021-05-22 22:20 | disposition home or self-care (01) ==
LOC: JD.ED 17:47
DX: N39.0 Urinary tract infection, site not specified (principal); I48.91 Unspecified atrial fibrillation; E78.00 Pure hypercholesterolemia, unspecified; I10 Essential (primary) hypertension; E11.9 Type 2 diabetes mellitus without complications; M10.9 Gout, unspecified; Z79.899 Other long term (current) drug therapy; Z79.82 Long term (current) use of aspirin; Z87.891 Personal history of nicotine dependence; Z20.822 Contact with and (suspected) exposure to COVID-19
CPT/HCPCS: 36415; 71046; 80053; 81001; 83605; 85007; 85027; 85610; 86140; 87040; 87086; 87088; 87186; 87804; 96365; 96375; 99283; J0696; J2405; U0002

== ENCOUNTER 2021-05-24 03:20 | Emergency (ER) | payer MEDICARE, BC ==
[2021-05-24 03:28] VITALS: BP 141/82; PULSE 67
--- NOTE | 2021-05-24 03:49 | EDM.PDOC ---
ED HPI GENERAL MEDICAL PROBLEM - General Chief Complaint: Fever Stated Complaint: [facility] Time Seen by Provider: 05/24/21 03:48 - History of Present Illness INITIAL COMMENTS - FREE TEXT/NARRATIVE: 85-year-old male presents to the emergency room with continued fevers. Patient was seen here 4 days ago and was evaluated for this cultures were obtained. Preliminary testing was all negative Covid was negative. He was seen here again 2 days ago with a similar complaint he was treated for his UTI. Cultures and sensitivities not available. This morning again he returns with a similar complaint temperatures to 101.7. Now cultures and sensitivities available growing out Enterococcus from his urine. The patient still makes urine is on hemodialysis. His last round of dialysis was yesterday. He has no other complaints at this time Treatments VENEER SPLICER: Reports: IV/IO, Other (see below) Other Treatments VENEER SPLICER: Zofran 4mg - Related Data Allergies Allergy/AdvReac Type Severity Reaction Status Date / Time No Known Allergies Allergy Verified 05/22/21 18:03 Home Meds: Home Meds Aspirin 81 mg PO DAILY 09/30/15 [History] Metoprolol Succinate [Toprol XL] 50 mg PO BEDTIME 09/30/15 [History] Dutasteride [Avodart] 0.5 mg PO DAILY 05/06/19 [History] allopurinoL [Zyloprim] 200 mg PO DAILY 05/06/19 [History] Simvastatin 5 mg PO DAILY 09/15/20 [History] Midodrine 10 mg PO ASDIRECTED 03/24/21 [History] Cefdinir [Omnicef] 300 mg PO Q48H #5 cap 05/22/21 [Rx] Levofloxacin [Levaquin] 500 mg PO ASDIRECTED #3 tablet 05/24/21 [Rx] Past Medical History HEENT History: Reports: Hard of Hearing, Impaired Vision Other HEENT History: wears glasses Cardiovascular History: Reports: Afib, Arrhythmia, High Cholesterol, Hypertension Other Cardiovascular History: sick sinus syndrome Respiratory History: Reports: None Gastrointestinal History: Reports: None Genitourinary History: Reports: BPH, Dialysis Other Genitourinary History: enlarged prostate--he states he dribbles urine often during the night. He believes he is down to passing about 2 tablespoons of urine only per day. Has been a hemodialysis patient for 1 year. Musculoskeletal History: Reports: Gout, Osteoarthritis Other Musculoskeletal History: right knee arthroplasty 12/2020 Neurological History: Reports: None Psychiatric History: Reports: None Endocrine/Metabolic History: Reports: Diabetes, Type II Hematologic History: Reports: Anemia, Iron Deficiency Immunologic History: Reports: Immunosuppression Oncologic (Cancer) History: Reports: Bladder Other Oncologic History: bladder 2015 Dermatologic History: Reports: None - Past Surgical History Head Surgeries/Procedures: Reports: None HEENT Surgical History: Reports: Cataract Surgery Cardiovascular Surgical History: Reports: Pacer, Vascular Surgery GI Surgical History: Reports: Colonoscopy Male Surgical History: Reports: TURBT-Transurethral Resection of Bladder T umor Neurological Surgical History: Reports: None Musculoskeletal Surgical History: Reports: Knee Replacement Social & Family History - Family History Family Medical History: No Pertinent Family History - Tobacco Use Tobacco Use Status *Q: Unknown Ever Used Tobacco - Caffeine Use Caffeine Use: Reports: Coffee Caffeine Use Comment: 1 cup per day - Living Situation & Occupation Living situation: Reports: , with Spouse Occupation: Retired ED ROS GENERAL - Review of Systems Review Of Systems: See Below Constitutional: Reports: Fever. Denies: Chills, Night Sweats HEENT: Reports: No Symptoms Respiratory: Reports: No Symptoms Cardiovascular: Reports: No Symptoms GI/Abdominal: Reports: No Symptoms ED EXAM, GENERAL - Physical Exam Exam: See Below Exam Limited By: No Limitations General Appearance: Alert, No Apparent Distress Head: Atraumatic, Normocephalic Neck: Normal Inspection, Supple, Non-Tender, Full Range of Motion Respiratory/Chest: No Respiratory Distress, Lungs Clear, Normal Breath Sounds Cardiovascular: Regular Rate, Rhythm, No Edema, No Murmur GI/Abdominal: Normal Bowel Sounds, Soft, Non-Tender Back Exam: Normal Inspection. No: CVA Tenderness (L), CVA Tenderness (R) Neurological: Alert, Oriented, Normal Cognition Skin Exam: Warm, Dry, Intact Course - Vital Signs Last Recorded V/S: Last Vital Signs Temp 37.4 C 05/24/21 03:26 Pulse 67 05/24/21 03:26 Resp 17 05/24/21 03:26 BP 141/82 H 05/24/21 03:26 Pulse Ox 89 L 05/24/21 03:26 - Orders/Labs/Meds Orders: Active Orders 24 hr Category Date Time Status Levofloxacin/Dextrose 5%-Water [Levaquin in D5W 750 MG/ Med 05/24/21 04:19 Active 150 ML] 750 mg Premix Bag 1 bag IV ONETIME Medication Orders Levofloxacin/Dextrose 750 mg/ (Premix) 150 mls @ 100 mls/hr IV ONETIME ONE Stop: 05/24/21 05:48 Last Admin: 05/24/21 04:26 Dose: 100 mls/hr Documented by: TERESE Meds: Medications Generic Name Dose Route Start Last Admin Trade Name Real PRN Reason Stop Dose Admin Levofloxacin/Dextrose 750 mg/ 150 mls @ 100 mls/hr 05/24/21 04:19 05/24/21 04:26 Premix IV 05/24/21 05:48 100 mls/hr ONETIME ONE Administration - Re-Assessments/Exams Free Text/Narrative Re-Assessment/Exam: 05/24/21 04:45 Culture and sensitivity grew out Enterococcus generally not susceptible to vancomycin or cephalosporins. Based on sensitivity we will start him on Levaquin 750 mg IV now and then 500 p.o. every 48 hours for 3 more doses. 05/24/21 06:16 The patient is doing well at this time anticipate discharge soon. Departure - Departure Time of Disposition: 06:18 Disposition: Home, Self-Care 01 Clinical Impression: Enterococcus UTI - Discharge Information Referrals: Jasper Haines MD [Primary Care Provider] - Forms: ED Department Discharge Additional Instructions: Return to the emergency room with any questions problems or worsening symptoms. Stop the cefdinir, or Omnicef, the antibiotic you were started on a couple of days ago. You have been started on Levaquin and this is a new antibiotic that should cure the infection take 1 Thursday right after dialysis and then 1 every 48 hours thereafter. On the days he has dialysis he should take it after dialysis. Sepsis Event Note (ED) - Evaluation Sepsis Screening Result: No Definite Risk - Focused Exam Vital Signs: Vital Signs Temp Pulse Resp BP Pulse Ox 05/24/21 03:26 37.4 C 67 17 141/82 H 89 L - My Orders Last 24 Hours: My Active Orders 05/24/21 04:19 Levofloxacin/Dextrose 5%-Water [Levaquin in D5W 750 MG/150 ML] 750 mg Premix Bag 1 bag IV ONETIME - Assessment/Plan Last 24 Hours: My Active Orders 09/24/21 04:19 Levofloxacin/Dextrose 5%-Water [Levaquin in D5W 750 MG/150 ML] 750 mg Premix Bag 1 bag IV ONETIME
[2021-05-24] MEDS ORDERED: Levofloxacin/Dextrose 5%-Water 750 MG in Premix Bag 1 BAG IV ONE (04:19)
== END 2021-05-24 06:37 | disposition home or self-care (01) ==
LOC: JD.ED 03:20
DX: N39.0 Urinary tract infection, site not specified (principal); B95.2 Enterococcus as the cause of diseases classified elsewhere; I48.91 Unspecified atrial fibrillation; E78.00 Pure hypercholesterolemia, unspecified; I10 Essential (primary) hypertension; E11.9 Type 2 diabetes mellitus without complications; M10.9 Gout, unspecified; M19.90 Unspecified osteoarthritis, unspecified site; Z79.82 Long term (current) use of aspirin; Z79.899 Other long term (current) drug therapy
CPT/HCPCS: 96365; 96366; 99284; J1956

== ENCOUNTER 2021-08-01 12:20 | Emergency (ER) | payer MEDICARE, BC ==
--- NOTE | 2021-08-01 13:02 | EDM.PDOC ---
ED HPI GENERAL MEDICAL PROBLEM - General Chief Complaint: Neurological Problem Stated Complaint: [facility] Time Seen by Provider: 08/01/21 12:25 - History of Present Illness INITIAL COMMENTS - FREE TEXT/NARRATIVE: Stroke alert Last known normal:10:59 today 85-year-old male on chronic hemodialysis developed difficulty speaking consistent with an expressive aphasia right after he finished dialysis today. He was brought right over here and upon arrival here he is improving fairly well and by the time I got into the room he was back to baseline. The patient has had problems with urinary tract infections despite being on dialysis. He was seen in May for 1 of these. He did get better after treatment. Denies any chest pain breathing difficulties or shortness of breath. He does not recall having any difficulty with dialysis today. - Related Data Allergies Allergy/AdvReac Type Severity Reaction Status Date / Time No Known Allergies Allergy Verified 05/22/21 18:03 Home Meds: Home Meds Aspirin 81 mg PO DAILY 09/30/15 [History] Metoprolol Succinate [Toprol XL] 50 mg PO BEDTIME 09/30/15 [History] Dutasteride [Avodart] 0.5 mg PO DAILY 05/06/19 [History] allopurinoL [Zyloprim] 200 mg PO DAILY 05/06/19 [History] Simvastatin 5 mg PO DAILY 09/15/20 [History] Midodrine 10 mg PO ASDIRECTED 03/24/21 [History] Cefdinir [Omnicef] 300 mg PO Q48H #5 cap 05/22/21 [Rx] Levofloxacin [Levaquin] 500 mg PO ASDIRECTED #3 tablet 05/24/21 [Rx] Past Medical History HEENT History: Reports: Hard of Hearing, Impaired Vision Other HEENT History: wears glasses Cardiovascular History: Reports: Afib, Arrhythmia, High Cholesterol, Hypertension Other Cardiovascular History: sick sinus syndrome Respiratory History: Reports: None Gastrointestinal History: Reports: None Genitourinary History: Reports: BPH, Dialysis Other Genitourinary History: enlarged prostate--he states he dribbles urine often during the night. He believes he is down to passing about 2 tablespoons of urine only per day. Has been a hemodialysis patient for 1 year. Musculoskeletal History: Reports: Gout, Osteoarthritis Other Musculoskeletal History: right knee arthroplasty 12/2020 Neurological History: Reports: None Psychiatric History: Reports: None Endocrine/Metabolic History: Reports: Diabetes, Type II Hematologic History: Reports: Anemia, Iron Deficiency Immunologic History: Reports: Immunosuppression Oncologic (Cancer) History: Reports: Bladder Other Oncologic History: bladder 2015 Dermatologic History: Reports: None - Past Surgical History Head Surgeries/Procedures: Reports: None HEENT Surgical History: Reports: Cataract Surgery Cardiovascular Surgical History: Reports: Pacer, Vascular Surgery GI Surgical History: Reports: Colonoscopy Male Surgical History: Reports: TURBT-Transurethral Resection of Bladder Tumor Neurological Surgical History: Reports: None Musculoskeletal Surgical History: Reports: Knee Replacement Social & Family History - Family History Family Medical History: No Pertinent Family History - Caffeine Use Caffeine Use: Reports: Coffee Caffeine Use Comment: 1 cup per day - Living Situation & Occupation Living situation: Reports: , with Spouse Occupation: Retired ED ROS GENERAL - Review of Systems Review Of Systems: See Below Constitutional: Reports: No Symptoms HEENT: Reports: No Symptoms Respiratory: Reports: No Symptoms Cardiovascular: Reports: No Symptoms Endocrine: Reports: No Symptoms : Reports: No Symptoms Musculoskeletal: Reports: No Symptoms Skin: Reports: No Symptoms Neurological: Reports: Other (Transient speech difficulty this has resolved) ED EXAM, GENERAL - Physical Exam Exam: See Below Exam Limited By: No Limitations General Appearance: Alert, No Apparent Distress Eye Exam: Bilateral Eye: EOMI, Normal Inspection, PERRL Ears: Normal External Exam, Normal Canal, Hearing Grossly Normal, Normal TMs Nose: Normal Inspection, Normal Mucosa, No Blood Throat/Mouth: Normal Inspection, Normal Lips, Normal Gums, Normal Oropharynx, Normal Voice, No Airway Compromise. No: Normal Teeth Head: Atraumatic, Normocephalic Neck: Normal Inspection, Supple, Non-Tender, Full Range of Motion. No: Ly mphadenopathy (L), Lymphadenopathy (R) Respiratory/Chest: No Respiratory Distress, Lungs Clear, Normal Breath Sounds Cardiovascular: Regular Rate, Rhythm, No Edema, No Murmur GI/Abdominal: Normal Bowel Sounds, Soft, Non-Tender Neurological: Alert, Oriented, CN II-XII Intact, Normal Cognition, No Mot or/Sensory Deficits Course - Vital Signs Last Recorded V/S: Last Vital Signs Temp 36.6 C 08/01/21 12:34 Pulse 87 08/01/21 12:34 Resp 16 08/01/21 12:34 BP 184/172 H 08/01/21 12:34 Pulse Ox 99 12/02/21 12:34 - Orders/Labs/Meds Orders: Active Orders 24 hr Category Date Time Status Blood Glucose Check, Bedside [RC] ONETIME Care 08/01/21 12:49 Active CULTURE URINE [MREF] Stat Lab 08/01/21 13:32 Received Labs: Laboratory Tests 08/01/21 08/01/21 08/01/21 Range/Units 12:55 12:55 12:55 WBC 5.66 (4.23-9.07) K/mm3 RBC 3.92 L (4.63-6.08) M/mm3 Hgb 12.3 L (13.7-17.5) gm/dl Hct 38.7 L (40.1-51.0) % MCV 98.7 H (79.0-92.2) fl MCH 31.4 (25.7-32.2) pg MCHC 31.8 L (32.2-35.5) g/dl RDW Std Deviation 56.8 H (35.1-43.9) fL Plt Count 164 (163-337) K/mm3 MPV 9.7 (9.4-12.3) fl Neut % (Auto) 61.3 (34.0-67.9) % Lymph % (Auto) 18.4 L (21.8-53.1) % [place] % (Auto) 15.0 H (5.3-12.2) % Eos % (Auto) 4.6 (0.8-7.0) Baso % (Auto) 0.5 (0.1-1.2) % Neut # (Auto) 3.47 (1.78-5.38) K/mm3 Lymph # (Auto) 1.04 L (1.32-3.57) K/mm3 [place] # (Auto) 0.85 H (0.30-0.82) K/mm3 Eos # (Auto) 0.26 (0.04-0.54) K/mm3 Baso # (Auto) 0.03 (0.01-0.08) K/mm3 PT 10.3 (9.7-12.0) SECONDS INR 0.93 APTT 28.2 (21.7-31.4) SECONDS Sodium 142 (136-145) mEq/L Potassium 3.8 (3.5-5.1) mEq/L Chloride 102 (98-107) mEq/L Carbon Dioxide 31 (21-32) mEq/L Anion Gap 12.8 (5-15) BUN 12 D (7-18) mg/dL Creatinine 2.1 H D (0.7-1.3) mg/dL Est Cr Clr Drug Dosing 29.25 mL/min Estimated GFR (MDRD) 30 (>60) mL/min BUN/Creatinine Ratio 5.7 L (14-18) Glucose 92 (70-99) mg/dL POC Glucose (70-99) mg/dL Calcium 9.0 (8.5-10.1) mg/dL Total Bilirubin 0.5 (0.2-1.0) mg/dL AST 21 (15-37) U/L ALT 25 (16-63) U/L Alkaline Phosphatase 74 (46-116) U/L Troponin I 0.061 H* (0.00-0.056) ng/mL Total Protein 6.7 (6.4-8.2) g/dl Albumin 3.5 (3.4-5.0) g/dl Globulin 3.2 gm/dL Albumin/Globulin Ratio 1.1 (1-2) Urine Color (Yellow) Urine Appearance (Clear) Urine pH (5.0-8.0) Ur Specific [place] (1.005-1.030) Urine Protein (Negative) Urine Glucose (UA) (Negative) Urine Ketones (Negative) Urine Occult Blood (Negative) Urine Nitrite (Negative) Urine Bilirubin (Negative) Urine Urobilinogen (0.2-1.0) Ur Leukocyte Esterase (Negative) Urine RBC (0-5) /hpf Urine WBC (0-5) /hpf Ur Squamous Epith Cells (0-5) /hpf Urine Bacteria (FEW) /hpf Urine Mucus (FEW) /hpf 08/01/21 08/01/21 08/01/21 Range/Units 12:55 13:32 16:05 WBC (4.23-9.07) K/mm3 RBC (4.63-6.08) M/mm3 Hgb (13.7-17.5) gm/dl Hct (40.1-51.0) % MCV (79.0-92.2) fl MCH (25.7-32.2) pg MCHC (32.2-35.5) g/dl RDW Std Deviation (35.1-43.9) fL Plt Count (163-337) K/mm3 MPV (9.4-12.3) fl Neut % (Auto) (34.0-67.9) % Lymph % (Auto) (21.8-53.1) % Berks % (Auto) (5.3-12.2) % Eos % (Auto) (0.8-7.0) Baso % (Auto) (0.1-1.2) % Neut # (Auto) (1.78-5.38) K/mm3 Lymph # (Auto) (1.32-3.57) K/mm3 [place] # (Auto) (0.30-0.82) K/mm3 Eos # (Auto) (0.04-0.54) K/mm3 Baso # (Auto) (0.01-0.08) K/mm3 PT (9.7-12.0) SECONDS INR APTT (21.7-31.4) SECONDS Sodium (136-145) mEq/L Potassium (3.5-5.1) mEq/L Chloride (98-107) mEq/L Carbon Dioxide (21-32) mEq/L Anion Gap (5-15) BUN (7-18) mg/dL Creatinine (0.7-1.3) mg/dL Est Cr Clr Drug Dosing mL/min Estimated GFR (MDRD) (>60) mL/min BUN/Creatinine Ratio (14-18) Glucose (70-99) mg/dL POC Glucose 86 (70-99) mg/dL Calcium (8.5-10.1) mg/dL Total Bilirubin (0.2-1.0) mg/dL AST (15-37) U/L ALT (16-63) U/L Alkaline Phosphatase (46-116) U/L Troponin I 0.066 H* (0.00-0.056) ng/mL Total Protein (6.4-8.2) g/dl Albumin (3.4-5.0) g/dl Globulin gm/dL Albumin/Globulin Ratio (1-2) Urine Color Yellow (Yellow) Urine Appearance Clear (Clear) Urine pH 8.5 H (5.0-8.0) Ur Specific [place] 1.015 (1.005-1.030) Urine Protein 1+ H (Negative) Urine Glucose (UA) Negative (Negative) Urine Ketones Negative (Negative) Urine Occult Blood Trace-intact H (Negative) Urine Nitrite Negative (Negative) Urine Bilirubin Negative (Negative) Urine Urobilinogen 0.2 (0.2-1.0) Ur Leukocyte Esterase Negative (Negative) Urine RBC 5-10 H (0-5) /hpf Urine WBC 0-5 (0-5) /hpf Ur Squamous Epith Cells 0-5 (0-5) /hpf Urine Bacteria Few (FEW) /hpf Urine Mucus Few (FEW) /hpf - Re-Assessments/Exams Free Text/Narrative Re-Assessment/Exam: 08/01/21 18:08 Patient was essentially symptom-free from the time of my evaluation to this time. He was observed did not demonstrate any more symptoms. We cannot do an MRI here because of the pacemaker. By the time we got him to [facility] in [place] they would not be able to do the MRI as well. Discussed the situation with Dr. North who thinks it is highly unlikely that the patient had a TIA his recommendation however is to have the patient follow-up in the neurology clinic. While checking the patient's labs his troponin was noted to be minimally elevated at 0.061 this was rechecked and found to be in the same range at 0.066. Patient has not had any chest discomfort he is on dialysis and this could be a relatively low reading on a troponin for a dialysis patient. I did go through the patient's chart and have not found a prior troponin. I did discuss the overall situation with the patient and they would like to follow-up with neurology. The neurology clinic at [facility] will contact the patient in the morning to arrange a follow-up time. Departure - Departure Time of Disposition: 18:10 Disposition: Home, Self-Care 01 Clinical Impression: Transient confusion - Discharge Information Referrals: PCP,None [Ordering Only Provider] - Forms: ED Department Discharge Additional Instructions: Return to the emergency room with any questions problems or worsening symptoms. You should be contacted by the [facility] neurology clinic tomorrow to arrange a follow-up appointment. Continue taking all your routine medications. Sepsis Event Note (ED) - Focused Exam Vital Signs: Vital Signs Temp Pulse Resp BP Pulse Ox 08/01/21 12:34 36.6 C 87 16 184/172 H 99 - My Orders Last 24 Hours: My Active Orders 08/01/21 12:49 Blood Glucose Check, Bedside [RC] ONETIME 08/01/21 13:32 CULTURE URINE [MREF] Stat - Assessment/Plan Last 24 Hours: My Active Orders 08/01/21 12:49 Blood Glucose Check, Bedside [RC] ONETIME 08/01/21 13:32 CULTURE URINE [MREF] Stat
--- NOTE | 2021-08-01 13:28 | CT ---
Head CT Technique: Multiple axial sections through the brain were obtained. Intravenous contrast was not utilized. Reconstructed coronal and sagittal images were obtained. Comparison: Prior head CT study of 04/13/21. Findings: Ventricles along with basal cisterns and sulci over the convexities are mildly prominent. Mild diminished density is noted within the periventricular white matter. No other abnormal parenchymal densities are seen. No evidence of intracranial hemorrhage is seen. No midline shift or mass-effect is seen. Bone window settings were reviewed. Visualized mastoid sinuses and paranasal sinuses show nothing acute. No acute calvarial abnormality is appreciated. Atherosclerotic calcification is seen within the carotid siphon. Impression: 1. Senescent change as described above. 2. Nothing acute is appreciated on noncontrast head CT exam. 3. If patient's symptoms warrant further evaluation, MRI brain could then be considered. Diagnostic code #2
[2021-08-01 19:55] VITALS: BP 117/80; PULSE 77
== END 2021-08-01 18:51 | disposition home or self-care (01) ==
LOC: JD.ED 12:20
DX: R41.0 Disorientation, unspecified (principal); I48.91 Unspecified atrial fibrillation; E78.00 Pure hypercholesterolemia, unspecified; I10 Essential (primary) hypertension; E11.9 Type 2 diabetes mellitus without complications; M10.9 Gout, unspecified; M19.90 Unspecified osteoarthritis, unspecified site; Z79.899 Other long term (current) drug therapy; Z79.82 Long term (current) use of aspirin
CPT/HCPCS: 36415; 70450; 70450-26; 80053; 81001; 82947; 84484; 85025; 85610; 85730; 87086; 87088; 87186; 93005; 99285-25

== ENCOUNTER 2021-11-28 20:29 | Emergency (ER) | payer MEDICARE, BC ==
[2021-11-28] MEDS ORDERED: Sodium Chloride 0.9% 10 ML Syringe FLUSH PRN (20:48)
[2021-11-28 20:50] VITALS: BP 160/88; PULSE 94
[2021-11-28 22:19] LABS: CORONAVIRUS COVID-19 NAA POSITIVE (NEGATIVE)
[2021-11-28] MEDS ORDERED: Doxycycline 100 MG Cap PO ONE (22:24)
== END 2021-11-28 22:50 | disposition home or self-care (01) ==
LOC: JD.ED 20:29
DX: U07.1 COVID-19 (principal); J12.82 Pneumonia due to coronavirus disease 2019; E78.00 Pure hypercholesterolemia, unspecified; I10 Essential (primary) hypertension; M10.9 Gout, unspecified; I48.91 Unspecified atrial fibrillation; E11.9 Type 2 diabetes mellitus without complications; N40.0 Benign prostatic hyperplasia without lower urinary tract symptoms; Z79.82 Long term (current) use of aspirin; Z20.822 Contact with and (suspected) exposure to COVID-19; Z79.899 Other long term (current) drug therapy
CPT/HCPCS: 0240U; 36415; 71045; 80053; 81001; 83735; 85025; 86140; 99284; A9270; J3490

== ENCOUNTER 2022-04-04 17:50 | Emergency (ER) | payer MEDICARE, BC ==
[2022-04-04 18:00] VITALS: BP 114/75; PULSE 79
[2022-04-04] MEDS ORDERED: Magnesium Oxide 400 MG Tab PO ONE (19:28)
== END 2022-04-04 20:11 | disposition home or self-care (01) ==
LOC: JD.ED 17:50
DX: R53.1 Weakness (principal); R25.2 Cramp and spasm; E78.00 Pure hypercholesterolemia, unspecified; I48.91 Unspecified atrial fibrillation; I10 Essential (primary) hypertension; E11.9 Type 2 diabetes mellitus without complications; M10.9 Gout, unspecified; M19.90 Unspecified osteoarthritis, unspecified site; Z79.899 Other long term (current) drug therapy; Z79.02 Long term (current) use of antithrombotics/antiplatelets
CPT/HCPCS: 36415; 70450; 80053; 83735; 85025; 85610; 93005; 99284; A9270; 93010

== ENCOUNTER 2022-11-03 13:05 | Emergency (ER) | payer MEDICARE, BC ==
[2022-11-03 13:21] VITALS: BP 128/106; PULSE 102
[2022-11-03] MEDS ORDERED: Sodium Chloride 0.9% 10 ML Syringe FLUSH PRN (13:25)
[2022-11-03] MEDS ORDERED: Sodium Chloride 0.9% 1,000 ML IV ONE ×2 (13:25→14:51)
[2022-11-03] MEDS ORDERED: Promethazine 25 MG in Sodium Chloride 0.9% 50 ML IV ONE (13:30)
[2022-11-03 14:43] LABS: CORONAVIRUS COVID-19 NAA NEGATIVE (NEGATIVE)
[2022-11-03 14:50] LABS: ESTIMATED GFR 12 mL/min (>60)
[2022-11-03] MEDS ORDERED: cefTRIAXone 2 GM in Sodium Chloride 0.9% 100 ML IV ONE (15:07)
[2022-11-03] MEDS ORDERED: Azithromycin 250 MG Tab PO SCH (18:15)
== END 2022-11-03 18:50 ==
LOC: JD.ED 13:05
DX: N13.30 Unspecified hydronephrosis (principal); J18.9 Pneumonia, unspecified organism; R09.02 Hypoxemia; I48.91 Unspecified atrial fibrillation; E78.00 Pure hypercholesterolemia, unspecified; I10 Essential (primary) hypertension; E11.9 Type 2 diabetes mellitus without complications; N40.0 Benign prostatic hyperplasia without lower urinary tract symptoms; M10.9 Gout, unspecified; Z79.899 Other long term (current) drug therapy; Z20.822 Contact with and (suspected) exposure to COVID-19
CPT/HCPCS: 0241U; 36415; 71045; 74176; 80053; 81001; 83605; 85007; 85027; 85610; 86140; 87040; 87086; 96361; 96365; 96367; 99285; A9270; J0696; J2550; J3490; J7030

== ENCOUNTER 2022-11-17 19:30 | Emergency (ER) | payer MEDICARE, BC ==
[2022-11-17 19:40] VITALS: BP 160/107; PULSE 94
[2022-11-17] MEDS ORDERED: Sodium Chloride 0.9% 1,000 ML IV SCH (20:00)
[2022-11-17] MEDS ORDERED: cefTRIAXone 2 GM in Sodium Chloride 0.9% 100 ML IV ONE (20:26)
== END 2022-11-17 22:15 | disposition home or self-care (01) ==
LOC: JD.ED 19:30
DX: J18.9 Pneumonia, unspecified organism (principal); J90 Pleural effusion, not elsewhere classified; I11.0 Hypertensive heart disease with heart failure; I50.9 Heart failure, unspecified; I48.91 Unspecified atrial fibrillation; E78.00 Pure hypercholesterolemia, unspecified; M10.9 Gout, unspecified; E11.9 Type 2 diabetes mellitus without complications; Z99.2 Dependence on renal dialysis; Z79.899 Other long term (current) drug therapy; Z79.02 Long term (current) use of antithrombotics/antiplatelets
CPT/HCPCS: 36415; 71045; 80053; 82009; 83605; 83735; 83880; 84484; 85007; 85027; 85610; 85730; 86140; 87040; 93005; 96365; 99285; J0696; J3490; J7030; 93010

== ENCOUNTER 2022-11-22 23:09 | Emergency (ER) | payer MEDICARE, BC ==
[2022-11-22 23:51] LABS: ESTIMATED GFR 21 mL/min (>60)
[2022-11-23] MEDS ORDERED: Aspirin 81 MG Tab.Chew PO ONE (03:25)
[2022-11-23] MEDS ORDERED: Aspirin 81 MG Tab.Chew ONE (03:38)
[2022-11-23 06:30] VITALS: BP 126/95; PULSE 86
== END 2022-11-23 04:00 | disposition home or self-care (01) ==
LOC: JD.ED 23:09
DX: G45.9 Transient cerebral ischemic attack, unspecified (principal); I10 Essential (primary) hypertension; E78.00 Pure hypercholesterolemia, unspecified; I48.91 Unspecified atrial fibrillation; M10.9 Gout, unspecified; E11.9 Type 2 diabetes mellitus without complications; D64.9 Anemia, unspecified; Z79.899 Other long term (current) drug therapy; Z79.02 Long term (current) use of antithrombotics/antiplatelets
CPT/HCPCS: 36415; 70450; 71045; 80053; 82947; 84484; 85025; 85610; 85730; 93005; 99285; A9270

== ENCOUNTER 2023-01-05 17:45 | Emergency (ER) | payer MEDICARE, BC ==
[2023-01-05] MEDS ORDERED: Sodium Chloride 0.9% 10 ML Syringe FLUSH PRN (18:24)
[2023-01-05 18:33] LABS: HEMATOCRIT 36.1 % (40.1-51.0); HEMOGLOBIN 11.4 gm/dl (13.7-17.5); MEAN CORPUSCULAR HEMOGLOBIN 28.8 pg (25.7-32.2); MEAN CORPUSCULAR HGB CONC 31.6 g/dl (32.2-35.5); MEAN CORPUSCULAR VOLUME 91.2 fl (79.0-92.2); MEAN PLATELET VOLUME 9.4 fl (9.4-12.3); PLATELET COUNT,PLT 250 K/mm3 (163-337); RED BLOOD CELL COUNT 3.96 M/mm3 (4.63-6.08); WHITE BLOOD CELL COUNT,WBC 11.14 K/mm3 (4.23-9.07)
[2023-01-05 18:43] LABS: PROTHROMBIN TIME 10.7 SECONDS (9.7-12.0)
[2023-01-05 18:46] LABS: A/G RATIO 0.8 (1-2); ALBUMIN 3.1 g/dl (3.4-5.0); ANION GAP 13.8 (5-15); BILIRUBIN TOTAL 0.6 mg/dL (0.2-1.0); BUN/CREATININE RATIO 6.7 (14-18); CALCIUM 9.4 mg/dL (8.5-10.1); CREATININE 3.9 mg/dL (0.7-1.3); EST CRCL DRUG DOSING (CG) 15.1 mL/min; POTASSIUM,K 3.8 mEq/L (3.5-5.1); PROTEIN TOTAL,TP 7.2 g/dl (6.4-8.2)
[2023-01-05 18:47] LABS: C-REACTIVE PROTEIN 15.6 mg/dL (<1.0)
[2023-01-05 18:53] LABS: LACTIC ACID 1.6 mmol/L (0.4-2.0)
[2023-01-05 19:07] LABS: BAND PERCENT MAN 0 % (0-10); BASOPHILS PERCENT MAN 1 (0.2-1.2); EOSINOPHILS PERCENT MAN 2 % (0.8-7.0); LYMPHOCYTES % ATYPICAL MANUAL 0 %; LYMPHOCYTES PERCENT MAN 10 % (20-40); MONOCYTES PERCENT MAN 0 % (2-10)
[2023-01-05 19:08] LABS: PLATELET COUNT ESTIMATE ADEQUATE
[2023-01-05 20:26] LABS: CORONAVIRUS COVID-19 NAA NEGATIVE (NEGATIVE); INFLUENZA A NAA NEGATIVE (NEGATIVE); RESPIRATORY SYNCYTIAL VIR NAA NEGATIVE (NEGATIVE)
[2023-01-05 21:34] LABS: APPEARANCE,URINE CLEAR (Clear); BILIRUBIN,URINE NEGATIVE (Negative); COLOR,URINE YELLOW (Yellow); GLUCOSE,URINE NEGATIVE (Negative); KETONES,URINE NEGATIVE (Negative); LEUKOCYTE ESTERASE,URINE NEGATIVE (Negative); NITRITE,URINE NEGATIVE (Negative); OCCULT BLOOD,URINE TRACE-INTACT (Negative); PH,URINE >=9.0 (5.0-8.0); PROTEIN,URINE 3+ (Negative); UROBILINOGEN,URINE 0.2 (0.2-1.0)
[2023-01-05 21:49] LABS: SQUAMOUS EPITHELIAL CELLS,UR 0-5 /hpf (0-5); WBC,URINE 0-5 /hpf (0-5)
[2023-01-05 21:52] LABS: BACTERIA,URINE FEW /hpf (FEW); MUCUS,URINE FEW /hpf (FEW)
[2023-01-05] MEDS ORDERED: Levofloxacin 750 MG Tab PO ONE (22:25)
[2023-01-05 23:08] VITALS: BP 127/80; PULSE 70
== END 2023-01-05 22:59 | disposition home or self-care (01) ==
LOC: JD.ED 17:45
DX: R50.9 Fever, unspecified (principal); R11.2 Nausea with vomiting, unspecified; I48.91 Unspecified atrial fibrillation; E78.00 Pure hypercholesterolemia, unspecified; E11.9 Type 2 diabetes mellitus without complications; Z79.899 Other long term (current) drug therapy; Z79.02 Long term (current) use of antithrombotics/antiplatelets; Z20.822 Contact with and (suspected) exposure to COVID-19
CPT/HCPCS: 0241U; 36415; 71045; 80053; 81001; 83605; 85007; 85027; 85610; 86140; 87040; 99285; A9270; J3490; 99283

== ENCOUNTER 2023-01-07 09:26 | Emergency (ER) | payer MEDICARE, BC ==
[2023-01-07 12:17] LABS: BASOPHILS ABSOLUTE AUTO 0.01 K/mm3 (0.01-0.08); BASOPHILS PERCENT AUTO 0.1 % (0.1-1.2); EOSINOPHILS ABSOLUTE AUTO 0.53 K/mm3 (0.04-0.54); EOSINOPHILS PERCENT AUTO 6.4 (0.8-7.0); HEMATOCRIT 33.8 % (40.1-51.0); HEMOGLOBIN 10.4 gm/dl (13.7-17.5); IMMATURE GRAN ABSOLUTE AUTO 0.02 K/mm3 (0.00-0.10); IMMATURE GRAN PERCENT AUTO 0.2 % (<=1.0); LYMPHOCYTES ABSOLUTE AUTO 0.87 K/mm3 (1.32-3.57); LYMPHOCYTES PERCENT AUTO 10.5 % (21.8-53.1); MEAN CORPUSCULAR HEMOGLOBIN 28.5 pg (25.7-32.2); MEAN CORPUSCULAR HGB CONC 30.8 g/dl (32.2-35.5); MEAN CORPUSCULAR VOLUME 92.6 fl (79.0-92.2); MEAN PLATELET VOLUME 9.6 fl (9.4-12.3); MONOCYTES ABSOLUTE AUTO 0.84 K/mm3 (0.30-0.82); MONOCYTES PERCENT AUTO 10.1 % (5.3-12.2); NEUTROPHILS ABSOLUTE AUTO 6.02 K/mm3 (1.78-5.38); NEUTROPHILS PERCENT AUTO 72.7 % (34.0-67.9); PLATELET COUNT,PLT 214 K/mm3 (163-337); RED BLOOD CELL COUNT 3.65 M/mm3 (4.63-6.08); WHITE BLOOD CELL COUNT,WBC 8.29 K/mm3 (4.23-9.07)
[2023-01-07 12:40] LABS: APPEARANCE,URINE CLEAR (Clear); BILIRUBIN,URINE NEGATIVE (Negative); COLOR,URINE YELLOW (Yellow); GLUCOSE,URINE NEGATIVE (Negative); KETONES,URINE NEGATIVE (Negative); LEUKOCYTE ESTERASE,URINE NEGATIVE (Negative); NITRITE,URINE NEGATIVE (Negative); OCCULT BLOOD,URINE NEGATIVE (Negative); PH,URINE >=9.0 (5.0-8.0); PROTEIN,URINE 3+ (Negative); UROBILINOGEN,URINE 0.2 (0.2-1.0)
[2023-01-07 12:51] LABS: A/G RATIO 0.7 (1-2); ALBUMIN 2.6 g/dl (3.4-5.0); ANION GAP 12.5 (5-15); BILIRUBIN TOTAL 0.3 mg/dL (0.2-1.0); BUN/CREATININE RATIO 5.9 (14-18); C-REACTIVE PROTEIN 13.7 mg/dL (<1.0); CALCIUM 8.9 mg/dL (8.5-10.1); CREATININE 3.2 mg/dL (0.7-1.3); EST CRCL DRUG DOSING (CG) 18.52 mL/min; POTASSIUM,K 3.5 mEq/L (3.5-5.1); PROTEIN TOTAL,TP 6.4 g/dl (6.4-8.2)
[2023-01-07 12:53] LABS: LACTIC ACID 1.5 mmol/L (0.4-2.0)
[2023-01-07 12:54] LABS: BACTERIA,URINE FEW /hpf (FEW); FINE GRANULAR CASTS,URINE 0-5 /lpf (0-5); HYALINE CASTS,URINE 0-5 /lpf (0-5); RBC,URINE 0-5 /hpf (0-5); SQUAMOUS EPITHELIAL CELLS,UR 0-5 /hpf (0-5); WBC,URINE 0-5 /hpf (0-5)
[2023-01-07 12:55] LABS: MUCUS,URINE RARE /hpf (FEW)
[2023-01-07 19:14] VITALS: BP 119/80; PULSE 80
== END 2023-01-07 14:10 | disposition home or self-care (01) ==
LOC: JD.ED 09:26
DX: R53.1 Weakness (principal); R41.0 Disorientation, unspecified; I48.91 Unspecified atrial fibrillation; E78.00 Pure hypercholesterolemia, unspecified; E11.9 Type 2 diabetes mellitus without complications; M10.9 Gout, unspecified; N40.0 Benign prostatic hyperplasia without lower urinary tract symptoms; Z79.899 Other long term (current) drug therapy; Z86.16 Personal history of COVID-19; Z79.02 Long term (current) use of antithrombotics/antiplatelets
CPT/HCPCS: 36415; 70450; 70450-26; 71045; 71045-26; 80053; 81001; 83605; 85025; 86140; 99285

== ENCOUNTER 2023-02-24 07:59 | Emergency (ER) | payer MEDICARE, BC ==
[2023-02-24] MEDS ORDERED: Acetaminophen 325 MG Tab PO ONE (08:39)
[2023-02-24] MEDS ORDERED: Dextrose 5%-0.9% NaCl 1,000 ML IV SCH (08:45)
[2023-02-24 09:33] LABS: HEMATOCRIT 32.3 % (40.1-51.0); MEAN CORPUSCULAR HEMOGLOBIN 28.8 pg (25.7-32.2); MEAN CORPUSCULAR VOLUME 93.1 fl (79.0-92.2); MEAN PLATELET VOLUME 9.6 fl (9.4-12.3); PLATELET COUNT,PLT 261 K/mm3 (163-337); RED BLOOD CELL COUNT 3.47 M/mm3 (4.63-6.08); WHITE BLOOD CELL COUNT,WBC 11.37 K/mm3 (4.23-9.07)
[2023-02-24 09:51] LABS: PROTHROMBIN TIME 10.7 SECONDS (9.7-12.0)
[2023-02-24 09:52] LABS: PTT,PARTIAL THROMBOPLSTIN TIME 29.9 SECONDS (21.7-31.4)
[2023-02-24 10:00] LABS: BAND PERCENT MAN 0 % (0-10); BASOPHILS PERCENT MAN 0 (0.2-1.2); EOSINOPHILS PERCENT MAN 2 % (0.8-7.0); LYMPHOCYTES % ATYPICAL MANUAL 0 %; LYMPHOCYTES PERCENT MAN 7 % (20-40); MONOCYTES PERCENT MAN 7 % (2-10)
[2023-02-24 10:01] LABS: TOXIC GRANULATION 1+ SLIGHT
[2023-02-24 10:02] LABS: ANION GAP 13.5 (5-15); ANISOCYTOSIS 1+ SLIGHT; BILIRUBIN TOTAL 0.5 mg/dL (0.2-1.0); BUN/CREATININE RATIO 9.1 (14-18); C-REACTIVE PROTEIN 6.8 mg/dL (<1.0); CALCIUM 7.8 mg/dL (8.5-10.1); CREATININE 5.7 mg/dL (0.7-1.3); EST CRCL DRUG DOSING (CG) 10.4 mL/min; MAGNESIUM 2.1 mg/dL (1.8-2.4); POTASSIUM,K 4.5 mEq/L (3.5-5.1); PROTEIN TOTAL,TP 6.3 g/dl (6.4-8.2)
[2023-02-24 10:03] LABS: PLATELET COUNT ESTIMATE ADEQUATE; POLYCHROMASIA 1+ SLIGHT
[2023-02-24 10:10] LABS: A/G RATIO 0.8 (1-2); ALBUMIN 2.8 g/dl (3.4-5.0)
[2023-02-24] MEDS ORDERED: cefTRIAXone 1 GM in Sodium Chloride 0.9% 100 ML IV ONE (11:07)
[2023-02-24 11:35] LABS: APPEARANCE,URINE SLT CLOUDY (Clear); BILIRUBIN,URINE NEGATIVE (Negative); COLOR,URINE YELLOW (Yellow); GLUCOSE,URINE NEGATIVE (Negative); KETONES,URINE NEGATIVE (Negative); LEUKOCYTE ESTERASE,URINE 1+ (Negative); NITRITE,URINE NEGATIVE (Negative); OCCULT BLOOD,URINE TRACE-INTACT (Negative); PH,URINE 8.5 (5.0-8.0); PROTEIN,URINE 3+ (Negative); UROBILINOGEN,URINE 0.2 (0.2-1.0)
[2023-02-24 11:45] LABS: BACTERIA,URINE FEW /hpf (FEW); EPITHELIAL CELLS,URINE 0-5 /hpf (0-5); MUCUS,URINE FEW /hpf (FEW); RBC,URINE 0-5 /hpf (0-5)
[2023-02-24 13:15] LABS: CORONAVIRUS COVID-19 NAA NEGATIVE (NEGATIVE); INFLUENZA A NAA NEGATIVE (NEGATIVE)
[2023-02-24 14:59] VITALS: BP 117/75; PULSE 76
== END 2023-02-24 13:18 ==
LOC: JD.ED 07:59
DX: R50.9 Fever, unspecified (principal); E11.22 Type 2 diabetes mellitus with diabetic chronic kidney disease; N18.9 Chronic kidney disease, unspecified; D84.9 Immunodeficiency, unspecified; I48.91 Unspecified atrial fibrillation; E78.00 Pure hypercholesterolemia, unspecified; Z95.0 Presence of cardiac pacemaker; Z86.16 Personal history of COVID-19; Z79.899 Other long term (current) drug therapy; Z99.2 Dependence on renal dialysis; Z20.822 Contact with and (suspected) exposure to COVID-19
CPT/HCPCS: 0240U; 36415; 71045; 80053; 81001; 83605; 83735; 83880; 85007; 85027; 85610; 85730; 86140; 87040; 87086; 93005; 96361; 96365; 96367; 99285; A9270; J0696; J3370; J3490; J7042; J7050; 93010

== ENCOUNTER 2023-03-19 12:18 | Emergency (ER) | payer MEDICARE, BC ==
[2023-03-19 13:38] VITALS: BP 117/86; PULSE 78
[2023-03-19] MEDS ORDERED: Lidocaine 2% 11 ML Jelly Filled Syringe MUCMEM ONE (14:31)
[2023-03-19] MEDS ORDERED: Polyethylene Glycol 3350 Powder 17 GM Packet PO ONE (16:31)
== END 2023-03-19 16:50 | disposition home or self-care (01) ==
LOC: JD.ED 12:18
DX: K59.00 Constipation, unspecified (principal); I48.91 Unspecified atrial fibrillation; E78.00 Pure hypercholesterolemia, unspecified; M10.9 Gout, unspecified; E11.9 Type 2 diabetes mellitus without complications; Z86.16 Personal history of COVID-19; Z79.899 Other long term (current) drug therapy; Z79.02 Long term (current) use of antithrombotics/antiplatelets
CPT/HCPCS: 74018; 99283; A9270; 99282

== ENCOUNTER 2023-03-24 12:33 | Emergency (ER) | payer MEDICARE, BC ==
[2023-03-24 13:45] LABS: BASOPHILS ABSOLUTE AUTO 0.02 K/mm3 (0.01-0.08); BASOPHILS PERCENT AUTO 0.3 % (0.1-1.2); EOSINOPHILS ABSOLUTE AUTO 0.22 K/mm3 (0.04-0.54); EOSINOPHILS PERCENT AUTO 3.1 (0.8-7.0); HEMATOCRIT 34.7 % (40.1-51.0); HEMOGLOBIN 10.5 gm/dl (13.7-17.5); IMMATURE GRAN ABSOLUTE AUTO 0.02 K/mm3 (0.00-0.10); IMMATURE GRAN PERCENT AUTO 0.3 % (<=1.0); LYMPHOCYTES ABSOLUTE AUTO 1.18 K/mm3 (1.32-3.57); LYMPHOCYTES PERCENT AUTO 16.4 % (21.8-53.1); MEAN CORPUSCULAR HEMOGLOBIN 28.2 pg (25.7-32.2); MEAN CORPUSCULAR HGB CONC 30.3 g/dl (32.2-35.5); MEAN CORPUSCULAR VOLUME 93.3 fl (79.0-92.2); MEAN PLATELET VOLUME 9.1 fl (9.4-12.3); MONOCYTES ABSOLUTE AUTO 0.72 K/mm3 (0.30-0.82); NEUTROPHILS ABSOLUTE AUTO 5.04 K/mm3 (1.78-5.38); NEUTROPHILS PERCENT AUTO 69.9 % (34.0-67.9); PLATELET COUNT,PLT 330 K/mm3 (163-337); RED BLOOD CELL COUNT 3.72 M/mm3 (4.63-6.08)
[2023-03-24 14:14] LABS: A/G RATIO 0.7 (1-2); ANION GAP 10.4 (5-15); BILIRUBIN TOTAL 0.6 mg/dL (0.2-1.0); BUN/CREATININE RATIO 4.3 (14-18); C-REACTIVE PROTEIN 5.7 mg/dL (<1.0); EST CRCL DRUG DOSING (CG) 25.77 mL/min; POTASSIUM,K 3.4 mEq/L (3.5-5.1); PROTEIN TOTAL,TP 7.1 g/dl (6.4-8.2)
[2023-03-24 14:15] LABS: CREATININE 2.3 mg/dL (0.7-1.3)
[2023-03-24 17:08] VITALS: BP 112/86; PULSE 83
== END 2023-03-24 15:17 | disposition home or self-care (01) ==
LOC: JD.ED 12:33
DX: J90 Pleural effusion, not elsewhere classified (principal); I50.9 Heart failure, unspecified; N18.5 Chronic kidney disease, stage 5; I48.91 Unspecified atrial fibrillation; E78.00 Pure hypercholesterolemia, unspecified; M10.9 Gout, unspecified; Z99.2 Dependence on renal dialysis; Z79.02 Long term (current) use of antithrombotics/antiplatelets; Z95.0 Presence of cardiac pacemaker; Z86.16 Personal history of COVID-19; Z86.73 Personal history of transient ischemic attack (TIA), and cerebral infarction without residual deficits; Z79.899 Other long term (current) drug therapy; Z87.891 Personal history of nicotine dependence
CPT/HCPCS: 36415; 71045; 71045-26; 80053; 83880; 85025; 86140; 93005; 93010; 99285

== ENCOUNTER 2023-04-08 14:24 | Emergency (ER) | payer MEDICARE, BC ==
[2023-04-08] MEDS ORDERED: Albuterol/Ipratropium 3.0-0.5 MG/3 ML Neb Soln NEB ONE (14:34)
[2023-04-08 14:55] LABS: HEMATOCRIT 36.6 % (40.1-51.0); HEMOGLOBIN 11.1 gm/dl (13.7-17.5); MEAN CORPUSCULAR HEMOGLOBIN 28.1 pg (25.7-32.2); MEAN CORPUSCULAR HGB CONC 30.3 g/dl (32.2-35.5); MEAN CORPUSCULAR VOLUME 92.7 fl (79.0-92.2); MEAN PLATELET VOLUME 9.3 fl (9.4-12.3); PLATELET COUNT,PLT 306 K/mm3 (163-337); RED BLOOD CELL COUNT 3.95 M/mm3 (4.63-6.08); WHITE BLOOD CELL COUNT,WBC 8.23 K/mm3 (4.23-9.07)
[2023-04-08 15:18] LABS: A/G RATIO 0.7 (1-2); ALBUMIN 2.8 g/dl (3.4-5.0); ANION GAP 11.9 (5-15); BILIRUBIN TOTAL 0.4 mg/dL (0.2-1.0); BUN/CREATININE RATIO 7.4 (14-18); C-REACTIVE PROTEIN 5.6 mg/dL (<1.0); CALCIUM 8.8 mg/dL (8.5-10.1); CREATININE 3.8 mg/dL (0.7-1.3); EST CRCL DRUG DOSING (CG) 15.5 mL/min; POTASSIUM,K 3.9 mEq/L (3.5-5.1); PROTEIN TOTAL,TP 6.7 g/dl (6.4-8.2)
[2023-04-08 15:30] LABS: ANISOCYTOSIS 1+ SLIGHT; BAND PERCENT MAN 0 % (0-10); BASOPHILS PERCENT MAN 0 (0.2-1.2); EOSINOPHILS PERCENT MAN 3 % (0.8-7.0); LYMPHOCYTES % ATYPICAL MANUAL 1 %; LYMPHOCYTES PERCENT MAN 13 % (20-40); MONOCYTES PERCENT MAN 13 % (2-10); OVALOCYTES 1+ SLIGHT; PLATELET COUNT ESTIMATE ADEQUATE; POIKILOCYTOSIS 1+ SLIGHT
[2023-04-08] MEDS ORDERED: Iopamidol 755 Mg/ML 100 ML Bottle IVPUSH ONE (19:19)
[2023-04-08 19:29] VITALS: BP 118/77; PULSE 94
== END 2023-04-08 18:41 | disposition home or self-care (01) ==
LOC: JD.ED 14:24
DX: J90 Pleural effusion, not elsewhere classified (principal); I48.91 Unspecified atrial fibrillation; E78.00 Pure hypercholesterolemia, unspecified; N40.0 Benign prostatic hyperplasia without lower urinary tract symptoms; Z79.02 Long term (current) use of antithrombotics/antiplatelets; Z95.0 Presence of cardiac pacemaker; Z86.73 Personal history of transient ischemic attack (TIA), and cerebral infarction without residual deficits; Z86.16 Personal history of COVID-19; Z79.899 Other long term (current) drug therapy
CPT/HCPCS: 36415; 71045; 71275; 80053; 83880; 84484; 85007; 85027; 85379; 86140; 93005; 99285; Q9967; 93010; 99284

== ENCOUNTER → 2023-10-13 | Day surgery (SDC) | payer MEDICARE, BC ==
[~2023-10-13] MED LIST: Ondansetron 4 MG/2 ML SDV IVPUSH PRN; Propofol 200 MG/20 ML SDV ONE; Sodium Chloride 0.9% 10 ML Syringe FLUSH PRN; Sodium Chloride 0.9% 10 ML Syringe FLUSH SCH; ceFAZolin 2 GM Vial ONE; fentaNYL 100 MCG/2 ML SDV ONE
[2023-10-13] MEDS: Lactated Ringers 1,000 ML IV SCH (07:15)
[2023-10-13 07:54] LABS: A/G RATIO 0.9 (1-2); ALBUMIN 3.3 g/dl (3.4-5.0); ANION GAP 13.7 (5-15); BILIRUBIN TOTAL 0.5 mg/dL (0.2-1.0); BUN/CREATININE RATIO 10.4 (14-18); CALCIUM 9.4 mg/dL (8.5-10.1); EST CRCL DRUG DOSING (CG) 10.68 mL/min; POTASSIUM,K 4.7 mEq/L (3.5-5.1); PROTEIN TOTAL,TP 7.2 g/dl (6.4-8.2)
[2023-10-13 07:57] LABS: INR 0.99; PROTHROMBIN TIME 10.6 SECONDS (9.7-12.0)
[2023-10-13] MEDS: Bupivacaine 0.5% 30 ML SDV ONE (08:30)
[2023-10-13] MEDS: Lidocaine 1% 30 ML SDV ONE (08:30)
[2023-10-13] MEDS: EPINEPHrine 1 MG/ML SDV ONE (08:30)
[2023-10-13 11:26] VITALS: BP 108/75; PULSE 64
== END | disposition home or self-care (01) ==
LOC: JD.SDS 06:45
PROVIDERS: ATTEND Student in an Organized Health Care Education/Training Program
DX: N18.6 End stage renal disease (principal); E78.00 Pure hypercholesterolemia, unspecified; G47.30 Sleep apnea, unspecified; K21.9 Gastro-esophageal reflux disease without esophagitis; I49.5 Sick sinus syndrome; Z87.891 Personal history of nicotine dependence; Z99.2 Dependence on renal dialysis; Z79.899 Other long term (current) drug therapy
CPT/HCPCS: 36415; 36590; 80053; 85610; 85730; 86850; 86900; 86901; 87070; 87205; J0171; J0665; J0690; J2704; J3010; J7120; 00400; 87075; 99100; J3490

== ENCOUNTER 2023-11-28 22:47 | Emergency (ER) | payer MEDICARE, BC ==
[2023-11-28 23:32] LABS: BASOPHILS ABSOLUTE AUTO 0.1 K/mm3 (0.0-0.2); BASOPHILS PERCENT AUTO 0.6 % (0.0-1.0); EOSINOPHILS ABSOLUTE AUTO 0.2 K/mm3 (0.0-0.4); EOSINOPHILS PERCENT AUTO 1.9 % (0.0-6.0); HEMATOCRIT 36.6 % (42.0-52.0); HEMOGLOBIN 11.5 gm/dl (14.0-18.0); IMMATURE GRAN ABSOLUTE AUTO 0.04 K/mm3 (0.00-0.05); IMMATURE GRAN PERCENT AUTO 0.5 % (0.0-0.4); LYMPHOCYTES ABSOLUTE AUTO 0.8 K/mm3 (1.0-4.8); LYMPHOCYTES PERCENT AUTO 10.4 % (24.0-44.0); MEAN CORPUSCULAR HEMOGLOBIN 32.2 pg (28.0-32.0); MEAN CORPUSCULAR HGB CONC 31.4 g/dl (32.0-36.0); MEAN CORPUSCULAR VOLUME 102.5 fl (83.0-99.0); MEAN PLATELET VOLUME 8.8 fl (9.4-12.4); MONOCYTES ABSOLUTE AUTO 0.7 K/mm3 (0.0-0.8); MONOCYTES PERCENT AUTO 8.7 % (0.0-8.0); NEUTROPHILS ABSOLUTE AUTO 6.3 K/mm3 (1.8-7.7); NEUTROPHILS PERCENT AUTO 77.9 % (41.0-71.0); PLATELET COUNT,PLT 219 K/mm3 (150-400); RED BLOOD CELL COUNT 3.57 M/mm3 (4.52-5.90); WHITE BLOOD CELL COUNT,WBC 8.09 K/mm3 (3.9-11.3)
[2023-11-28] MEDS: Ondansetron 4 MG Tab.DIS PO ONE (23:37)
[2023-11-28 23:57] LABS: A/G RATIO 0.9 (1-2); ALBUMIN 3.1 g/dl (3.4-5.0); ANION GAP 11.1 (5-15); BILIRUBIN TOTAL 0.4 mg/dL (0.2-1.0); BUN/CREATININE RATIO 7.6 (14-18); CALCIUM 8.8 mg/dL (8.5-10.1); CREATININE 2.9 mg/dL (0.7-1.3); EST CRCL DRUG DOSING (CG) 18.62 mL/min; POTASSIUM,K 4.1 mEq/L (3.5-5.1); PROTEIN TOTAL,TP 6.7 g/dl (6.4-8.2)
[2023-11-29 00:33] LABS: APPEARANCE,URINE SLT CLOUDY (Clear); BILIRUBIN,URINE NEGATIVE (Negative); COLOR,URINE YELLOW (Yellow); GLUCOSE,URINE NEGATIVE (Negative); KETONES,URINE NEGATIVE (Negative); LEUKOCYTE ESTERASE,URINE NEGATIVE (Negative); NITRITE,URINE NEGATIVE (Negative); OCCULT BLOOD,URINE NEGATIVE (Negative); PH,URINE 8.5 (5.0-8.0); PROTEIN,URINE 2+ (Negative); UROBILINOGEN,URINE 0.2 (0.2-1.0)
[2023-11-29 00:39] LABS: RBC,URINE 0-5 /hpf (0-5); WBC,URINE 0-5 /hpf (0-5)
[2023-11-29 00:40] LABS: FINE GRANULAR CASTS,URINE 0-5 /lpf (0-5); HYALINE CASTS,URINE 0-5 /lpf (0-5); MUCUS,URINE NOT SEEN /hpf (FEW)
[2023-11-29 00:41] LABS: BACTERIA,URINE MANY /hpf (FEW)
[2023-11-29 01:53] VITALS: BP 132/79; PULSE 64
== END 2023-11-29 01:53 | disposition home or self-care (01) ==
LOC: JD.ED 22:47
DX: N18.6 End stage renal disease (principal); N39.0 Urinary tract infection, site not specified; E78.00 Pure hypercholesterolemia, unspecified; Z86.16 Personal history of COVID-19; Z99.2 Dependence on renal dialysis; Z79.899 Other long term (current) drug therapy; Z88.6 Allergy status to analgesic agent
CPT/HCPCS: 36415; 80053; 81001; 85025; 87086; 99284; A9270; 87088; 87186

== ENCOUNTER 2023-12-06 10:44 | Emergency (ER) | payer MEDICARE, BC ==
[2023-12-06 12:08] LABS: BASOPHILS PERCENT AUTO 0.1 % (0.0-1.0); EOSINOPHILS ABSOLUTE AUTO 0.3 K/mm3 (0.0-0.4); EOSINOPHILS PERCENT AUTO 3.2 % (0.0-6.0); HEMATOCRIT 30.2 % (42.0-52.0); IMMATURE GRAN ABSOLUTE AUTO 0.03 K/mm3 (0.00-0.05); IMMATURE GRAN PERCENT AUTO 0.3 % (0.0-0.4); LYMPHOCYTES ABSOLUTE AUTO 0.5 K/mm3 (1.0-4.8); MEAN CORPUSCULAR HEMOGLOBIN 32.6 pg (28.0-32.0); MEAN CORPUSCULAR HGB CONC 32.5 g/dl (32.0-36.0); MEAN CORPUSCULAR VOLUME 100.3 fl (83.0-99.0); MEAN PLATELET VOLUME 8.4 fl (9.4-12.4); MONOCYTES ABSOLUTE AUTO 0.7 K/mm3 (0.0-0.8); MONOCYTES PERCENT AUTO 8.4 % (0.0-8.0); NEUTROPHILS ABSOLUTE AUTO 7.1 K/mm3 (1.8-7.7); PLATELET COUNT,PLT 169 K/mm3 (150-400); RED BLOOD CELL COUNT 3.01 M/mm3 (4.52-5.90); WHITE BLOOD CELL COUNT,WBC 8.65 K/mm3 (3.9-11.3)
[2023-12-06 12:12] LABS: HEMOGLOBIN 9.8 gm/dl (14.0-18.0)
[2023-12-06 12:42] LABS: CORONAVIRUS COVID-19 NAA NEGATIVE (NEGATIVE); INFLUENZA A NAA NEGATIVE (NEGATIVE); RESPIRATORY SYNCYTIAL VIR NAA NEGATIVE (NEGATIVE)
[2023-12-06 12:45] LABS: A/G RATIO 0.8 (1-2); ALBUMIN 2.7 g/dl (3.4-5.0); ANION GAP 11.9 (5-15); BILIRUBIN TOTAL 0.5 mg/dL (0.2-1.0); CALCIUM 8.5 mg/dL (8.5-10.1); EST CRCL DRUG DOSING (CG) 14.46 mL/min; MAGNESIUM 1.8 mg/dL (1.8-2.4); POTASSIUM,K 3.9 mEq/L (3.5-5.1); PROTEIN TOTAL,TP 5.9 g/dl (6.4-8.2)
[2023-12-06 13:04] LABS: APPEARANCE,URINE CLEAR (Clear); BILIRUBIN,URINE NEGATIVE (Negative); COLOR,URINE YELLOW (Yellow); GLUCOSE,URINE NEGATIVE (Negative); KETONES,URINE NEGATIVE (Negative); LEUKOCYTE ESTERASE,URINE NEGATIVE (Negative); NITRITE,URINE NEGATIVE (Negative); OCCULT BLOOD,URINE NEGATIVE (Negative); PH,URINE 8.5 (5.0-8.0); PROTEIN,URINE 2+ (Negative); UROBILINOGEN,URINE 0.2 (0.2-1.0)
[2023-12-06 13:34] LABS: BACTERIA,URINE FEW /hpf (FEW); EPITHELIAL CELLS,URINE 0-5 /hpf (0-5); MUCUS,URINE FEW /hpf (FEW); RBC,URINE 0-5 /hpf (0-5); WBC,URINE 0-5 /hpf (0-5)
[2023-12-06 13:47] VITALS: BP 110/60; PULSE 70
== END 2023-12-06 13:40 | disposition home or self-care (01) ==
LOC: JD.ED 10:44
DX: N18.6 End stage renal disease (principal); D63.1 Anemia in chronic kidney disease; N39.0 Urinary tract infection, site not specified; E78.00 Pure hypercholesterolemia, unspecified; I48.91 Unspecified atrial fibrillation; Z99.2 Dependence on renal dialysis; Z88.5 Allergy status to narcotic agent; Z95.0 Presence of cardiac pacemaker; Z86.73 Personal history of transient ischemic attack (TIA), and cerebral infarction without residual deficits; Z86.16 Personal history of COVID-19; Z79.899 Other long term (current) drug therapy; Z79.02 Long term (current) use of antithrombotics/antiplatelets
CPT/HCPCS: 0241U; 36415; 80053; 81001; 83735; 85025; 93005; 99285

== ENCOUNTER 2024-03-02 20:05 | Emergency (ER) | payer MEDICARE, BC ==
[2024-03-02] MEDS ORDERED: Sodium Chloride 0.9% 10 ML Syringe FLUSH PRN (20:27)
[2024-03-02] MEDS: Sodium Chloride 0.9% 1,000 ML IV SCH (20:38)
[2024-03-02] MEDS: Ondansetron 4 MG/2 ML SDV IVPUSH ONE (20:38)
[2024-03-02] MEDS ORDERED: Piperacillin/Tazobactam 2.25 GM in Sodium Chloride 0.9% 100 ML IV ONE (21:21)
[2024-03-02 21:37] LABS: BASOPHILS PERCENT AUTO 0.2 % (0.0-1.0); HEMATOCRIT 37.6 % (42.0-52.0); HEMOGLOBIN 11.8 gm/dl (14.0-18.0); IMMATURE GRAN ABSOLUTE AUTO 0.12 K/mm3 (0.00-0.05); IMMATURE GRAN PERCENT AUTO 0.6 % (0.0-0.4); LYMPHOCYTES ABSOLUTE AUTO 0.4 K/mm3 (1.0-4.8); LYMPHOCYTES PERCENT AUTO 2.1 % (24.0-44.0); MEAN CORPUSCULAR HEMOGLOBIN 33.1 pg (28.0-32.0); MEAN CORPUSCULAR HGB CONC 31.4 g/dl (32.0-36.0); MEAN CORPUSCULAR VOLUME 105.3 fl (83.0-99.0); MEAN PLATELET VOLUME 8.8 fl (9.4-12.4); MONOCYTES PERCENT AUTO 4.9 % (0.0-8.0); NEUTROPHILS ABSOLUTE AUTO 18.3 K/mm3 (1.8-7.7); NEUTROPHILS PERCENT AUTO 92.2 % (41.0-71.0); PLATELET COUNT,PLT 289 K/mm3 (150-400); RED BLOOD CELL COUNT 3.57 M/mm3 (4.52-5.90); WHITE BLOOD CELL COUNT,WBC 19.87 K/mm3 (3.9-11.3)
[2024-03-02] MEDS: Piperacillin/Tazobactam 2.25 GM in Sodium Chloride 0.9% 50 ML IV ONE (21:56)
[2024-03-02 22:01] LABS: A/G RATIO 0.9 (1-2); ALANINE AMINOTRANSFERASE,ALT 24 U/L (16-63); ALBUMIN 3.1 g/dl (3.4-5.0); ALKALINE PHOSPHATASE 108 U/L (46-116); ANION GAP 13.4 (5-15); ASPARTATE AMNIOTRANSFERASE,AST 25 U/L (15-37); BILIRUBIN TOTAL 0.5 mg/dL (0.2-1.0); BLOOD UREA NITROGEN,BUN 33 mg/dL (7-18); BUN/CREATININE RATIO 6.6 (14-18); CALCIUM 9.4 mg/dL (8.5-10.1); CARBON DIOXIDE,CO2 33 mEq/L (21-32); CHLORIDE,CL 96 mEq/L (98-107); ESTIMATED GFR 11 mL/min (>60); GLUCOSE RANDOM 122 mg/dL (70-99); POTASSIUM,K 4.4 mEq/L (3.5-5.1); PROTEIN TOTAL,TP 6.7 g/dl (6.4-8.2); SODIUM,NA 138 mEq/L (136-145)
[2024-03-02 22:04] LABS: SLIDE REVIEW ABNORMAL SMEAR
[2024-03-02] MEDS: Morphine 4 MG/ML Syringe IVPUSH ONE (22:59)
[2024-03-02 23:06] LABS: LIPASE 662 U/L (16-77)
[2024-03-02 23:46] VITALS: BP 106/54; PULSE 69
== END 2024-03-02 23:05 ==
LOC: JD.ED 20:05
DX: K63.89 Other specified diseases of intestine (principal); K55.9 Vascular disorder of intestine, unspecified; E78.00 Pure hypercholesterolemia, unspecified; K21.9 Gastro-esophageal reflux disease without esophagitis; N18.6 End stage renal disease; Z88.5 Allergy status to narcotic agent; Z79.899 Other long term (current) drug therapy; Z79.02 Long term (current) use of antithrombotics/antiplatelets; Z95.5 Presence of coronary angioplasty implant and graft; Z86.73 Personal history of transient ischemic attack (TIA), and cerebral infarction without residual deficits; Z86.16 Personal history of COVID-19; Z99.2 Dependence on renal dialysis
CPT/HCPCS: 36415; 74176; 80053; 83690; 85025; 96361; 96365; 96375; 99285; J2270; J2405; J2543; J3490; J7030

== ENCOUNTER 2024-05-29 16:18 | Emergency (ER) | payer MEDICARE, BC ==
[2024-05-29 16:43] LABS: HEMATOCRIT 29.1 % (42.0-52.0); HEMOGLOBIN 8.9 gm/dl (14.0-18.0); MEAN CORPUSCULAR HEMOGLOBIN 29.1 pg (28.0-32.0); MEAN CORPUSCULAR HGB CONC 30.6 g/dl (32.0-36.0); MEAN CORPUSCULAR VOLUME 95.1 fl (83.0-99.0); MEAN PLATELET VOLUME 9.1 fl (9.4-12.4); PLATELET COUNT,PLT 202 K/mm3 (150-400); RED BLOOD CELL COUNT 3.06 M/mm3 (4.52-5.90); WHITE BLOOD CELL COUNT,WBC 11.11 K/mm3 (3.9-11.3)
[2024-05-29 16:57] LABS: PCO2 ARTERIAL 43.7 mmHg (35.0-45.0)
[2024-05-29 16:58] LABS: BASE EXCESS ARTERIAL 9.6 (-2-2.0); BICARBONATE,ARTERIAL 33.6 meq/L (22.0-26.0); O2 SATURATION ARTERIAL 96.7 % (96.0-97.0)
[2024-05-29 17:03] LABS: INR 1.04
[2024-05-29 17:05] LABS: A/G RATIO 0.7 (1-2); ALANINE AMINOTRANSFERASE,ALT 65 U/L (16-63); ALBUMIN 2.6 g/dl (3.4-5.0); ALKALINE PHOSPHATASE 215 U/L (46-116); ANION GAP 11.1 (5-15); ASPARTATE AMNIOTRANSFERASE,AST 74 U/L (15-37); BILIRUBIN TOTAL 0.4 mg/dL (0.2-1.0); BLOOD UREA NITROGEN,BUN 31 mg/dL (7-18); BUN/CREATININE RATIO 7.6 (14-18); C-REACTIVE PROTEIN 19.66 mg/dL (<0.30); CALCIUM 9.2 mg/dL (8.5-10.1); CARBON DIOXIDE,CO2 34 mEq/L (21-32); CHLORIDE,CL 97 mEq/L (98-107); CREATININE 4.1 mg/dL (0.7-1.3); ESTIMATED GFR 13 mL/min (>60); GLUCOSE RANDOM 98 mg/dL (70-99); MAGNESIUM 1.8 mg/dL (1.8-2.4); POTASSIUM,K 4.1 mEq/L (3.5-5.1); PROTEIN TOTAL,TP 6.4 g/dl (6.4-8.2); SODIUM,NA 138 mEq/L (136-145)
[2024-05-29 17:10] LABS: BAND PERCENT MAN 0 % (0-10); BASOPHILS PERCENT MAN 0 (0.2-1.2); EOSINOPHILS PERCENT MAN 3 % (0.8-7.0); LACTIC ACID 1.3 mmol/L (0.4-2.0); LYMPHOCYTES % ATYPICAL MANUAL 0 %; LYMPHOCYTES PERCENT MAN 4 % (20-40); MONOCYTES PERCENT MAN 2 % (2-10); PLATELET COUNT ESTIMATE ADEQUATE
[2024-05-29] MEDS: Albuterol/Ipratropium 3.0-0.5 MG/3 ML Neb Soln NEB ONE (17:10)
[2024-05-29 17:12] LABS: TOXIC GRANULATION FEW
[2024-05-29] MEDS: methylPREDNISolone Sodium Succinate 125 MG/2 ML SDV IVPUSH ONE (17:29)
[2024-05-29] MEDS: Sodium Chloride 0.9% 10 ML Syringe FLUSH PRN (17:29)
[2024-05-29] MEDS: Acetaminophen 325 MG Tab PO ONE (17:48)
[2024-05-29] MEDS: HYDROmorphone 0.5 MG/0.5 ML Syringe IVPUSH ONE (19:12)
[2024-05-29 19:52] LABS: APPEARANCE,URINE SLT CLOUDY (Clear); BILIRUBIN,URINE NEGATIVE (Negative); COLOR,URINE DARK YELLOW (Yellow); GLUCOSE,URINE NEGATIVE (Negative); KETONES,URINE NEGATIVE (Negative); LEUKOCYTE ESTERASE,URINE NEGATIVE (Negative); NITRITE,URINE NEGATIVE (Negative); OCCULT BLOOD,URINE NEGATIVE (Negative); PH,URINE 8.5 (5.0-8.0); PROTEIN,URINE 2+ (Negative); UROBILINOGEN,URINE 0.2 (0.2-1.0)
[2024-05-29 19:59] LABS: BACTERIA,URINE MODERATE /hpf (FEW); EPITHELIAL CELLS,URINE 0-5 /hpf (0-5); HYALINE CASTS,URINE 0-5 /lpf (0-5); MUCUS,URINE RARE /hpf (FEW); RBC,URINE 0-5 /hpf (0-5); WBC,URINE 0-5 /hpf (0-5)
[2024-05-29] MEDS ORDERED: Heparin Sodium 5,000 Units/ML Vial IVPUSH ONE (20:12)
[2024-05-29] MEDS: VANCOmycin 1.75 GM/350 ML 1.75 GM in Premix Bag 1 BAG IV ONE (20:20)
[2024-05-29] MEDS: Heparin Sodium/D5W 25,000 UNITS/500 ML BAG IV SCH (21:21)
[2024-05-29] MEDS: Heparin Sodium 5,000 Units/ML Vial IV ONE (21:21)
[2024-05-30] MEDS: HYDROmorphone 0.5 MG/0.5 ML Syringe IVPUSH ONE (01:24)
[2024-05-30 06:12] VITALS: BP 129/75; PULSE 73
== END 2024-05-30 05:58 ==
LOC: JD.ED 16:18
DX: N18.6 End stage renal disease (principal); D63.1 Anemia in chronic kidney disease; I48.91 Unspecified atrial fibrillation; I70.90 Unspecified atherosclerosis; E78.00 Pure hypercholesterolemia, unspecified; Z99.2 Dependence on renal dialysis; Z86.73 Personal history of transient ischemic attack (TIA), and cerebral infarction without residual deficits; Z86.16 Personal history of COVID-19; Z79.02 Long term (current) use of antithrombotics/antiplatelets; Z79.899 Other long term (current) drug therapy; Z88.5 Allergy status to narcotic agent; Z95.0 Presence of cardiac pacemaker
CPT/HCPCS: 36415; 36600; 71045; 71045-26; 73630-26-RT; 73630-RT; 80053; 81001; 82803; 83605; 83735; 85007; 85027; 85610; 85652; 85730; 86140; 87040; 87154; 93926-26-RT; 93926-RT; 93971-26-RT; 93971-RT; 94640; 96365; 96366; 96368; 96375; 96376; 99285; 99285-25; A9270-GY; J1170; J1644; J2919; J3372; J3490; J7620-GY